=== PATIENT | male | born 1960 | race Caucasian/White ===

== ENCOUNTER 2019-04-02 10:22 | Emergency (ER) | payer OTHER ==
[~2019-04-02] VITALS: Ht 188 cm; Wt 126.1 kg
[~2019-04-02 10:22] MED LIST: AMIODARONE HCL400 MG PO; AMOXICILLIN500 MG PO; ATORVASTATIN CA20 MG PO; AUGMENTIN 875-1 EACH PO; Apixaban PO; CARDIZEM30 MG PO; CENTRUM SILVER1 EAC3 PO; COLACE100 MG/10 NG; DEPAKOTE250 MG PO; DULCOLAX SUPP10 MG PR; Diltiazem Hcl PO; ELOQUIST PO; FENOFIBRATE145 MG PO; FLAGYL500 MG; FUROSEMIDE20 MG PO; Fluticasone Propionate NS; LACTULOSE20 GM/30 M PO; LISINOPRIL10 MG PO; METOLAZONE5 MG PO; MIDODRINE HCL5 MG PO; PENICILLIN V P500 MG PO; PREDNISONE20 MG PO; RANITIDINE HCL300 M1 PO; SEROQUEL100 MG PO; SEROQUEL25 MG PO; TYLENOL WITH C1 EACH PO; VITAMIN D1000 UNI1 PO; eliquis PO; nystatin cream TOP
--- OUTSIDE RECORDS SUMMARY | 2019-04-02 10:26 | XMS REPORT | Clinical Summary ---
Author Author Blanca Yarsani Organization Blanca Yarsani Address Unknown Phone Unavailable Care Team Providers Care Revenue Enforcement Collection Agent Name Role Phone Juanito Fam MD PCP Allergies Comments Active Allergy Reactions Severity Noted Date Previous amiodarone toxicity Amiodarone High 05/30/2018 Medications End Date Status Medication Sig Dispensed Refills Start Date Active acetaminophen-codeine TK 1 TO 2 TS 0 (TYLENOL WITH CODEINE #3) PO Q 4 TO 6 H 8 300-30 mg per tablet PRN Active DIGOX 125 mcg tablet 0 8 Active furosemide (LASIX) 40 mg TK 1 T PO QAM 0 tablet 8 Active metoprolol tartrate TK 1 T PO D 3 (LOPRESSOR) 25 mg tablet 8 Active pantoprazole (PROTONIX) TK 1 T PO 3 40 MG EC tablet QAM AC 8 Active potassium chloride 40 Take by 0 mEq/15 mL liquid mouth. 06/01/2018 Discontinued ELIQUIS 5 mg tablet Take 5 mg by 0 mouth 2 (two) 7 times a day. 06/01/2018 Discontinued furosemide (LASIX) 40 mg Take 40 mg by 0 tablet mouth every morning. 06/01/2018 Discontinued tamsulosin (FLOMAX) 0.4 Take 0.4 mg 0 mg capsule,extended by mouth release 24hr every morning. 06/01/2018 Discontinued potassium chloride Take 10 mEq 0 (K-DUR,KLOR-CON) 10 MEQ by mouth CR tablet every morning. 06/01/2018 Discontinued spironolactone Take 50 mg by 0 (ALDACTONE) 50 MG tablet mouth every morning. 06/01/2018 Discontinued lactulose 10 gram/15 mL Take 10 g by 0 (15 mL) solution mouth 2 (two) times a day as needed. 06/01/2018 Discontinued diltiazem (CardIZEM) 90 Take 90 mg by 0 MG tablet mouth 2 (two) times a day. 06/01/2018 Discontinued DIGOXIN ORAL Take 250 mcg 0 by mouth daily. 07/01/2018 atorvastatin (LIPITOR) 20 Take 1 tablet 30 tablet 0 201 MG tablet (20 mg total) 8 by mouth nightly for 30 days. 06/20/2018 Discontinued tamsulosin (FLOMAX) 0.4 Take 1 30 capsule 0 06/02/201 mg capsule capsule (0.4 8 mg total) by mouth every morning for 30 days. 07/01/2018 diltiazem (CardIZEM) 90 Take 1 tablet 60 tablet 0 201 MG tablet (90 mg total) 8 by mouth 2 (two) times a day for 30 days. 07/02/2018 digOXIN (LANOXIN) 250 mcg Take 1 tablet 30 tablet 0 06/02/201 tablet (250 mcg 8 total) by mouth daily for 30 days. 07/01/2018 apixaban (ELIQUIS) 5 mg Take 1 tablet 60 tablet 0 tablet (5 mg total) 8 by mouth 2 (two) times a day for 30 days. 07/02/2018 furosemide (LASIX) 40 mg Take 1 tablet 30 tablet 0 201 tablet (40 mg total) 8 by mouth every morning for 30 days. 06/20/2018 Discontinued potassium chloride Take 1 tablet 30 tablet 0 (K-DUR,KLOR-CON) 10 MEQ (10 mEq 8 CR tablet total) by mouth every morning for 30 days. 06/20/2018 Discontinued spironolactone Take 1 tablet 30 tablet 0 (ALDACTONE) 50 MG tablet (50 mg total) 8 by mouth every morning for 30 days. 06/20/2018 Discontinued nicotine (NICODERM CQ) 21 Place 1 patch 30 patch 0 mg/24 hr on the skin 8 daily for 30 days. 07/21/2018 atorvastatin (LIPITOR) 20 Take 1 tablet 30 tablet 0 201 MG tablet (20 mg total) 8 by mouth nightly for 30 days. 07/21/2018 aspirin 81 mg chewable Chew 1 tablet 30 tablet 0 tablet (81 mg total) 8 daily for 30 days. 07/21/2018 thiamine mononitrate, vit Take 1 tablet 30 tablet 0 B1, (B-1) 100 mg tablet (100 mg 8 total) by mouth daily for 30 days. 08/31/2018 Discontinued ELIQUIS 5 mg tablet 0 8 08/31/2018 Discontinued naproxen (NAPROSYN) 500 0 MG tablet 8 09/30/2018 diltiazem SR (CardIZEM Take 1 60 capsule 0 SR) 90 MG 12 hr capsule capsule (90 8 mg total) by mouth 2 (two) times a day for 30 days. 09/30/2018 apixaban (ELIQUIS) 5 mg Take 1 tablet 60 tablet 0 tablet (5 mg total) 8 by mouth 2 (two) times a day for 30 days. 10/01/2018 aspirin (ECOTRIN) 81 MG Take 1 tablet 30 tablet 0 enteric coated tablet (81 mg total) 8 by mouth daily for 30 days. 09/30/2018 atorvastatin (LIPITOR) 20 Take 1 tablet 30 tablet 0 MG tablet (20 mg total) 8 by mouth nightly for 30 days. Active Problems Problem Noted Date Orthostatic syncope 06/20/2018 Atrial fibrillation with rapid ventricular response 05/30/2018 Atrial fibrillation with RVR 10/08/2017 Hypertension Coronary artery disease CHF (congestive heart failure) Encounters Care Team Description Date Type Specialty Gaurav Mcdonald MD Bavare, Arusha Amod, MD Li, Xiao Hong, MD Atrial fibrillation with RVR (HCC) (Primary Dx) 08/28/2018 Hospital General Internal Medicine - Encounter 08/31/2018 Sujata Gilmore Jr., Darnell Rose MD Morris, David, DO Roberts, Matthew Thomas, DO Orthostatic syncope (Primary Dx); Lactic acidosis; Alcoholic intoxication without complication; Scalp laceration, initial encounter; Closed head injury, initial encounter 06/19/2018 Emergency General Internal Medicine - 06/21/2018 Anila Fajardo MD Fall, initial encounter (Primary Dx); Syncope, unspecified syncope type; Closed fracture of distal end of left radius, unspecified fracture morphology, initial encounter; Alcoholic intoxication with complication; Atrial fibrillation, unspecified type; Closed fracture of distal end of left ulna, unspecified fracture morphology, initial encounter 06/16/2018 Emergency Emergency Medicine Ricardo, Piter Byers, Luke Islas, Atrial fibrillation with rapid ventricular response (Primary Dx); Alcoholic intoxication without complication 05/30/2018 [facility] General Internal Medicine - Encounter 06/01/2018 after 04/01/2018 Social History Date Tobacco Use Types Packs/Day Years Used Current Every Day Smoker Cigarettes Smokeless Tobacco: Never Used Tobacco Cessation: Ready to Quit: No; Counseling Given: No Alcohol Use Drinks/Week oz/Week Comments Yes occasional ETOH per pt. Sex Assigned at Date Recorded Not on file Industry Job Start Date Occupation Not on file Not on file Not on file Travel End Travel History Travel Start No recent travel history available. Last Filed Vital Signs Time Taken Vital Sign Reading 08/31/2018 12:18 PM CDT Blood Pressure 113/74 08/31/2018 12:18 PM CDT Pulse 85 08/31/2018 12:18 PM CDT Temperature 36.6 C (97.8 F) 08/31/2018 12:18 PM CDT Respiratory Rate 21 08/31/2018 12:18 PM CDT Oxygen Saturation 96% - Inhaled Oxygen - Concentration 08/28/2018 11:27 PM CDT Weight 113 kg (250 lb) 08/29/2018 4:51 AM CDT Height 188 cm (6' 2") 08/28/2018 11:27 PM CDT Body Mass Index 32.1 Plan of Treatment Health Maintenance Due Date Last Done Comments COLON CANCER SCREENING 2010 SHINGLES VACCINES (#1) 2010 INFLUENZA VACCINE 06/14/2019 Procedures Comments Procedure Name Priority Date/Time Associated Diagnosis ESTIMATED GFR Routine 08/31/2018 4:18 AM CDT BASIC METABOLIC PANEL Routine 08/31/2018 4:18 AM CDT HC COMPLETE BLD COUNT Routine 08/31/2018 W/AUTO DIFF 4:18 AM CDT URINALYSIS, AUTOMATED Routine 08/30/2018 WITH MICROSCOPY 8:49 PM CDT URINE DRUGS OF ABUSE Routine 08/30/2018 SCREEN 8:49 PM CDT ESTIMATED GFR Routine 08/30/2018 5:33 AM CDT BASIC METABOLIC PANEL Routine 08/30/2018 5:33 AM CDT HC COMPLETE BLD COUNT Routine 08/30/2018 W/AUTO DIFF 5:33 AM CDT ECHOCARDIOGRAM 2D Routine 08/29/2018 COMPLETE W MMODE SPECTRAL 8:28 AM CDT COLOR DOPPLER ([id number]) LIPID PANEL Routine 08/29/2018 6:00 AM CDT TROPONIN Routine 08/29/2018 6:00 AM CDT ESTIMATED GFR Routine 08/29/2018 6:00 AM CDT MAGNESIUM LEVEL Routine 08/29/2018 6:00 AM CDT BASIC METABOLIC PANEL Routine 08/29/2018 6:00 AM CDT HC COMPLETE BLD COUNT Routine 08/29/2018 W/AUTO DIFF 6:00 AM CDT DIGOXIN LEVEL STAT 08/29/2018 2:44 AM CDT TROPONIN Timed 08/29/2018 2:44 AM CDT XR CHEST 1 VW PORTABLE STAT 08/29/2018 12:10 AM CDT ECG ED PRELIMINARY Routine 08/28/2018 INTERPRETATION 11:46 PM CDT SC CRITICAL CARE, ADDL 30 Routine 08/28/2018 MIN 11:46 PM CDT SC CRITICAL CARE, E/M Routine 08/28/2018 30-74 MINUTES 11:46 PM CDT ESTIMATED GFR STAT 08/28/2018 11:34 PM CDT B NATRIURETIC PEPTIDE STAT 08/28/2018 11:34 PM CDT TROPONIN STAT 08/28/2018 11:34 PM CDT COMPREHENSIVE METABOLIC STAT 08/28/2018 PANEL 11:34 PM CDT HC COMPLETE BLD COUNT STAT 08/28/2018 W/AUTO DIFF 11:34 PM CDT ECG 12-LEAD STAT 08/28/2018 11:28 PM CDT LACTIC ACID LEVEL Routine 06/20/2018 5:40 AM CDT ZZESTIMATED GFR Routine 06/20/2018 5:07 AM CDT ALCOHOL LEVEL, BLOOD Routine 06/20/2018 5:07 AM CDT COMPREHENSIVE METABOLIC Routine 06/20/2018 PANEL 5:07 AM CDT ZZESTIMATED GFR STAT 06/19/2018 10:44 PM CDT ALCOHOL LEVEL, BLOOD STAT 06/19/2018 10:44 PM CDT COMPREHENSIVE METABOLIC STAT 06/19/2018 PANEL 10:44 PM CDT LACTIC ACID LEVEL Routine 06/19/2018 10:44 PM CDT LIPID PANEL Routine 06/19/2018 10:40 PM CDT TROPONIN Timed 06/19/2018 10:24 PM CDT BETA HYDROXYBUTYRATE Timed 06/19/2018 8:20 PM CDT LACTIC ACID LEVEL Timed 06/19/2018 8:[address] HEAD WO CONTRAST STAT 06/19/2018 8:[address] CERVICAL SPINE WO STAT 06/19/2018 CONTRAST 8:13 PM CDT ZZESTIMATED GFR STAT 06/19/2018 6:30 PM CDT ALCOHOL LEVEL, BLOOD STAT 06/19/2018 6:30 PM CDT B NATRIURETIC PEPTIDE STAT 06/19/2018 6:30 PM CDT TROPONIN STAT 06/19/2018 6:30 PM CDT COMPREHENSIVE METABOLIC STAT 06/19/2018 PANEL 6:30 PM CDT TYPE AND SCREEN Routine 06/19/2018 6:30 PM CDT PARTIAL THROMBOPLASTIN STAT 06/19/2018 TIME (PTT) 6:30 PM CDT PROTHROMBIN TIME WITH INR STAT 06/19/2018 6:30 PM CDT HC COMPLETE BLD COUNT STAT 06/19/2018 W/AUTO DIFF 6:30 PM CDT POC GLUCOSE Routine 06/19/2018 6:27 PM CDT ECG 12-LEAD STAT 06/19/2018 6:23 PM CDT ECG ED PRELIMINARY Routine 06/19/2018 INTERPRETATION 6:19 PM CDT SC CRITICAL CARE, E/M Routine 06/19/2018 30-74 MINUTES 6:19 PM CDT SC RESUPERF WND BODY Routine 06/19/2018 7.6-12.5 CM 6:19 PM CDT ALCOHOL LEVEL, BLOOD Timed 06/16/2018 7:45 AM CDT LACTIC ACID LEVEL, SEPSIS Timed 06/16/2018 - NOW AND REPEAT 2X EVERY 7:45 AM CDT 3 HOURS TROPONIN Timed 06/16/2018 4:30 AM CDT LACTIC ACID LEVEL, SEPSIS Timed 06/16/2018 - NOW AND REPEAT 2X EVERY 4:30 AM CDT 3 HOURS XR WRIST 3+ VW LEFT STAT 06/16/2018 2:13 AM CDT DIGOXIN LEVEL STAT 06/16/2018 2:05 AM CDT ZZESTIMATED GFR STAT 06/16/2018 2:05 AM CDT ALCOHOL LEVEL, BLOOD STAT 06/16/2018 2:05 AM CDT B NATRIURETIC PEPTIDE STAT 06/16/2018 2:05 AM CDT TROPONIN STAT 06/16/2018 2:05 AM CDT CREATINE KINASE, TOTAL STAT 06/16/2018 (CPK) 2:05 AM CDT LACTIC ACID LEVEL, SEPSIS STAT 06/16/2018 - NOW AND REPEAT 2X EVERY 2:05 AM CDT 3 HOURS PARTIAL THROMBOPLASTIN STAT 06/16/2018 TIME (PTT) 2:05 AM CDT PROTHROMBIN TIME WITH INR STAT 06/16/2018 2:05 AM CDT COMPREHENSIVE METABOLIC STAT 06/16/2018 PANEL 2:05 AM CDT HC COMPLETE BLD COUNT STAT 06/16/2018 W/AUTO DIFF 2:05 AM CDT ECG 12-LEAD STAT 06/16/2018 1:45 AM CDT SC APPLY LONG ARM SPLINT Routine 06/16/2018 1:39 AM CDT ZZESTIMATED GFR Routine 06/01/2018 7:12 AM CDT HC COMPLETE BLD COUNT Routine 06/01/2018 W/AUTO DIFF 7:12 AM CDT PHOSPHORUS LEVEL Routine 06/01/2018 7:12 AM CDT MAGNESIUM LEVEL Routine 06/01/2018 7:12 AM CDT COMPREHENSIVE METABOLIC Routine 06/01/2018 PANEL 7:12 AM CDT URINE CULTURE SCREEN Routine 05/31/2018 11:02 PM CDT URINALYSIS SCREEN AND Routine 05/31/2018 MICROSCOPY, WITH REFLEX 11:00 PM CDT TO CULTURE GRAM STAIN ONLY Routine 05/31/2018 11:00 PM CDT URINE CULTURE Routine 05/31/2018 11:00 PM CDT ECHOCARDIOGRAM 2D Routine 05/31/2018 COMPLETE W MMODE SPECTRAL 8:12 AM CDT COLOR DOPPLER ([id number]) LIPID PANEL Routine 05/31/2018 4:17 AM CDT TROPONIN Routine 05/31/2018 4:17 AM CDT PHOSPHORUS LEVEL Routine 05/31/2018 4:17 AM CDT ZZESTIMATED GFR Routine 05/31/2018 4:17 AM CDT THYROID STIMULATING Routine 05/31/2018 HORMONE 4:17 AM CDT T3, FREE Routine 05/31/2018 4:17 AM CDT PROTHROMBIN TIME WITH INR Routine 05/31/2018 4:17 AM CDT PARTIAL THROMBOPLASTIN Routine 05/31/2018 TIME (PTT) 4:17 AM CDT MAGNESIUM LEVEL Routine 05/31/2018 4:17 AM CDT LIPID PANEL Routine 05/31/2018 4:17 AM CDT HEMOGLOBIN A1C Routine 05/31/2018 4:17 AM CDT COMPREHENSIVE METABOLIC Routine 05/31/2018 PANEL 4:17 AM CDT HC COMPLETE BLD COUNT Routine 05/31/2018 W/AUTO DIFF 4:17 AM CDT B NATRIURETIC PEPTIDE Routine 05/31/2018 4:17 AM CDT ECG 12-LEAD Routine 05/31/2018 4:12 AM CDT MAGNESIUM LEVEL STAT 05/31/2018 1:26 AM CDT PHOSPHORUS LEVEL STAT 05/31/2018 1:26 AM CDT TROPONIN STAT 05/31/2018 1:26 AM CDT ECG 12-LEAD Routine 05/30/2018 11:41 PM CDT ECG 12-LEAD Routine 05/30/2018 7:35 PM CDT ECG 12-LEAD STAT 05/30/2018 6:06 PM CDT ALCOHOL LEVEL, BLOOD STAT 05/30/2018 5:24 PM CDT XR CHEST 1 VW PORTABLE STAT 05/30/2018 5:16 PM CDT BILIRUBIN DIRECT Routine 05/30/2018 5:04 PM CDT THYROID STIMULATING Routine 05/30/2018 HORMONE 5:04 PM CDT ZZESTIMATED GFR STAT 05/30/2018 5:04 PM CDT B NATRIURETIC PEPTIDE STAT 05/30/2018 5:04 PM CDT TROPONIN STAT 05/30/2018 5:04 PM CDT COMPREHENSIVE METABOLIC STAT 05/30/2018 PANEL 5:04 PM CDT HC COMPLETE BLD COUNT STAT 05/30/2018 W/AUTO DIFF 5:04 PM CDT ECG ED PRELIMINARY Routine 05/30/2018 INTERPRETATION 4:33 PM CDT SC CRITICAL CARE, E/M Routine 05/30/2018 30-74 MINUTES 4:33 PM CDT ECG 12-LEAD STAT 05/30/2018 4:32 PM CDT after 04/01/2018 Results * Estimated GFR (08/31/2018 4:18 AM CDT) Only the most recent of 4 results within the time period is included. Pathologist [facility] Estimated GFR >=90 mL/min/1.73 m2 [facility] DEPARTMENT Comment: OF PATHOLOGY CatergoryUnitsInte AND GENOMIC rpretation MEDICINE G1 >=90 Normal or high G2 60-89Mildly decreased [id number] Mildly to moderately decreased [id number] Moderately to severely decreased G4 15-29Severely decreased G5 <15Kidney failure The eGFR was calculated using the Chronic Kidney Disease Epidemiology Collaboration (CKD-EPI) equation. Interpretation is based on recommendations of the National Kidney Foundation-Kidney Disease Outcomes Quality Initiative (NKF-KDOQI) published in 2014. Specimen Plasma specimen Performing Organization Address City/State/Zipcode Phone Number [place] [phone] [place] [address] PATHOLOGY AND [facility] * CBC with platelet and differential (08/31/2018 4:18 AM CDT) Only the most recent of 9 results within the time period is included. Pathologist [facility] WBC 8.7 4.2 - 11.0 k/uL [facility] DEPARTMENT OF PATHOLOGY AND GENOMIC MEDICINE RBC 4.63 4.04 - 5.86 m/uL [facility] PATHOLOGY AND GENOMIC MEDICINE HGB 14.9 13.0 - 17.3 g/dL [facility] PATHOLOGY AND GENOMIC MEDICINE HCT 45.5 (H) 34.0 - 45.0 % [facility] DEPARTMENT PATHOLOGY AND GENOMIC MEDICINE MCV 98.3 (H) 80.0 - 98.0 fL [facility] DEPARTMENT OF PATHOLOGY AND GENOMIC MEDICINE MCH 32.2 27.0 - 34.0 pg [facility] DEPARTMENT OF PATHOLOGY AND GENOMIC MEDICINE MCHC 32.7 31.5 - 36.5 g/dL [facility] DEPARTMENT OF PATHOLOGY AND GENOMIC MEDICINE RDW - SD 46.9 37.0 - 51.0 fL [facility] DEPARTMENT OF PATHOLOGY AND GENOMIC MEDICINE MPV 9.4 7.4 - 10.4 fL [facility] DEPARTMENT OF PATHOLOGY AND GENOMIC MEDICINE Platelet count 245 150 - 400 k/uL [facility] DEPARTMENT OF PATHOLOGY AND GENOMIC MEDICINE Nucleated RBC 0.00 /100 WBC [facility] DEPARTMENT OF PATHOLOGY AND GENOMIC MEDICINE Neutrophils 61.2 36.0 - 66.0 % [facility] DEPARTMENT OF PATHOLOGY AND GENOMIC MEDICINE Lymphocytes 25.8 24.0 - 44.0 % [facility] DEPARTMENT OF PATHOLOGY AND GENOMIC MEDICINE Monocytes 10.1 (H) 0.0 - 6.0 % [facility] DEPARTMENT OF PATHOLOGY AND GENOMIC MEDICINE Eosinophils 1.7 0.0 - 6.0 % [facility] DEPARTMENT OF PATHOLOGY AND GENOMIC MEDICINE Basophils 0.5 0.0 - 1.2 % [facility] DEPARTMENT OF PATHOLOGY AND GENOMIC MEDICINE Immature 0.7 0.0 - 1.0 % [facility] granulocytes OF PATHOLOGY AND GENOMIC MEDICINE Specimen Blood Performing Organization Address City/[facility] Phone Number [address] [place] [address] PATHOLOGY AND [facility] * Basic metabolic panel (08/31/2018 4:18 AM CDT) Only the most recent of 3 results within the time period is included. Pathologist [facility] Sodium 137 135 - 150 mEq/L [facility] DEPARTMENT OF PATHOLOGY AND GENOMIC MEDICINE Potassium 4.4 3.5 - 5.0 mEq/L [facility] DEPARTMENT OF PATHOLOGY AND GENOMIC MEDICINE Chloride 102 98 - 112 mEq/L [facility] DEPARTMENT OF PATHOLOGY AND GENOMIC MEDICINE CO2 26 24 - 31 mmol/L [facility] DEPARTMENT OF PATHOLOGY AND GENOMIC MEDICINE Anion gap 9@ANIO 7 - 15 mEq/L [facility] DEPARTMENT OF PATHOLOGY AND GENOMIC MEDICINE BUN 19 (H) 7 - 18 mg/dL [facility] DEPARTMENT OF PATHOLOGY AND GENOMIC MEDICINE Creatinine 0.80 0.70 - 1.20 mg/dL [facility] DEPARTMENT OF PATHOLOGY AND GENOMIC MEDICINE Glucose 115 (H) 65 - 100 mg/dL [facility] DEPARTMENT OF PATHOLOGY AND GENOMIC MEDICINE Calcium 9.3 8.3 - 10.2 mg/dL [facility] DEPARTMENT PATHOLOGY AND GENOMIC MEDICINE Specimen Plasma specimen Performing Organization Address City/[facility] Cent[facility]ode Phone Number [address] [place] [address] [facility] * Urine drugs of abuse screen (08/30/2018 8:49 PM CDT) Amphetamine Negative [facility] DEPARTMENT screen, urine OF PATHOLOGY AND GENOMIC MEDICINE Barbiturate Negative [facility] screen, urine OF PATHOLOGY AND GENOMIC MEDICINE Benzodiazepine Negative [facility] screen, urine OF PATHOLOGY AND GENOMIC MEDICINE Cannabinoid Negative [facility] screen, urine OF PATHOLOGY AND GENOMIC MEDICINE Cocaine screen, Negative [facility] DEPARTMENT urine OF PATHOLOGY AND GENOMIC MEDICINE Methadone Negative [facility] DEPARTMENT metabolite OF PATHOLOGY (EDDP), urine AND GENOMIC MEDICINE Opiates screen, Negative [facility] DEPARTMENT urine OF PATHOLOGY AND GENOMIC MEDICINE Phencyclidine Negative [facility] DEPARTMENT screen, urine OF PATHOLOGY AND GENOMIC MEDICINE Specimen Urine Performing Organization Address City/[facility]/Zipcode Phone Number [facility] [address] [place] [address] PATHOLOGY AND [facility] MEDICINE * Urinalysis, automated with microscopy (08/30/2018 8:49 PM CDT) Color, UA Yellow [facility] DEPARTMENT OF PATHOLOGY AND GENOMIC MEDICINE Appearance, UA Clear [facility] DEPARTMENT OF PATHOLOGY AND GENOMIC MEDICINE Specific 1.017 1.001 - 1.035 [facility] DEPARTMENT gravity, UA OF PATHOLOGY AND GENOMIC MEDICINE pH, UA 6.0 5.0 - 8.5 [facility] DEPARTMENT OF PATHOLOGY AND GENOMIC MEDICINE Protein, UA Negative Negative [facility] DEPARTMENT OF PATHOLOGY AND GENOMIC MEDICINE Glucose, UA Negative Negative [facility] DEPARTMENT OF PATHOLOGY AND GENOMIC MEDICINE Ketones, UA Negative Negative [facility] DEPARTMENT OF PATHOLOGY AND GENOMIC MEDICINE Bilirubin, UA Negative Negative [facility] DEPARTMENT OF PATHOLOGY AND GENOMIC MEDICINE Blood, UA Negative Negative [facility] DEPARTMENT OF PATHOLOGY AND GENOMIC MEDICINE Nitrite, UA Negative Negative [facility] DEPARTMENT OF PATHOLOGY AND GENOMIC MEDICINE Urobilinogen, Negative <2.0 [facility] DEPARTMENT UA OF PATHOLOGY AND GENOMIC MEDICINE Leukocyte Negative Negative [facility] DEPARTMENT esterase, UA OF PATHOLOGY AND GENOMIC MEDICINE WBC, UA 1 0 - 1 /HPF [facility] DEPARTMENT OF PATHOLOGY AND GENOMIC MEDICINE RBC, UA 1 0 - 5 /HPF [facility] DEPARTMENT OF PATHOLOGY AND GENOMIC MEDICINE Bacteria, UA None seen None seen [facility] DEPARTMENT OF PATHOLOGY AND GENOMIC MEDICINE Yeast, UA None seen [facility] DEPARTMENT OF PATHOLOGY AND GENOMIC MEDICINE Yeast with None seen [facility] DEPARTMENT pseudohyphae, OF PATHOLOGY UA AND GENOMIC MEDICINE Specimen Urine Performing Organization Address City/[facility]/Zipcode Phone Number [facility] [address] [place] [phone] PATHOLOGY AND GENOMIC MEDICINE * Echocardiogram complete w contrast and 3D if needed (08/29/2018 8:28 AM CDT) Ao Root 3.64 cm [facility] Diameter AoV Area, Vmax 2.32 cm2 [facility] AoV Area, VTI 2.49 cm2 [facility] AoV Mean PG 3.34 mmHg [facility] AoV Peak PG 5.97 mmHg [facility] AoV Vmax 1.22 m/s [facility] AoV VTI 0.19 m [facility] IVS,d 1.14 cm [facility] IVS/LVPW,2D 1.05 [facility] Left Atrium 5.20 cm [facility] Dimension Anterior LV,d 5.23 cm [facility] LV EF,2D 46.72 % [facility] LV,s 4.24 cm [facility] LVOT area 2.98 cm2 [facility] LVOT Diam,S 1.95 cm [facility] LVOT Vmax 0.94 m/s [facility] LVOT VTI 0.16 m [facility] LVPWD,d 1.08 cm [facility] TR Vpeak 1.93 mm/s [facility] MV E A ratio 101.49 [facility] TR pk grad 14.95 mmHg [facility] E wave 108.05 msec [facility] decelartion time MV Peak A [place] 0.01 m/s [facility] MV valve area p 7.02 cm2 [facility] 1/2 method MV Peak E [place] 0.90 m/s [facility] MV stenosis 31.33 ms [facility] pressure 1/2 time AV LVOT peak 3.57 mmHg [facility] gradient Ao Root 3.64 cm [facility] Diameter MV mean 0.97 mmHg [facility] gradient LV SYS VOL 80.53 ml [facility] LV CASEY VOL 131.53 ml [facility] LV SV Teich 2D 51.00 ml [facility] LV Vol s Teich 80.53 ml [facility] PSAX LVOT CO 3.92 l/min [facility] LVOT HR for 82.11 bpm [facility] LVOT CO MR peak grad 2.68 mmHg [facility] MV Vmax 0.82 m [facility] MV VTI Tips 0.17 m [facility] AoV Vmn 0.87 [facility] IVS s 2D 1.22 [facility] LV FS Teich 2D 18.93 [facility] MV AE ratio 0.01 [facility] LV FS Cube 2D 18.93 [facility] LVOT Vmn 0.65 [facility] Aov area Vmn 2.26 cm2 [facility] LVOT mean grad 1.96 mmHg [facility] MAX Pred HR 162.02 [facility] 85 of MPHR 137.72 [facility] Calc MPHR 162.02 bpm [facility] IVS pct thck 6.62 % [facility] PLAX LV SV Cube 2D 67.03 ml [facility] LV vol d cube 143.47 ml [facility] 2D LV vol s cube 76.44 ml [facility] 2D LVPW pct thck 15.40 % [facility] PLAX LVPW s PLAX 1.25 cm [facility] MV Decel slope 8.37 m/s2 [facility] Pred Exer Dur 9.02 [facility] R1 Pred METS R1 9.30 [facility] Velocity Ratio 0.77 m/s [facility] (V1/V2) EF 38.77 % [facility] E/A ratio 90.00 [facility] Specimen Narrative Performed At [facility] There is mild left ventricular concentric hypertrophy. Left Ventricular ejection fraction is 45 - 50%. Spectral Doppler shows impaired relaxation pattern of left ventricular diastolic filling. Right ventricular size is mildly enlarged. Left atrium size is mildly dilated. There is moderate sclerosis of the aortic valve leaflets. Performing Organization Address City/[facility]/Zipcode Phone Number [facility] [address] [place] [address] * Troponin (08/29/2018 6:00 AM CDT) Only the most recent of 10 results within the time period is included. [facility] Troponin <0.30 0.00 - 0.30 ng/mL [facility] DEPARTMENT Comment: OF PATHOLOGY 0.11 - 1.49 AND GENOMIC ng/mlMay MEDICINE indicate increased risk of acute coronary syndrome. >=1.5 ng/ml Consistent with acute myocardial infarction. The diagnostic value of a single normal or non-diagnostic result is questionable.Serial samples at 2-6 hour intervals are required to rule out acute myocardial injury. Specimen Plasma specimen Performing Organization Address City/[facility] Phone Number [facility] [address] [place] [address]. [place] [address] PATHOLOGY AND [facility] MEDICINE * Magnesium level (08/29/2018 6:00 AM CDT) Only the most recent of 4 results within the time period is included. [facility] [facility] Magnesium 1.90 1.60 - 2.60 mg/dL [facility] DEPARTMENT OF PATHOLOGY AND [facility] MEDICINE Specimen Plasma specimen Performing Organization Address City/[facility] Cent[facility]ode Phone Number [facility] DEPARTMENT OF [address] [place] [address]. [place] [address] PATHOLOGY AND [facility] MEDICINE * Lipid panel (08/29/2018 6:00 AM CDT) Only the most recent of 4 results within the time period is included. [facility] Cholesterol 202 (H) 0 - 199 mg/dL [facility] DEPARTMENT OF PATHOLOGY AND GENOMIC MEDICINE Triglycerides 251 (H) 0 - 149 mg/dL [facility] DEPARTMENT OF PATHOLOGY AND GENOMIC MEDICINE HDL cholesterol 39 (L) 40 - 9,999 mg/dL [facility] DEPARTMENT OF PATHOLOGY AND GENOMIC MEDICINE LDL cholesterol 140 (H)Comment: Result 0 - 99 mg/dL [facility] DEPARTMENT obtained by direct LDL OF PATHOLOGY measurement AND GENOMIC MEDICINE Lipid panel See below [facility] DEPARTMENT interpretation Comment: OF PATHOLOGY Total Cholesterol AND GENOMIC (mg/dL) MEDICINE LDL Cholesterol (mg/dL) <200 Desirable <100 Optimal 200-239Borderline -[id number] 29Near or above optimal >=240High 130-159Borderline- high 160-189High >=190Very high HDL Cholesterol (mg/dL) Triglycerides (mg/dL) <40Low <150 Normal >=60 High 150-199Borderline- high 200-499High >=500Very high Risk Catergories that modify LDL goals. Risk Catergories LDL goal (mg/dL) CHD and CHD risk equivalent <100 (10-year risk >20%) Multiple (2+) risk factors <130 (10-year risk=<20%) 0-1 risk factors <160 (<10-year risk) Defining levels of lipids in metabolic syndrome Triglycerides >=150 mg/dL HDL Cholesterol Men <40 mg/dL Women <50 mg/dL Non-HDL cholesterol is a second target for therapy in persons with high triglycerides (>=200 mg/dL) Specimen Plasma specimen Performing Organization Address City/[facility] Centercode Phone Number [facility] [address] [place] [address] PATHOLOGY AND [facility] MEDICINE * Digoxin level (08/29/2018 2:44 AM CDT) Only the most recent of 2 results within the time period is included. Digoxin <0.3 (L) 0.8 - 2.0 ng/mL [facility] DEPARTMENT Comment: OF PATHOLOGY For valid Digoxin results, at AND GENOMIC least 6 hours should elapse MEDICINE between time of last dose and collection of blood. Otherwise, result may be false high. Therapeutic Range: 0.8 - 2.0 ng/mL Specimen Blood Performing Organization Address [facility] Centercode Phone Number [place] [address] [facility] [place] [address] PATHOLOGY AND GENOMIC MEDICINE * XR Chest 1 Vw Portable (08/29/2018 12:10 AM CDT) Only the most recent of 2 results within the time period is included. Specimen Narrative Performed At EXAMINATION: XR CHEST 1 VW PORTABLE [facility] CLINICAL HISTORY: chest pain COMPARISON:05/30/2018. IMPRESSION: The lungs are clear. No pleural effusion or pneumothorax. Cardiac silhouette appears prominent due in part to technique. No acute osseous abnormalities. [facility]-[id number] Procedure Note Hm Interface, Radiology Results Incoming - 08/29/2018 12:17 AM CDT EXAMINATION: XR CHEST 1 VW PORTABLE CLINICAL HISTORY: chest pain COMPARISON: 05/30/2018. IMPRESSION: The lungs are clear. No pleural effusion or pneumothorax. Cardiac silhouette appears prominent due in part to technique. No acute osseous abnormalities. [facility]-[id number] Performing Organization Address City/State/Zipcode Phone Number [facility] [address] [place] [address] * ECG ED Preliminary Interpretation - NOT AN ORDER (08/28/2018 11:46 PM CDT) Only the most recent of 3 results within the time period is included. Narrative Performed At Gaurav Mcdonald MD 09/01/20187:56 PM ECG ED Preliminary Interpretation - Not an Order Performed by: GAURAV MCDONALD Authorized by: GAURAV MCDONALD ECG reviewed by ED Physician in the absence of a perinatology physician: yes Previous ECG: Previous ECG:Compared to current Interpretation: Interpretation: abnormal Rate: ECG rate:160 ECG rate assessment: tachycardic Rhythm: Rhythm: atrial fibrillation Rhythm comment:With RVR Ectopy: Ectopy: none QRS: QRS axis:Normal QRS intervals:Normal Conduction: Conduction: normal ST segments: ST segments:Normal T waves: T waves: normal * CRITICAL CARE (08/28/2018 11:46 PM CDT) Narrative Performed At Gaurav Mcdonald MD 09/01/20187:56 PM Critical Care Performed by: GAURAV MCDONALD Authorized by: GAURAV MCDONALD Critical care provider statement: Critical care time (minutes):75 Critical care was necessary to treat or prevent imminent or life-threatening deterioration of the following conditions:Cardiac failure and dehydration Critical care was time spent personally by me on the following activities:Development of treatment plan with patient or surrogate, discussions with consultants, discussions with primary provider, evaluation of patient's response to treatment, blood draw for specimens, ordering and performing treatments and interventions, ordering and review of laboratory studies, ordering and review of radiographic studies, pulse oximetry, re-evaluation of patient's condition, review of old charts, examination of patient and interpretation of cardiac output measurements Marcus 'yes' if you are taking over critical care for this patient from another provider.: no * B natriuretic peptide (08/28/2018 11:34 PM CDT) Only the most recent of 5 results within the time period is included. [facility] BNP 82 0 - 100 pg/mL [facility] PATHOLOGY [facility] Specimen Blood Performing Organization Address City/State/Zipcode Phone Number [place] [address] [place] [address] PATHOLOGY AND [facility] * Comprehensive metabolic panel (08/28/2018 11:34 PM CDT) Only the most recent of 8 results within the time period is included. [facility] Sodium 140 135 - 150 mEq/L [facility] DEPARTMENT OF PATHOLOGY AND GENOMIC MEDICINE Potassium 5.1 (H) 3.5 - 5.0 mEq/L [facility] OF PATHOLOGY AND GENOMIC MEDICINE Chloride 103 98 - 112 mEq/L [facility] OF PATHOLOGY [facility] GENOMIC MEDICINE CO2 23 (L) 24 - 31 mmol/L [facility] DEPARTMENT OF PATHOLOGY AND GENOMIC MEDICINE Anion gap 14@ANIO 7 - 15 mEq/L [facility] DEPARTMENT OF PATHOLOGY AND GENOMIC MEDICINE BUN 13 7 - 18 mg/dL [facility] DEPARTMENT OF PATHOLOGY AND GENOMIC MEDICINE Creatinine 0.80 0.70 - 1.20 mg/dL [facility] DEPARTMENT OF PATHOLOGY AND GENOMIC MEDICINE Glucose 91 65 - 100 mg/dL [facility] DEPARTMENT OF PATHOLOGY AND GENOMIC MEDICINE Calcium 9.1 8.3 - 10.2 mg/dL [facility] DEPARTMENT OF PATHOLOGY AND GENOMIC MEDICINE Protein 7.3 6.3 - 8.3 g/dL [facility] DEPARTMENT OF PATHOLOGY AND GENOMIC MEDICINE Albumin 3.5 3.5 - 5.0 g/dL [facility] DEPARTMENT OF PATHOLOGY AND GENOMIC MEDICINE A/G ratio 0.9 0.7 - 3.8 [facility] DEPARTMENT OF PATHOLOGY AND GENOMIC MEDICINE Alkaline 134 (H) 0 - 129 U/L [facility] DEPARTMENT phosphatase OF PATHOLOGY AND GENOMIC MEDICINE AST 33 10 - 50 U/L [facility] DEPARTMENT OF PATHOLOGY AND GENOMIC MEDICINE ALT 17 5 - 50 U/L [facility] DEPARTMENT OF PATHOLOGY AND GENOMIC MEDICINE Total bilirubin 0.3 0.2 - 1.2 mg/dL [facility] DEPARTMENT OF PATHOLOGY AND GENOMIC MEDICINE Specimen Plasma specimen Performing Organization Address [facility] Centercosc Phone Number [facility] [address] [place] [address] PATHOLOGY AND GENOMIC MEDICINE * ECG 12 lead (08/28/2018 11:28 PM CDT) Only the most recent of 8 results within the time period is included. Ventricular 160 [facility]USE rate Atrial rate 159 [facility] QRSD interval 80 [facility] QT interval 296 [facility] QTC interval 482 [facility] QRS axis 1 -29 [facility] T wave axis 98 [facility]USE EKG impression Atrial fibrillation with rapid [facility] MUSE ventricular response-Nonspecific ST and T wave abnormality-Abnormal ECG-In automated comparison with ECG of 19-JUN-2018 18:23,-Vent. rate has increased BY75 BPM-Nonspecific T wave abnormality now evident in Lateral leads- Specimen Performing Organization Address [facility]ercosc Phone Number [facility] MUSE [address] [place] [address] * Lactic acid level (06/20/2018 5:40 AM CDT) Only the most recent of 3 results within the time period is included. Pathologist [facility] Lactic acid 0.7 0.5 - 2.2 mmol/L [facility] DEPARTMENT OF PATHOLOGY AND GENOMIC MEDICINE Specimen Blood Performing Organization Address City/[facility] Centercode Phone Number [facility] DEPARTMENT OF [address] [place] [address] PATHOLOGY AND GENOMIC MEDICINE * Estimated GFR (06/20/2018 5:07 AM CDT) Only the most recent of 7 results within the time period is included. GFR Non Af Amer >90 mL/min/1.73 m2 [facility] DEPARTMENT OF PATHOLOGY AND GENOMIC MEDICINE GFR Af Amer >90 mL/min/1.73 m2 [facility] DEPARTMENT Comment: OF PATHOLOGY Chronic kidney disease: <60 AND GENOMIC mL/min/1.73m2 MEDICINE Kidney failure: <15 mL/min/1.73m2 The estimated GFR is calculated from the IDMS-traceable Modification of Diet in Renal Disease Equation. The accuracy of the calculation is poor when the creatinine is normal. Calculated values >90 mL/min/1.73m2 are not reported. This equation has not been validated in children (<18 years), women, the elderly (>70 years), or ethnic groups other than Caucasians and Americans. Specimen Plasma specimen Performing Organization Address City/[facility] Centercode Phone Number [place] [phone] [place] [address] PATHOLOGY AND GENOMIC MEDICINE * Alcohol level, blood (06/20/2018 5:07 AM CDT) Only the most recent of 6 results within the time period is included. Alcohol None Detected mg/dL [facility] DEPARTMENT Comment: OF PATHOLOGY Normal AND GENOMIC None MEDICINE Detected Legal Intoxication in [place] 80 mg/dL (0.08%) Toxic Concentration 200 mg/dL (0.2%) Potentially Fatal 350-500 mg/dL (0.35%-0.5%) Alcohol percent None Detected % [facility] DEPARTMENT OF PATHOLOGY AND GENOMIC MEDICINE Specimen Blood Performing Organization Address City/[facility] Centercode Phone Number [facility] [address] [place] [address] PATHOLOGY AND [facility] MEDICINE * Beta hydroxybutyrate (06/19/2018 8:20 PM CDT) Beta 0.25 0.02 - 0.27 mmol/L [facility] DEPARTMENT hydroxybutyrate OF PATHOLOGY AND [facility] MEDICINE Specimen Blood Performing Organization Address [facility] Centerc[place] [address] PATHOLOGY AND [facility] MEDICINE * CT Head Wo Contrast (06/19/2018 8:14 PM CDT) Specimen Narrative Performed At EXAM: CT HEAD WO CONTRAST [facility] CLINICAL HISTORY: fallblood thinnershead lac TECHNIQUE: Noncontrast enhanced images of the brain were obtained from the skull base to the vertex. Both soft tissue and bone reconstruction algorithms were performed. CT scans are performed using radiation dose reduction techniques (iterative reconstruction and/or automated exposure control). Technical factors are evaluated and adjusted to ensure appropriate moderation of exposure. Automated dose management technology is applied to adjust radiation exposure while achieving a diagnostic quality image. COMPARISON:None. FINDINGS: The becerra-white matter differentiation is preserved and without evidence of acute territorial infarction. There is no evidence for acute intracranial hemorrhage, mass, mass effect, hydrocephalus, or extra-axial fluid collection. Orbits are unremarkable.Paranasal sinuses are clear.Mastoid air cells are normally pneumatized.Osseous structures are intact. Small extracranial soft tissue laceration/emphysema identified overlying the right posterior parietal calvarium. IMPRESSION: Small extracranial soft tissue laceration/emphysema identified overlying the right posterior parietal calvarium. No CT evidence for acute intracranial abnormality. [facility]-[id number] Procedure Note Interface, Radiology Results Incoming - 06/19/2018 8:21 PM CDT EXAM: CT HEAD WO CONTRAST CLINICAL HISTORY: fall blood thinners head lac TECHNIQUE: Noncontrast enhanced images of the brain were obtained from the skull base to the vertex. Both soft tissue and bone reconstruction algorithms were performed. CT scans are performed using radiation dose reduction techniques (iterative reconstruction and/or automated exposure control). Technical factors are evaluated and adjusted to ensure appropriate moderation of exposure. Automated dose management technology is applied to adjust radiation exposure while achieving a diagnostic quality image. COMPARISON: None. FINDINGS: The becerra-white matter differentiation is preserved and without evidence of acute territorial infarction. There is no evidence for acute intracranial hemorrhage, mass, mass effect, hydrocephalus, or extra-axial fluid collection. Orbits are unremarkable. Paranasal sinuses are clear. Mastoid air cells are normally pneumatized. Osseous structures are intact. Small extracranial soft tissue laceration/emphysema identified overlying the right posterior parietal calvarium. IMPRESSION: Small extracranial soft tissue laceration/emphysema identified overlying the right posterior parietal calvarium. No CT evidence for acute intracranial abnormality. [facility]-[id number] Performing Organization Address City/State/Zipcode Phone Number [facility] [address] [place] [address] * CT Cervical Spine Wo Contrast (06/19/2018 8:13 PM CDT) Specimen Narrative Performed At EXAMINATION: CT [facility] CL[facility]ICAL H[facility]: falletohblood thinners. COMPARISON:None TECHNIQUE: Axial noncontrast enhanced images of the cervical spine were obtained with coronal and sagittal reconstructed algorithms. CT imaging was performed with iterative reconstruction techniques and/or automated exposure control to reduce radiation dose. FINDINGS: No fracture or acute subluxation is identified. The paraspinous soft tissues are unremarkable. C2-3: Minimal left facet arthrosis. C3-4: Mild disc degenerative changes. Minimal right facet arthrosis. Moderate right and mild left foraminal stenosis. C4-5: Anterior endplate spurring. C5-6: Moderate disc degenerative changes with moderate bilateral uncal arthrosis. Moderate to severe bilateral foraminal stenosis. Mild canal stenosis. C6-7: Mild disc degenerative changes. C7-T1: Unremarkable. No incidental thyroid lesion is identified. IMPRESSION: No acute abnormality of the cervical spine is identified. Moderate to severe bilateral foraminal stenosis at C5-6. [facility]-[id number] Procedure Note [facility], Radiology Results - 06/19/2018 8:26 PM CDT EXAMINATION: CT CERVICAL SPINE WO CONTRAST CLINICAL HISTORY: fall etoh blood thinners. COMPARISON: None TECHNIQUE: Axial noncontrast enhanced images of the cervical spine were obtained with coronal and sagittal reconstructed algorithms. CT imaging was performed with iterative reconstruction techniques and/or automated exposure control to reduce radiation dose. FINDINGS: No fracture or acute subluxation is identified. The paraspinous soft tissues are unremarkable. C2-3: Minimal left facet arthrosis. C3-4: Mild disc degenerative changes. Minimal right facet arthrosis. Moderate right and mild left foraminal stenosis. C4-5: Anterior endplate spurring. C5-6: Moderate disc degenerative changes with moderate bilateral uncal arthrosis. Moderate to severe bilateral foraminal stenosis. Mild canal stenosis. C6-7: Mild disc degenerative changes. C7-T1: Unremarkable. No incidental thyroid lesion is identified. IMPRESSION: No acute abnormality of the cervical spine is identified. Moderate to severe bilateral foraminal stenosis at C5-6. [facility]-[id number] Performing Organization Address City/State/Zipcode Phone Number [facility] [address] [place] [address] * Partial thromboplastin time, activated (06/19/2018 6:30 PM CDT) Only the most recent of 3 results within the time period is included. PTT 33.2 23.0 - 36.0 sec [facility] DEPARTMENT Comment: OF PATHOLOGY PTT therapeutic range for AND GENOMIC unfractionated heparin is MEDICINE 61.0-112.0 seconds which corresponds to Anti-Xa 0.3-0.7 U/ml. Note:Change in Panic Value The PTT Panic Value is changing from 110 sec. to 100 sec. due to new instrumentation and reagents. Correlation studies have been performed to validate this result. Specimen Blood Performing Organization Address City/[facility] [place] [address] PATHOLOGY AND GENOMIC MEDICINE * Prothrombin time with INR (06/19/2018 6:30 PM CDT) Only the most recent of 3 results within the time period is included. [facility] Prothrombin 15.6 (H) 12.0 - 15.0 sec [facility] DEPARTMENT time OF PATHOLOGY AND GENOMIC MEDICINE INR 1.22 (H) 0.92 - 1.12 [facility] DEPARTMENT Comment: OF PATHOLOGY For patients on anticoagulant AND GENOMIC therapy, reference ranges MEDICINE below: Indication: INR Value Treatment of Venous Thrombosis, 2.0-3.0 pulmonary emboli, or prophylaxis of a venous thrombosis, or systemic emboli. High dose, high risk patients 3.0-4.5 with mechanical valves. NOTE:INR values over 3.0 are sometimes associated with gastrointestinal hemorrhage, especially values over 4.0. Specimen Blood Performing Organization Address [facility] Centerc[place] [address] PATHOLOGY AND GENOMIC MEDICINE * Type and screen (06/19/2018 6:30 PM CDT) [facility] ABO grouping O [facility] DEPARTMENT OF PATHOLOGY AND GENOMIC MEDICINE Rh type NEG [facility] DEPARTMENT OF PATHOLOGY AND GENOMIC MEDICINE Antibody screen NEG [facility] DEPARTMENT (gel) OF PATHOLOGY AND GENOMIC MEDICINE Specimen Blood Performing Organization Address [facility] Centerc[place] [address] PATHOLOGY AND GENOMIC MEDICINE * POC glucose (06/19/2018 6:27 PM CDT) [facility] POC glucose 99 65 - 100 mg/dL [facility] DEPARTMENT Comment: OF PATHOLOGY Meter ID: [id number] AND GENOMIC Event Sales Assistant: Sylvester SANTIAGO Specimen Performing Organization Address City/[facility]/[place] [address] PATHOLOGY AND GENOMIC MEDICINE * CRITICAL CARE (06/19/2018 6:19 PM CDT) Narrative Performed At Sujata Gilmore Jr., MD 06/21/20188:24 AM Critical Care Performed by: SUJATA GILMORE JR. Authorized by: SUJATA GILMORE JR. Critical care provider statement: Critical care time (minutes):42 Critical care start time:06/20/2018 2:05 AM Critical care end time:06/20/2018 2:47 AM Critical care time was exclusive of:Separately billable procedures and treating other patients Critical care was necessary to treat or prevent imminent or life-threatening deterioration of the following conditions:Dehydration Critical care was time spent personally by me on the following activities:Blood draw for specimens, development of treatment plan with patient or surrogate, discussions with consultants, discussions with primary provider, evaluation of patient's response to treatment, examination of patient, interpretation of cardiac output measurements, obtaining history from patient or surrogate, ordering and performing treatments and interventions, ordering and review of laboratory studies, ordering and review of radiographic studies, pulse oximetry, re-evaluation of patient's condition and review of old charts * LACERATION REPAIR (06/19/2018 6:19 PM CDT) Narrative Performed At Sujata Gilmore Jr., MD 06/21/20188:24 AM Laceration Repair Performed by: CARMEN LAM Authorized by: SUJATA GILMORE JR. Consent: Consent obtained:Verbal Consent given by:Patient Risks discussed:Infection, need for additional repair, nerve damage, poor wound healing, poor cosmetic result, pain, retained foreign body, tendon damage and vascular damage Alternatives discussed:No treatment Anesthesia (see MAR for exact dosages): Anesthesia method:Local infiltration Local anesthetic:Lidocaine 1% w/o epi Laceration details: Location:Scalp Scalp location:Occipital Length (cm):10 Repair type: Repair type:Simple Pre-procedure details: Preparation:Patient was prepped and draped in usual sterile fashion Exploration: Hemostasis achieved with:Direct pressure Wound exploration: wound explored through full range of motion and entire depth of wound probed and visualized Wound extent: no areolar tissue violation noted, no fascia violation noted, no foreign bodies/material noted, no muscle damage noted, no nerve damage noted, no tendon damage noted, no underlying fracture noted, no vascular damage noted and no amputation Contaminated: no Treatment: Area cleansed with:Saline Amount of cleaning:Extensive Irrigation solution:Sterile saline Irrigation volume:800 Irrigation method:Pressure wash Visualized foreign bodies/material removed: no Skin repair: Repair method:George Number of george:12 Approximation: Approximation:Close Post-procedure details: Dressing:Open (no dressing) Patient tolerance of procedure:Tolerated well, no immediate complications * Lactic acid level, SEPSIS - Now and repeat 2x every 3 hours (06/16/2018 7:45 AM CDT) Only the most recent of 3 results within the time period is included. Lactic acid 2.1 0.5 - 2.2 mmol/L [facility] DEPARTMENT OF PATHOLOGY AND GENOMIC MEDICINE Specimen Blood Performing Organization Address City/[facility] Phone Number [address] [place] [address] PATHOLOGY AND GENOMIC MEDICINE * XR Wrist 3+ Vw Left (06/16/2018 2:13 AM CDT) Specimen Narrative Performed At XR WRIST 3VW LEFT [facility] CLINICAL INDICATION:pain COMPARISON:None. IMPRESSION: There is an acute, comminuted, and mildly displaced fracture of the distal radius without significant angulation of the distal radial articular surface. There is an acute and mildly displaced ulnar styloid fracture. There is soft tissue swelling about the wrist. The bones are slightly demineralized. [facility]-[id number] Procedure Note Hm Interface, Radiology Results Incoming - 06/16/2018 2:19 AM CDT XR WRIST 3 VW LEFT CLINICAL INDICATION: pain COMPARISON: None. IMPRESSION: There is an acute, comminuted, and mildly displaced fracture of the distal radius without significant angulation of the distal radial articular surface. There is an acute and mildly displaced ulnar styloid fracture. There is soft tissue swelling about the wrist. The bones are slightly demineralized. [facility]-[id number] Performing Organization Address City/[facility] Phone Number [facility] [address] [place] [address] * Creatine kinase, total (CPK) (06/16/2018 2:05 AM CDT) Creatine kinase 45 39 - 308 U/L [facility] DEPARTMENT OF PATHOLOGY AND GENOMIC MEDICINE Specimen Plasma specimen Narrative Performed At [facility] to Beck Stanley/AJAY at06/16/201803:19 ln [facility] DEPARTMENT OF PATHOLOGY AND GENOMIC MEDICINE Performing Organization Address City/[facility] Phone Number [facility] DEPARTMENT OF [address] [place] [address] PATHOLOGY AND GENOMIC MEDICINE * SPLINT APPLICATION (06/16/2018 1:39 AM CDT) Narrative Performed At Anila Fajardo MD 06/17/2018 10:04 PM Splint Application Performed by: YENI JHA Authorized by: ANILA FAJARDO Consent: Consent obtained:Verbal Consent given by:Patient Risks discussed:Discoloration, numbness, pain and swelling Alternatives discussed:Referral Pre-procedure details: Sensation:Normal Skin color:[place] Procedure details: Laterality:Left Location:Wrist Wrist:L wrist Cast type:Short arm Splint type:Sugar tong Supplies:Cotton padding, Ortho-Glass and sling Post-procedure details: Pain:Improved Sensation:Normal Skin color:[place] Patient tolerance of procedure:Tolerated well, no immediate complications * Phosphorus level (06/01/2018 7:12 AM CDT) Only the most recent of 3 results within the time period is included. [facility] Phosphorus 3.9 2.4 - 4.5 mg/dL [facility] DEPARTMENT OF PATHOLOGY AND GENOMIC MEDICINE Specimen Plasma specimen Performing Organization Address [facility] Phone Number [facility] DEPARTMENT OF [address] [facility] [place] [address] PATHOLOGY AND GENOMIC MEDICINE * Gram stain only (05/31/2018 11:00 PM CDT) [facility] Gram stain Few WBC's [facility] DEPARTMENT result Few Gram positive rods OF PATHOLOGY Occasional Gram positive AND GENOMIC cocciin chains MEDICINE Comment: Specimen Information Specimen Source: Urine Specimen Site: Clean catch Specimen Urine Performing Organization Address [facility] Phone Number [facility] [place] [address], [address] [place] [address] PATHOLOGY AND GENOMIC MEDICINE * Urinalysis screen and microscopy, with reflex to culture (05/31/2018 11:00 PM CDT) Specimen site Clean catch [facility] DEPARTMENT OF PATHOLOGY AND GENOMIC MEDICINE Color, UA Yellow [facility] DEPARTMENT OF PATHOLOGY AND GENOMIC MEDICINE Appearance, UA Clear [facility] DEPARTMENT OF PATHOLOGY AND GENOMIC MEDICINE Specific 1.019 1.001 - 1.035 [facility] DEPARTMENT gravity, UA OF PATHOLOGY AND GENOMIC MEDICINE pH, UA 7.0 5.0 - 8.5 [facility] DEPARTMENT OF PATHOLOGY AND GENOMIC MEDICINE Protein, UA Negative Negative [facility] DEPARTMENT OF PATHOLOGY AND GENOMIC MEDICINE Glucose, UA Negative Negative [facility] DEPARTMENT OF PATHOLOGY AND GENOMIC MEDICINE Ketones, UA Negative Negative [facility] DEPARTMENT OF PATHOLOGY AND GENOMIC MEDICINE Bilirubin, UA Negative Negative [facility] DEPARTMENT OF PATHOLOGY AND GENOMIC MEDICINE Blood, UA Negative Negative [facility] DEPARTMENT OF PATHOLOGY AND GENOMIC MEDICINE Nitrite, UA Negative Negative [facility] DEPARTMENT OF PATHOLOGY AND GENOMIC MEDICINE Urobilinogen, 2.0 (A) <2.0 [facility] DEPARTMENT UA OF PATHOLOGY AND GENOMIC MEDICINE Leukocyte Small (A) Negative [facility] DEPARTMENT esterase, UA OF PATHOLOGY AND GENOMIC MEDICINE Epithelial Moderate /HPF [facility] DEPARTMENT cells, UA OF PATHOLOGY AND GENOMIC MEDICINE WBC, UA 3 (H) 0 - 1 /HPF [facility] DEPARTMENT OF PATHOLOGY AND GENOMIC MEDICINE RBC, UA 2 0 - 5 /HPF [facility] DEPARTMENT OF PATHOLOGY AND GENOMIC MEDICINE Bacteria, UA Trace None seen [facility] DEPARTMENT OF PATHOLOGY AND GENOMIC MEDICINE Yeast, UA None seen [facility] DEPARTMENT OF PATHOLOGY AND GENOMIC MEDICINE Yeast with None seen [facility] DEPARTMENT pseudohyphae, OF PATHOLOGY UA AND GENOMIC MEDICINE Specimen Urine Performing Organization Address City/State/Zipcode Phone Number [facility] DEPARTMENT OF [address] [place] [address] PATHOLOGY AND GENOMIC MEDICINE * Urine culture (05/31/2018 11:00 PM CDT) Pathologist [facility] Urine culture Mixed Gram positive cole [facility] DEPARTMENT isolate 10-5 cfu/ml OF PATHOLOGY (A) AND GENOMIC Comment: MEDICINE Specimen Information Specimen Source: Urine Specimen Site: Clean catch Specimen Urine Performing Organization Address City/State/Zipcode Phone Number [facility] DEPARTMENT OF [address] [place] [address] PATHOLOGY AND GENOMIC MEDICINE * Echocardiogram complete w contrast and 3D if needed (05/31/2018 8:12 AM CDT) Velocity Ratio 0.81 m/s [facility] (V1/V2) IVS,d 1.14 cm [facility] EF 55.66 % [facility] LVPWD,d 1.06 cm [facility] AoV Mean PG 3.87 mmHg [facility] AV LVOT peak 4.42 mmHg [facility] gradient MV mean 2.29 mmHg [facility] gradient MV valve area p 8.33 cm2 [facility] 1/2 method E wave 91.11 msec [facility] decelartion time LVOT Diam,S 2.02 cm [facility] LVOT area 3.20 cm2 [facility] LVOT Vmax 1.05 m/s [facility] LVOT VTI 0.18 m [facility] AoV Peak PG 6.62 mmHg [facility] MV Peak E [place] 0.87 m/s [facility] MV stenosis 26.42 ms [facility] pressure 1/2 time MV Peak A [place] 0.00 m/s [facility] Ao Root 3.66 cm [facility] Diameter AoV Area, Vmax 2.63 cm2 [facility] AoV Area, VTI 2.81 cm2 [facility] AoV Vmax 1.29 m/s [facility] IVS/LVPW,2D 1.08 [facility] Left Atrium 4.98 cm [facility] Dimension Anterior LV,d 5.50 cm [facility] LV,s 3.89 cm [facility] TR Vpeak 2.19 mm/s [facility] MV E A ratio 680.00 mmHg [facility] TR pk grad 17.74 mmHg [facility] MR peak grad 4.05 mmHg [facility] Ao Root 3.66 cm [facility] Diameter LV SYS VOL 65.45 ml [facility] LV CASEY VOL 147.61 ml [facility] LV SV Teich 2D 82.16 ml [facility] LV Vol s Teich 65.45 ml [facility] PSAX LVOT CO 4.60 l/min [facility] LVOT HR for 79.32 bpm [facility] LVOT CO MV Vmax 1.01 m [facility] MV VTI Tips 0.14 m [facility] AoV Vmn 0.94 [facility] IVS s 2D 1.31 [facility] LV FS Cube 2D 29.34 [facility] LV FS Teich 2D 29.34 [facility] NICK Planimetry 4.13 cm2 [facility] AoV VTI 0.21 m [facility] LV EF,2D 64.72 % [facility] MV AE ratio 0.00 [facility] LVOT Vmn 0.78 [facility] Aov area Vmn 2.68 cm2 [facility] LVOT mean grad 2.63 mmHg [facility] MAX Pred HR 162.27 [facility] 85 of MPHR 137.93 [facility] Calc MPHR 162.27 bpm [facility] IVS pct thck 15.02 % [facility] PLAX LV SV Cube 2D 107.85 ml [facility] LV vol d cube 166.65 ml [facility] 2D LV vol s cube 58.79 ml [facility] 2D LVPW pct thck 25.58 % [facility] PLAX LVPW s PLAX 1.33 cm [facility] MV Decel slope 9.57 m/s2 [facility] Pred Exer Dur 9.06 [facility] R1 Pred METS R1 9.34 [facility] Specimen Narrative Performed At [facility] There is mild left ventricular concentric hypertrophy. Left Ventricular ejection fraction is 50 - 55%. Spectral Doppler shows impaired relaxation pattern of left ventricular diastolic filling. Left atrium size is moderately dilated. Right atrium size upper limits of normal. No pericardial effusion The mitral valve appears thickened. There is moderate sclerosis of the aortic valve leaflets. Performing Organization Address City/[facility] Phone Number [facility] [address] [place] [address] * T3, free (05/31/2018 4:17 AM CDT) T3, free 2.81 2.18 - 3.98 pmol/L [facility] DEPARTMENT OF PATHOLOGY AND GENOMIC MEDICINE Specimen Plasma specimen Performing Organization Address City/[facility] [place] [address] PATHOLOGY AND [facility] MEDICINE * Thyroid stimulating hormone (05/31/2018 4:17 AM CDT) Only the most recent of 2 results within the time period is included. TSH 1.54 0.27 - 4.20 uIU/mL [facility] DEPARTMENT OF PATHOLOGY AND GENOMIC MEDICINE Specimen Plasma specimen Performing Organization Address [facility] Phone Number [address] [place] [address] PATHOLOGY AND [facility] MEDICINE * Hemoglobin A1c (05/31/2018 4:17 AM CDT) Hemoglobin A1C 5.5 4.0 - 6.0 % [facility] DEPARTMENT Comment: OF PATHOLOGY AND GENOMIC MEDICINE Less than 6% - Goal of therapy for Type II Diabetes Less than 7%-Goal of therapy for Type I Diabetes Less than 8%-Accepta ble control for Type I or Type II Diabetes Greater than 8%-Unacceptabl e control; action indicated. ([id number]) Specimen Blood Performing Organization Address City/State/Zipcode Phone Number [facility] DEPARTMENT OF [address] [place] [address] PATHOLOGY AND GENOMIC MEDICINE * Bilirubin direct (05/30/2018 5:04 PM CDT) Bilirubin <0.2 0.0 - 0.4 mg/dL [facility] DEPARTMENT direct OF PATHOLOGY AND GENOMIC MEDICINE Specimen Plasma specimen Performing Organization Address City/State/Zipcode Phone Number [facility] DEPARTMENT [address] [place] [address] PATHOLOGY AND GENOMIC MEDICINE * CRITICAL CARE (05/30/2018 4:33 PM CDT) Narrative Performed At Piter Silva DO 05/30/2018 10:04 PM Critical Care Performed by: PITER SILVA Authorized by: PITER SILVA Critical care provider statement: Critical care time (minutes):60 Critical care end time:05/30/2018 10:04 PM Critical care time was exclusive of:Separately billable procedures and treating other patients Critical care was necessary to treat or prevent imminent or life-threatening deterioration of the following conditions:Cardiac failure Critical care was time spent personally by me on the following activities:Development of treatment plan with patient or surrogate, discussions with primary provider, evaluation of patient's response to treatment, examination of patient, obtaining history from patient or surrogate, re-evaluation of patient's condition, pulse oximetry, ordering and review of radiographic studies, ordering and review of laboratory studies, ordering and performing treatments and interventions, discussions with consultants and review of old charts Marcus 'yes' if you are taking over critical care for this patient from another provider.: no after 04/01/2018 Insurance Type Payer Benefit Subscriber ID Effective Phone Address Plan / Dates Group [facility] MEDICAID [facility] xxxxxxxxx [id number] [employer]+ resent [facility] Guarantor Name Account Relation to Date of Phone Billing Address Type Patient Melvin Chapman Personal/F Self 1960 [address] am[address] (Home) [place] [address] Advance Directives Patient has advance care planning documents, and code status on file. For more i nformation, please contact: Evangelist Nava [address] [place] [address] Date Inactivated Comments Code Status Date Activated 11/02/2017 7:56 PM Full Code 10/28/2017 11:24 PM Code Status decision reached by: Patient
--- OUTSIDE RECORDS SUMMARY | 2019-04-02 10:27 | XMS REPORT ---
[facility] Address Unknown Phone Unavailable Care Team Providers Care Assistant Professor Of English Name Role Phone ROBERT BOONE Unavailable Unavailable Payers Payer Name Policy Type Policy Number Effective Date Expiration Date Problems This patient has no known problems. Allergies, Adverse Reactions, Alerts Allergy Name Allergy Type Status Severity Reaction(s) Onset Date Inactive Date Treating Clinician Comments amiodarone DA Active U 2019-02-17 00:00:00 No Known Allergies DA Active U 2019-02-13 00:00:00 No Known Allergies DA Active U 2017-07-17 00:00:00 Medications This patient has no known medications. Results Test Description Test Time Test Comments Text Results Atomic Results Result Comments - CT UP EXTREM W/O CONT LT 2019-03-07 16:54:00 [facility] 1960 Age[facility]S: 58 / M [address] [facility] Unit #: [id number] Loc: [place] [address] Phys: Saeed Durán MD Acct: [id number] Dis Date: Status: ADM IN PHONE #: [phone] Exam Date: 03/07/2019 1646 FAX #: [phone] Reason: wrist fracture EXAMS: CPT CODE: [id number] CT UP EXTREM W/[place] [address] REASON FOR EXAM: wrist fracture EXAM ORDER DATE: 03/07/2019 12:32 PM Ordering Mook: Saeed Durán MD PROCEDURE: - CT UP EXTREM W/O CONT LT FINDINGS: CT images of the left wrist were obtained without IV contrast at 2.5mm. Reconstructed coronal and sagittal images were also provided. Dose reduction techniques were applied An oblique fracture noted in the distal left radius. The distal radial fragment is displaced dorsally approximately 1 cm and foreshorten approximately 1 cm. The radiocarpal joint space is intact. No evidence of carpal bone fracture. A minimally displaced oblique fracture of the distal left ulna also noted IMPRESSION: Distal left radial fracture, dorsally displaced and minimally angulated (less than 10 degrees). Minimally displaced oblique fracture of the distal left ulna at 7637 Reported and signed by: Aiden Smith M.D. CC: Saeed Durán MD; Robert Boone MD; Juanito Fam MD Technologist:Diego Santillan RT(R),(MR),(CT) CTDI: DLP: Trnscb Date/Time: 03/07/2019 (1653) [email or web address] Orig Print D/T: S: 03/07/2019 (1656) CTDI: DLP: PAGE 1 Signed Report - XR FOREARM 2 VIEWS LT 2019-03-06 15:41:00 FAX: Robert Boone MD [phone] [place]: St: [facility] FAX: Juanito Lopez MD [phone] Name: PAOLO MCDOWELL [facility] : 1960 Age/S: 58/M [address] [facility] Unit #: [id number] Loc: [address] [place] [address] Phys: Robert Boone MD Acct: [id number] Dis Date: Status: ADM IN PHONE #: [phone] Exam Date: 03/06/2019 1534 FAX #: [phone] Reason: LEFT WRIST FRACTURE EXAMS: CPT CODE: [id number] XR FORE[place] [address] [place] [address] REASON FOR EXAM: LEFT WRIST FRACTURE EXAM ORDER DATE: 03/06/2019 12:00 AM Ordering MJasminDJasmin: Robert Boone MD PROCEDURE: - XR FOREARM 2 VIEWS LT FINDINGS: 2 views of the left forearm were obtained. Again seen is the deformity of the distal left radius consistent with the known comminuted intra-articular distal left radial fracture. The examination is suboptimal due to overlying casting material. There is slight lateral displacement, minimal impaction, and dependently dorsal tilting of the distal radial fragments. IMPRESSION: Comminuted intra-articular distal left radial fracture at 4260 Reported and signed by: Aiden Smith M.D. CC: Robert Boone MD; Juanito Fam MD Technologist: REI DIALLO [facility] Date/Time/By: 03/06/2019 (5776) : By: Brady BELCHERVTL Orig Print D/T: S: 03/06/2019 (9775) PAGE 1 Signed Report - XR WRIST 2 VIEWS LT 2019-03-06 15:39:00 FAX: Robert Boone MD [phone] [place]: St: [facility] FAX: Juanito Lopez MD [phone] Name: PAOLO MCDOWELL [facility] : 1960 Age/S: 58/M [address] [facility] Unit #: [id number] Loc: V.[facility] [place] [address] Phys: Robert Boone MD Acct: [id number] Dis Date: Status: ADM IN PHONE #: [phone] Exam Date: 03/06/2019 1534 FAX #: [phone] Reason: LEFT WRIST FRACTURE EXAMS: CPT CODE: [id number] XR WRIST [address] [place] [address] REASON FOR EXAM: LEFT WRIST FRACTURE EXAM ORDER DATE: 03/06/2019 12:00 AM Ordering M.DJasmin: Robert Boone MD PROCEDURE: - XR WRIST 2 VIEWS LT FINDINGS: 2 views of the left wrist were obtained. Overlying casting material noted. A comminuted distal left radial fracture with 10 degree dorsal tilting of the radiocarpal joint space IMPRESSION: Stable appearance of the known comminuted intra-articular dorsally tilted distal left radial fracture at 1530 Reported and signed by: Aiden Smith M.D. CC: Robert Boone MD; Juanito Fam MD Technologist: REI DIALLO [facility] Date/Time/By: 03/06/2019 (4456) : By: [email or web address].VTL Orig Print D/T: S: 03/06/2019 (3274) PAGE 1 Signed Report BASIC METABOLIC PANEL 2019-03-06 07:28:00 SODIUM (test code=NA) 142 mmol/L 136-145 POTASSIUM (test code=K) 3.8 mmol/L 3.5-5.1 CHLORIDE (test code=CL) 108.0 mmol/L 98-107 CARBON DIOXIDE (test code=CO2) 29.0 mmol/L 21-32 ANION GAP (test code=GAP) 8.8 10-20 GLUCOSE (test code=GLU) 94 mg/dL 74-106 BLOOD UREA NITROGEN (test code=BUN) 11 mg/dL 7-18 GLOMERULAR FILTRATION RATE (test code=GFR) > 60 mL/min >=60 Estimated GFR by using Modified MDRD formula.Chronic kidney disease is defined as either kidney damageor GFR <60 mL/min/1.73 m2 for >3 months. CREATININE (test code=CREAT) 0.80 mg/dL 0.7-1.3 BUN/CREATININE RATIO (test code=BUN/CREA) 13.8 10-20 CALCIUM (test code=CA) 8.6 mg/dL 8.5-10.1 [id number] 07:28:00* Test Item Value Reference Range Comments PHOSPHORUS (test code=PHOS) 3.0 mg/dL 2.5-4.9 [id number] 07:28:00* Test Item Value Reference Range Comments MAGNESIUM (test code=MAG) 1.9 mg/dL 1.8-2.4 BASIC METABOLIC [id number] 07:24:00* Test Item Value Reference Range Comments SODIUM (test code=NA) 142 mmol/L 136-145 POTASSIUM (test code=K) 3.8 mmol/L 3.5-5.1 CHLORIDE (test code=CL) 108.0 mmol/L 98-107 CARBON DIOXIDE (test code=CO2) mmol/L 21-32 ANION GAP (test code=GAP) 10-20 GLUCOSE (test code=GLU) mg/dL 74-106 BLOOD UREA NITROGEN (test code=BUN) mg/dL 7-18 GLOMERULAR FILTRATION RATE (test code=GFR) mL/min >=60 CREATININE (test code=CREAT) mg/dL 0.7-1.3 BUN/CREATININE RATIO (test code=BUN/CREA) 10-20 CALCIUM (test code=CA) mg/dL 8.5-10.1 [id number] 07:24:00* Test Item Value Reference Range Comments PHOSPHORUS (test code=PHOS) mg/dL 2.5-4.9 [id number] 07:24:00* Test Item Value Reference Range Comments MAGNESIUM (test code=MAG) mg/dL 1.8-2.4 CBC W/AUTO [id number] 07:03:00* Test Item Value Reference Range Comments WHITE BLOOD CELL (test code=WBC) 6.5 K/mm3 4.5-12.5 RED BLOOD CELL (test code=RBC) 3.84 mill/mm3 4.0-5.8 HEMOGLOBIN (test code=HGB) 13.4 gram/dL 13.0-17.5 HEMATOCRIT (test code=HCT) 39.6 % 42.0-52.0 MEAN CELL VOLUME (test code=MCV) 103.1 fL 80-98 MEAN CELL HGB (test code=MCH) 34.9 picogram 27.0-33.0 MEAN CELL HGB CONCETRATION (test code=MCHC) 33.8 gram/dL 33.0-36.0 RED CELL DISTRIBUTION WIDTH (test code=RDW) 13.3 % 11.6-16.2 RED CELL DISTRIBUTION WIDTH SD (test code=RDW-SD) 50.5 fL 37.0-51.0 PLATELET COUNT (test code=PLT) 191 K/mm3 150-450 MEAN PLATELET VOLUME (test code=MPV) 9.8 fL 6.7-11.0 NEUTROPHIL % (test code=NT%) 61.9 % 39.0-69.0 IMMATURE GRANULOCYTE % (test code=IG%) 1.1 % 0.0-5.0 LYMPHOCYTE % (test code=LY%) 25.0 % 25.0-55.0 MONOCYTE % (test code=MO%) 10.4 % 0.0-10.0 EOSINOPHIL % (test code=EO%) 1.1 % 0.0-5.0 BASOPHIL % (test code=BA%) 0.5 % 0.0-1.0 NUCLEATED RBC % (test code=NRBC%) 0.0 % 0-0 NEUTROPHIL # (test code=NT#) 4.00 K/mm3 1.8-7.7 IMMATURE GRANULOCYTE # (test code=IG#) 0.07 x10 3/uL 0-0.03 LYMPHOCYTE # (test code=LY#) 1.61 K/mm3 1.0-5.0 MONOCYTE # (test code=MO#) 0.67 K/mm3 0-0.8 EOSINOPHIL # (test code=EO#) 0.07 K/mm3 0.0-0.5 BASOPHIL # (test code=BA#) 0.03 K/mm3 0.0-0.2 NUCLEATED RBC # (test code=NRBC#) 0.00 K/mm3 0.0-0.1 MANUAL DIFF REQUIRED (test code=MDIFF) NO CBC W/AUTO [id number] 06:55:00* Test Item Value Reference Range Comments WHITE BLOOD CELL (test code=WBC) K/mm3 4.5-12.5 RED BLOOD CELL (test code=RBC) mill/mm3 4.0-5.8 HEMOGLOBIN (test code=HGB) 13.4 gram/dL 13.0-17.5 HEMATOCRIT (test code=HCT) % 42.0-52.0 MEAN CELL VOLUME (test code=MCV) fL 80-98 MEAN CELL HGB (test code=MCH) picogram 27.0-33.0 MEAN CELL HGB CONCETRATION (test code=MCHC) gram/dL 33.0-36.0 RED CELL DISTRIBUTION WIDTH (test code=RDW) % 11.6-16.2 RED CELL DISTRIBUTION WIDTH SD (test code=RDW-SD) fL 37.0-51.0 PLATELET COUNT (test code=PLT) K/mm3 150-450 MEAN PLATELET VOLUME (test code=MPV) fL 6.7-11.0 NEUTROPHIL % (test code=NT%) % 39.0-69.0 IMMATURE GRANULOCYTE % (test code=IG%) % 0.0-5.0 LYMPHOCYTE % (test code=LY%) % 25.0-55.0 MONOCYTE % (test code=MO%) % 0.0-10.0 EOSINOPHIL % (test code=EO%) % 0.0-5.0 BASOPHIL % (test code=BA%) % 0.0-1.0 NEUTROPHIL # (test code=NT#) K/mm3 1.8-7.7 LYMPHOCYTE # (test code=LY#) K/mm3 1.0-5.0 MONOCYTE # (test code=MO#) K/mm3 0-0.8 EOSINOPHIL # (test code=EO#) K/mm3 0.0-0.5 BASOPHIL # (test code=BA#) K/mm3 0.0-0.2 ACUTE HEPATITIS [id number] 05:10:00* Test Item Value Reference Range Comments AB HEPATITIS A IGM (test code=HAVMAB) Negative Negative AG HEPAT B SURF (test code=HBSAG) Negative Negative HEPATITIS B CORE ANTIBODY,IGM (test code=HBCMAB) Negative Negative AB HEPATITIS C (test code=HCVAB) <0.1 0.0-0.9 INFCE Result Units: s/co ratio Negative: < 0.8 Indeterminate: 0.8 - 0.9 Positive: > 0.9 The CDC recommends that a positive HCV antibody result be followed up with a HCV Nucleic Acid Amplification test (612709).Performed At: [facility] [id number] Kyle L MD Ph:[phone] BASIC METABOLIC [id number] 06:47:00* Test Item Value Reference Range Comments SODIUM (test code=NA) 141 mmol/L 136-145 POTASSIUM (test code=K) 3.4 mmol/L 3.5-5.1 CHLORIDE (test code=CL) 108.0 mmol/L 98-107 CARBON DIOXIDE (test code=CO2) 27.0 mmol/L 21-32 ANION GAP (test code=GAP) 9.4 10-20 GLUCOSE (test code=GLU) 131 mg/dL 74-106 BLOOD UREA NITROGEN (test code=BUN) 7 mg/dL 7-18 GLOMERULAR FILTRATION RATE (test code=GFR) > 60 mL/min >=60 Estimated GFR by using Modified MDRD formula.Chronic kidney disease is defined as either kidney damageor GFR <60 mL/min/1.73 m2 for >3 months. CREATININE (test code=CREAT) 0.80 mg/dL 0.7-1.3 BUN/CREATININE RATIO (test code=BUN/CREA) 8.8 10-20 CALCIUM (test code=CA) 8.9 mg/dL 8.5-10.1 [id number] 06:47:00* Test Item Value Reference Range Comments PHOSPHORUS (test code=PHOS) 2.9 mg/dL 2.5-4.9 [id number] 06:47:00* Test Item Value Reference Range Comments MAGNESIUM (test code=MAG) 2.0 mg/dL 1.8-2.4 CBC W/AUTO [id number] 06:46:00* Test Item Value Reference Range Comments WHITE BLOOD CELL (test code=WBC) 7.5 K/mm3 4.5-12.5 RED BLOOD CELL (test code=RBC) 4.16 mill/mm3 4.0-5.8 HEMOGLOBIN (test code=HGB) 14.1 gram/dL 13.0-17.5 HEMATOCRIT (test code=HCT) 42.6 % 42.0-52.0 MEAN CELL VOLUME (test code=MCV) 102.4 fL 80-98 MEAN CELL HGB (test code=MCH) 33.9 picogram 27.0-33.0 MEAN CELL HGB CONCETRATION (test code=MCHC) 33.1 gram/dL 33.0-36.0 RED CELL DISTRIBUTION WIDTH (test code=RDW) 13.0 % 11.6-16.2 RED CELL DISTRIBUTION WIDTH SD (test code=RDW-SD) 48.2 fL 37.0-51.0 PLATELET COUNT (test code=PLT) 237 K/mm3 150-450 MEAN PLATELET VOLUME (test code=MPV) 10.1 fL 6.7-11.0 NEUTROPHIL % (test code=NT%) 70.7 % 39.0-69.0 IMMATURE GRANULOCYTE % (test code=IG%) 0.8 % 0.0-5.0 LYMPHOCYTE % (test code=LY%) 18.7 % 25.0-55.0 MONOCYTE % (test code=MO%) 8.9 % 0.0-10.0 EOSINOPHIL % (test code=EO%) 0.5 % 0.0-5.0 BASOPHIL % (test code=BA%) 0.4 % 0.0-1.0 NUCLEATED RBC % (test code=NRBC%) 0.0 % 0-0 NEUTROPHIL # (test code=NT#) 5.30 K/mm3 1.8-7.7 IMMATURE GRANULOCYTE # (test code=IG#) 0.06 x10 3/uL 0-0.03 LYMPHOCYTE # (test code=LY#) 1.40 K/mm3 1.0-5.0 MONOCYTE # (test code=MO#) 0.67 K/mm3 0-0.8 EOSINOPHIL # (test code=EO#) 0.04 K/mm3 0.0-0.5 BASOPHIL # (test code=BA#) 0.03 K/mm3 0.0-0.2 NUCLEATED RBC # (test code=NRBC#) 0.00 K/mm3 0.0-0.1 MANUAL DIFF REQUIRED (test code=MDIFF) NO BASIC METABOLIC [id number] 06:44:00* Test Item Value Reference Range Comments SODIUM (test code=NA) 141 mmol/L 136-145 POTASSIUM (test code=K) 3.4 mmol/L 3.5-5.1 CHLORIDE (test code=CL) 108.0 mmol/L 98-107 CARBON DIOXIDE (test code=CO2) mmol/L 21-32 ANION GAP (test code=GAP) 10-20 GLUCOSE (test code=GLU) mg/dL 74-106 BLOOD UREA NITROGEN (test code=BUN) mg/dL 7-18 GLOMERULAR FILTRATION RATE (test code=GFR) mL/min >=60 CREATININE (test code=CREAT) mg/dL 0.7-1.3 BUN/CREATININE RATIO (test code=BUN/CREA) 10-20 CALCIUM (test code=CA) mg/dL 8.5-10.1 [id number] 06:44:00* Test Item Value Reference Range Comments PHOSPHORUS (test code=PHOS) mg/dL 2.5-4.9 [id number] 06:44:00* Test Item Value Reference Range Comments MAGNESIUM (test code=MAG) mg/dL 1.8-2.4 - XR ABDOMEN AP 1 [id number] 17:22:00 FAX: Robert Boone MD [phone] [place]: St: ADM FAX: Hua Singh MD [phone] FAX: Juanito Lopez MD [phone] Name: PAOLO MCDOWELL [facility] : 1960 Age/S: 58/M [address] [facility] Unit #: [id number] Loc: [address] [address] Phys: Hua Singh MD Acct: [id number] Dis Date: Status: ADM IN ONE #: [phone] Exam Date: 03/04/2019 1649 FAX #: [phone] Reason: vomiting EXAMS: CPT CODE: [id number] XR ABDOMEN AP 1 V 19575 EXAM: Abdomen, 3 views; INFORMATION: Hypertension, hypokalemia, vomiting; IMPRESSION: 1. Unremarkable bowel gas pattern; no evidence of obstruction or other acute abnormalities. 2. Multiple pelvic p hleboliths; no other abnormal calcifications. Electronicall y Signed by Mook Nicholson on 03/04/2019 at 17 22 Reported and signed by: Jamaal Nicholson M.D. CC: Robert Boone MD; Hua Singh MD; Juanito Fam MD Technologist: Veronica Davies RT(R); SALUD SON RT(R) Trnscrd Date/Time/By: 03/04/2019 (7736) : By: LilianaGRW Orig Print D /T: S: 03/04/2019 (4610) PAGE 1 S igned Report [id number] 15:16:00* Test Item Value Reference Range Comments GLUBED (test code=GLUBED) 126 mg/dL 74-106 Performed by certified launch operator at [facility] [id number] 11:41:00* Test Item Value Reference Range Comments GLYCOSYLATED HEMOGLOBIN (HA1C) (test code=GLYHGB) 5.9 % HbA1 4.8-6.0 ESTIMATED AVERAGE GLUCOSE (test code=EAG) 123 MG/DL LIPID PROFILE (CORONARY RISK)2019-03-04 11:39:00* Test Item Value Reference Range Comments TRIGLYCERIDES (test code=TRIG) 132 mg/dL 20-150 CHOLESTEROL (test code=CHOL) 178 mg/dL 0-200 CHOLESTEROL/HDL RATIO (test code=CHOLHDL) 4.0 RATIO 0-4.9 RISK ASSOCIATED WITH CHOL/HDL RATIOS: Risk Male Female1/2 AVERAGE 3.43 3.27AVERAGE 4.97 4.442X AVERAGE 9.55 7.053X AVERAGE 23.39 11.04 REFERENCE VALUE IS RELATED TO RISK LEVELS ASRECOMMENDED BY THE LESLY. HEART, LUNG, AND BLOOD INST. HDL CHOLESTEROL (test code=HDL) 43 mg/dL 40-60 LIPOPROTEIN LDL (test code=LDL) 131 mg/dL 100-129 RN PERSONNEL, CONTACT PHYSICIAN IMMEDIATELY IF THIS IS A STROKE, AMI OR CAROTID STENOSIS PATIENT WHEN THE LDL >100 (1ST OCCURENCE, THIS ADMISSION) Reference Interval: mg/dL mmol/L Optimal <100 <2.6Near/above optimal 100-129 2.6- 3.3Borderline High 130-159 3.4-4.1High 160-189 4.1-4.9Very High >=190 >=4.9=========This LDL result is a direct measurement.========= [id number] 10:26:00* Test Item Value Reference Range Comments GLUBED (test code=GLUBED) 167 mg/dL 74-106 Performed by certified launch operator at [facility] [id number] 08:30:00* Test Item Value Reference Range Comments AMMONIA (test code=AMM) 26 umol/L 11-32 [id number] 07:51:00* Test Item Value Reference Range Comments GLUBED (test code=GLUBED) 234 mg/dL 74-106 Performed by certified launch operator at [facility] VITAMIN [id number] 07:12:00* Test Item Value Reference Range Comments VITAMIN B12 (test code=VITB12) 471 pg/mL 193-986 FOLIC [id number] 07:12:00* Test Item Value Reference Range Comments FOLIC ACID (test code=FOL) 5.0 ng/mL 3.10-17.50 CBC W/AUTO [id number] 06:48:00* Test Item Value Reference Range Comments WHITE BLOOD CELL (test code=WBC) 11.1 K/mm3 4.5-12.5 RED BLOOD CELL (test code=RBC) 4.33 mill/mm3 4.0-5.8 HEMOGLOBIN (test code=HGB) 14.6 gram/dL 13.0-17.5 HEMATOCRIT (test code=HCT) 43.8 % 42.0-52.0 MEAN CELL VOLUME (test code=MCV) 101.2 fL 80-98 MEAN CELL HGB (test code=MCH) 33.7 picogram 27.0-33.0 MEAN CELL HGB CONCETRATION (test code=MCHC) 33.3 gram/dL 33.0-36.0 RED CELL DISTRIBUTION WIDTH (test code=RDW) 13.0 % 11.6-16.2 RED CELL DISTRIBUTION WIDTH SD (test code=RDW-SD) 48.5 fL 37.0-51.0 PLATELET COUNT (test code=PLT) 278 K/mm3 150-450 MEAN PLATELET VOLUME (test code=MPV) 10.2 fL 6.7-11.0 NEUTROPHIL % (test code=NT%) 76.0 % 39.0-69.0 IMMATURE GRANULOCYTE % (test code=IG%) 1.1 % 0.0-5.0 LYMPHOCYTE % (test code=LY%) 11.3 % 25.0-55.0 MONOCYTE % (test code=MO%) 11.1 % 0.0-10.0 EOSINOPHIL % (test code=EO%) 0.1 % 0.0-5.0 BASOPHIL % (test code=BA%) 0.4 % 0.0-1.0 NUCLEATED RBC % (test code=NRBC%) 0.0 % 0-0 NEUTROPHIL # (test code=NT#) 8.47 K/mm3 1.8-7.7 IMMATURE GRANULOCYTE # (test code=IG#) 0.12 x10 3/uL 0-0.03 LYMPHOCYTE # (test code=LY#) 1.26 K/mm3 1.0-5.0 MONOCYTE # (test code=MO#) 1.23 K/mm3 0-0.8 EOSINOPHIL # (test code=EO#) 0.01 K/mm3 0.0-0.5 BASOPHIL # (test code=BA#) 0.04 K/mm3 0.0-0.2 NUCLEATED RBC # (test code=NRBC#) 0.00 K/mm3 0.0-0.1 MANUAL DIFF REQUIRED (test code=MDIFF) NO BASIC METABOLIC [id number] 06:44:00* Test Item Value Reference Range Comments SODIUM (test code=NA) 136 mmol/L 136-145 POTASSIUM (test code=K) 3.5 mmol/L 3.5-5.1 CHLORIDE (test code=CL) 102.0 mmol/L 98-107 CARBON DIOXIDE (test code=CO2) 26.0 mmol/L 21-32 ANION GAP (test code=GAP) 11.5 10-20 GLUCOSE (test code=GLU) 272 mg/dL 74-106 BLOOD UREA NITROGEN (test code=BUN) 9 mg/dL 7-18 GLOMERULAR FILTRATION RATE (test code=GFR) 52 mL/min >=60 Estimated GFR by using Modified MDRD formula.Chronic kidney disease is defined as either kidney damageor GFR <60 mL/min/1.73 m2 for >3 months. CREATININE (test code=CREAT) 1.40 mg/dL 0.7-1.3 BUN/CREATININE RATIO (test code=BUN/CREA) 6.4 10-20 CALCIUM (test code=CA) 8.8 mg/dL 8.5-10.1 [id number] 06:44:00* Test Item Value Reference Range Comments MAGNESIUM (test code=MAG) 2.1 mg/dL 1.8-2.4 CALCIUM [id number] 06:44:00* Test Item Value Reference Range Comments CALCIUM IONIZED (test code=FERNANDO) 1.24 mmol/L 1.12-1.32 CBC W/AUTO [id number] 06:41:00* Test Item Value Reference Range Comments WHITE BLOOD CELL (test code=WBC) K/mm3 4.5-12.5 RED BLOOD CELL (test code=RBC) mill/mm3 4.0-5.8 HEMOGLOBIN (test code=HGB) 14.6 gram/dL 13.0-17.5 HEMATOCRIT (test code=HCT) 43.8 % 42.0-52.0 MEAN CELL VOLUME (test code=MCV) fL 80-98 MEAN CELL HGB (test code=MCH) picogram 27.0-33.0 MEAN CELL HGB CONCETRATION (test code=MCHC) gram/dL 33.0-36.0 RED CELL DISTRIBUTION WIDTH (test code=RDW) % 11.6-16.2 RED CELL DISTRIBUTION WIDTH SD (test code=RDW-SD) fL 37.0-51.0 PLATELET COUNT (test code=PLT) K/mm3 150-450 MEAN PLATELET VOLUME (test code=MPV) fL 6.7-11.0 NEUTROPHIL % (test code=NT%) % 39.0-69.0 IMMATURE GRANULOCYTE % (test code=IG%) % 0.0-5.0 LYMPHOCYTE % (test code=LY%) % 25.0-55.0 MONOCYTE % (test code=MO%) % 0.0-10.0 EOSINOPHIL % (test code=EO%) % 0.0-5.0 BASOPHIL % (test code=BA%) % 0.0-1.0 NEUTROPHIL # (test code=NT#) K/mm3 1.8-7.7 LYMPHOCYTE # (test code=LY#) K/mm3 1.0-5.0 MONOCYTE # (test code=MO#) K/mm3 0-0.8 EOSINOPHIL # (test code=EO#) K/mm3 0.0-0.5 BASOPHIL # (test code=BA#) K/mm3 0.0-0.2 BASIC METABOLIC [id number] 06:36:00* Test Item Value Reference Range Comments SODIUM (test code=NA) 136 mmol/L 136-145 POTASSIUM (test code=K) 3.5 mmol/L 3.5-5.1 CHLORIDE (test code=CL) 102.0 mmol/L 98-107 CARBON DIOXIDE (test code=CO2) mmol/L 21-32 ANION GAP (test code=GAP) 10-20 GLUCOSE (test code=GLU) mg/dL 74-106 BLOOD UREA NITROGEN (test code=BUN) mg/dL 7-18 GLOMERULAR FILTRATION RATE (test code=GFR) mL/min >=60 CREATININE (test code=CREAT) mg/dL 0.7-1.3 BUN/CREATININE RATIO (test code=BUN/CREA) 10-20 CALCIUM (test code=CA) mg/dL 8.5-10.1 [id number] 06:36:00* Test Item Value Reference Range Comments MAGNESIUM (test code=MAG) mg/dL 1.8-2.4 CALCIUM [id number] 06:36:00* Test Item Value Reference Range Comments CALCIUM IONIZED (test code=FERNANDO) 1.24 mmol/L 1.12-1.32 BASIC METABOLIC [id number] 06:35:00* Test Item Value Reference Range Comments SODIUM (test code=NA) 136 mmol/L 136-145 POTASSIUM (test code=K) 3.5 mmol/L 3.5-5.1 CHLORIDE (test code=CL) 102.0 mmol/L 98-107 CARBON DIOXIDE (test code=CO2) mmol/L 21-32 ANION GAP (test code=GAP) 10-20 GLUCOSE (test code=GLU) mg/dL 74-106 BLOOD UREA NITROGEN (test code=BUN) mg/dL 7-18 GLOMERULAR FILTRATION RATE (test code=GFR) mL/min >=60 CREATININE (test code=CREAT) mg/dL 0.7-1.3 BUN/CREATININE RATIO (test code=BUN/CREA) 10-20 CALCIUM (test code=CA) mg/dL 8.5-10.1 [id number] 06:35:00* Test Item Value Reference Range Comments MAGNESIUM (test code=MAG) mg/dL 1.8-2.4 CALCIUM [id number] 06:35:00* Test Item Value Reference Range Comments CALCIUM IONIZED (test code=FERNANDO) mmol/L 1.12-1.32 [id number] 05:59:00* Test Item Value Reference Range Comments GLUBED (test code=GLUBED) 261 mg/dL 74-106 Performed by certified launch operator at [facility] [id number] 05:24:00* Test Item Value Reference Range Comments GLUBED (test code=GLUBED) 245 mg/dL 74-106 Performed by certified launch operator at [facility] [id number] 02:45:00* Test Item Value Reference Range Comments GLUBED (test code=GLUBED) 275 mg/dL 74-106 Performed by certified launch operator at [facility] [id number] 02:45:00* Test Item Value Reference Range Comments GLUBED (test code=GLUBED) 259 mg/dL 74-106 Performed by certified launch operator at [facility] [id number] 02:45:00* Test Item Value Reference Range Comments GLUBED (test code=GLUBED) 248 mg/dL 74-106 Performed by certified launch operator at [facility] [id number] 02:45:00* Test Item Value Reference Range Comments GLUBED (test code=GLUBED) 222 mg/dL 74-106 Performed by certified launch operator at [facility] BASIC METABOLIC [id number] 02:00:00* Test Item Value Reference Range Comments SODIUM (test code=NA) 137 mmol/L 136-145 POTASSIUM (test code=K) 3.5 mmol/L 3.5-5.1 CHLORIDE (test code=CL) 104.0 mmol/L 98-107 CARBON DIOXIDE (test code=CO2) 23.0 mmol/L 21-32 ANION GAP (test code=GAP) 13.5 10-20 GLUCOSE (test code=GLU) 275 mg/dL 74-106 BLOOD UREA NITROGEN (test code=BUN) 9 mg/dL 7-18 GLOMERULAR FILTRATION RATE (test code=GFR) 45 mL/min >=60 Estimated GFR by using Modified MDRD formula.Chronic kidney disease is defined as either kidney damageor GFR <60 mL/min/1.73 m2 for >3 months. CREATININE (test code=CREAT) 1.60 mg/dL 0.7-1.3 BUN/CREATININE RATIO (test code=BUN/CREA) 5.6 10-20 CALCIUM (test code=CA) 8.3 mg/dL 8.5-10.1 [id number] 02:00:00* Test Item Value Reference Range Comments MAGNESIUM (test code=MAG) 1.3 mg/dL 1.8-2.4 CALCIUM [id number] 02:00:00* Test Item Value Reference Range Comments CALCIUM IONIZED (test code=FERNANDO) 1.18 mmol/L 1.12-1.32 BASIC METABOLIC [id number] 01:59:00* Test Item Value Reference Range Comments SODIUM (test code=NA) 137 mmol/L 136-145 POTASSIUM (test code=K) 3.5 mmol/L 3.5-5.1 CHLORIDE (test code=CL) 104.0 mmol/L 98-107 CARBON DIOXIDE (test code=CO2) mmol/L 21-32 ANION GAP (test code=GAP) 10-20 GLUCOSE (test code=GLU) mg/dL 74-106 BLOOD UREA NITROGEN (test code=BUN) mg/dL 7-18 GLOMERULAR FILTRATION RATE (test code=GFR) mL/min >=60 CREATININE (test code=CREAT) mg/dL 0.7-1.3 BUN/CREATININE RATIO (test code=BUN/CREA) 10-20 CALCIUM (test code=CA) mg/dL 8.5-10.1 [id number] 01:59:00* Test Item Value Reference Range Comments MAGNESIUM (test code=MAG) mg/dL 1.8-2.4 CALCIUM [id number] 01:59:00* Test Item Value Reference Range Comments CALCIUM IONIZED (test code=FERNANDO) 1.18 mmol/L 1.12-1.32 BASIC METABOLIC [id number] 01:53:00* Test Item Value Reference Range Comments SODIUM (test code=NA) 137 mmol/L 136-145 POTASSIUM (test code=K) 3.5 mmol/L 3.5-5.1 CHLORIDE (test code=CL) 104.0 mmol/L 98-107 CARBON DIOXIDE (test code=CO2) mmol/L 21-32 ANION GAP (test code=GAP) 10-20 GLUCOSE (test code=GLU) mg/dL 74-106 BLOOD UREA NITROGEN (test code=BUN) mg/dL 7-18 GLOMERULAR FILTRATION RATE (test code=GFR) mL/min >=60 CREATININE (test code=CREAT) mg/dL 0.7-1.3 BUN/CREATININE RATIO (test code=BUN/CREA) 10-20 CALCIUM (test code=CA) mg/dL 8.5-10.1 [id number] 01:53:00* Test Item Value Reference Range Comments MAGNESIUM (test code=MAG) mg/dL 1.8-2.4 CALCIUM [id number] 01:53:00* Test Item Value Reference Range Comments CALCIUM IONIZED (test code=FERNANDO) mmol/L 1.12-1.32 BASIC METABOLIC [id number] 00:32:00* Test Item Value Reference Range Comments SODIUM (test code=NA) 139 mmol/L 136-145 POTASSIUM (test code=K) 3.2 mmol/L 3.5-5.1 CHLORIDE (test code=CL) 104.0 mmol/L 98-107 CARBON DIOXIDE (test code=CO2) 24.0 mmol/L 21-32 ANION GAP (test code=GAP) 14.2 10-20 GLUCOSE (test code=GLU) 224 mg/dL 74-106 BLOOD UREA NITROGEN (test code=BUN) 9 mg/dL 7-18 GLOMERULAR FILTRATION RATE (test code=GFR) 48 mL/min >=60 Estimated GFR by using Modified MDRD formula.Chronic kidney disease is defined as either kidney damageor GFR <60 mL/min/1.73 m2 for >3 months. CREATININE (test code=CREAT) 1.50 mg/dL 0.7-1.3 BUN/CREATININE RATIO (test code=BUN/CREA) 6.0 10-20 CALCIUM (test code=CA) 8.4 mg/dL 8.5-10.1 [id number] 00:32:00* Test Item Value Reference Range Comments MAGNESIUM (test code=MAG) 1.3 mg/dL 1.8-2.4 CALCIUM [id number] 00:32:00* Test Item Value Reference Range Comments CALCIUM IONIZED (test code=FERNANDO) 1.23 mmol/L 1.12-1.32 BASIC METABOLIC [id number] 00:27:00* Test Item Value Reference Range Comments SODIUM (test code=NA) 139 mmol/L 136-145 POTASSIUM (test code=K) 3.2 mmol/L 3.5-5.1 CHLORIDE (test code=CL) 104.0 mmol/L 98-107 CARBON DIOXIDE (test code=CO2) 24.0 mmol/L 21-32 ANION GAP (test code=GAP) 14.2 10-20 GLUCOSE (test code=GLU) 224 mg/dL 74-106 BLOOD UREA NITROGEN (test code=BUN) 9 mg/dL 7-18 GLOMERULAR FILTRATION RATE (test code=GFR) 48 mL/min >=60 Estimated GFR by using Modified MDRD formula.Chronic kidney disease is defined as either kidney damageor GFR <60 mL/min/1.73 m2 for >3 months. CREATININE (test code=CREAT) 1.50 mg/dL 0.7-1.3 BUN/CREATININE RATIO (test code=BUN/CREA) 6.0 10-20 CALCIUM (test code=CA) 8.4 mg/dL 8.5-10.1 [id number] 00:27:00* Test Item Value Reference Range Comments MAGNESIUM (test code=MAG) 1.3 mg/dL 1.8-2.4 CALCIUM [id number] 00:27:00* Test Item Value Reference Range Comments CALCIUM IONIZED (test code=FERNANDO) mmol/L 1.12-1.32 BASIC METABOLIC [id number] 00:22:00* Test Item Value Reference Range Comments SODIUM (test code=NA) 139 mmol/L 136-145 POTASSIUM (test code=K) 3.2 mmol/L 3.5-5.1 CHLORIDE (test code=CL) 104.0 mmol/L 98-107 CARBON DIOXIDE (test code=CO2) mmol/L 21-32 ANION GAP (test code=GAP) 10-20 GLUCOSE (test code=GLU) mg/dL 74-106 BLOOD UREA NITROGEN (test code=BUN) mg/dL 7-18 GLOMERULAR FILTRATION RATE (test code=GFR) mL/min >=60 CREATININE (test code=CREAT) mg/dL 0.7-1.3 BUN/CREATININE RATIO (test code=BUN/CREA) 10-20 CALCIUM (test code=CA) mg/dL 8.5-10.1 [id number] 00:22:00* Test Item Value Reference Range Comments MAGNESIUM (test code=MAG) mg/dL 1.8-2.4 CALCIUM [id number] 00:22:00* Test Item Value Reference Range Comments CALCIUM IONIZED (test code=FERNANDO) mmol/L 1.12-1.32 PROTHROMBIN [id number] 00:20:00* Test Item Value Reference Range Comments PROTHROMBIN TIME PATIENT (test code=PTP) 14.2 seconds 9.0-14.0 INTERNATIONAL NORMAL RATIO (test code=INR) 1.2 0.8-1.2 The therapeutic range for oral anticoagulant therapy formost indications is an international normalized ratio (INR)of between 2.0 and 3.0. The recommended therapeutic INRrange for various clinical situations is listed below: Clinical Situation INR range Pulmonary e mbolism treatment (2.0-3.0)Venous thrombosis treatmentVenous thrombosis prophylaxis (high risk surgery)Prevention of systemic embolism from: Acute myocardial infarction Valvular heart disease Atrial fibrillation Mechanical prosthetic heart valves (2.5-3.5) IS PATIENT ON ANTICOAGULANTS? NTHROMBOPLASTIN TIME [id number] 00:20:00* Test Item Value Reference Range Comments THROMBOPLASTIN TIME PARTIAL (test code=PTT) 34.2 seconds 25.0-36.5 IS PATIENT ON ANTICOAGULANTS? NBASIC METABOLIC [id number] 23:50:00* Test Item Value Reference Range Comments SODIUM (test code=NA) 140 mmol/L 136-145 POTASSIUM (test code=K) 3.1 mmol/L 3.5-5.1 CHLORIDE (test code=CL) 105.0 mmol/L 98-107 CARBON DIOXIDE (test code=CO2) 23.0 mmol/L 21-32 ANION GAP (test code=GAP) 15.1 10-20 GLUCOSE (test code=GLU) 177 mg/dL 74-106 BLOOD UREA NITROGEN (test code=BUN) 10 mg/dL 7-18 GLOMERULAR FILTRATION RATE (test code=GFR) 45 mL/min >=60 Estimated GFR by using Modified MDRD formula.Chronic kidney disease is defined as either kidney damageor GFR <60 mL/min/1.73 m2 for >3 months. CREATININE (test code=CREAT) 1.60 mg/dL 0.7-1.3 BUN/CREATININE RATIO (test code=BUN/CREA) 6.3 10-20 CALCIUM (test code=CA) 8.1 mg/dL 8.5-10.1 [id number] 23:50:00* Test Item Value Reference Range Comments MAGNESIUM (test code=MAG) 1.4 mg/dL 1.8-2.4 CALCIUM [id number] 23:50:00* Test Item Value Reference Range Comments CALCIUM IONIZED (test code=FERNANDO) 1.19 mmol/L 1.12-1.32 BASIC METABOLIC [id number] 23:33:00* Test Item Value Reference Range Comments SODIUM (test code=NA) 140 mmol/L 136-145 POTASSIUM (test code=K) 3.1 mmol/L 3.5-5.1 CHLORIDE (test code=CL) 105.0 mmol/L 98-107 CARBON DIOXIDE (test code=CO2) 23.0 mmol/L 21-32 ANION GAP (test code=GAP) 15.1 10-20 GLUCOSE (test code=GLU) 177 mg/dL 74-106 BLOOD UREA NITROGEN (test code=BUN) 10 mg/dL 7-18 GLOMERULAR FILTRATION RATE (test code=GFR) 45 mL/min >=60 Estimated GFR by using Modified MDRD formula.Chronic kidney disease is defined as either kidney damageor GFR <60 mL/min/1.73 m2 for >3 months. CREATININE (test code=CREAT) 1.60 mg/dL 0.7-1.3 BUN/CREATININE RATIO (test code=BUN/CREA) 6.3 10-20 CALCIUM (test code=CA) 8.1 mg/dL 8.5-10.1 [id number] 23:33:00* Test Item Value Reference Range Comments MAGNESIUM (test code=MAG) 1.4 mg/dL 1.8-2.4 CALCIUM [id number] 23:33:00* Test Item Value Reference Range Comments CALCIUM IONIZED (test code=FERNANDO) mmol/L 1.12-1.32 BASIC METABOLIC [id number] 23:28:00* Test Item Value Reference Range Comments SODIUM (test code=NA) 140 mmol/L 136-145 POTASSIUM (test code=K) 3.1 mmol/L 3.5-5.1 CHLORIDE (test code=CL) 105.0 mmol/L 98-107 CARBON DIOXIDE (test code=CO2) mmol/L 21-32 ANION GAP (test code=GAP) 10-20 GLUCOSE (test code=GLU) mg/dL 74-106 BLOOD UREA NITROGEN (test code=BUN) mg/dL 7-18 GLOMERULAR FILTRATION RATE (test code=GFR) mL/min >=60 CREATININE (test code=CREAT) mg/dL 0.7-1.3 BUN/CREATININE RATIO (test code=BUN/CREA) 10-20 CALCIUM (test code=CA) 8.1 mg/dL 8.5-10.1 [id number] 23:28:00* Test Item Value Reference Range Comments MAGNESIUM (test code=MAG) mg/dL 1.8-2.4 CALCIUM [id number] 23:28:00* Test Item Value Reference Range Comments CALCIUM IONIZED (test code=FERNANDO) mmol/L 1.12-1.32 [id number] 23:14:00* Test Item Value Reference Range Comments GLUBED (test code=GLUBED) 183 mg/dL 74-106 Performed by certified launch operator at [facility] [id number] 22:10:00* Test Item Value Reference Range Comments GLUBED (test code=GLUBED) 159 mg/dL 74-106 Performed by certified launch operator at [facility] [id number] 21:30:00* Test Item Value Reference Range Comments MAGNESIUM (test code=MAG) 1.5 mg/dL 1.8-2.4 [id number] 19:22:00* Test Item Value Reference Range Comments DIGOXIN (test code=DIG) 0.8 ng/mL 0.90-2.0 NOTE: Spironolactone interference may cause a decrease inreported Digoxin results of 11-30 %. URINALYSIS [id number] 19:22:00* Test Item Value Reference Range Comments UA COLOR (test code=COLU) YELLOW YELLOW UA APPEARANCE (test code=APPU) CLEAR CLEAR UA GLUCOSE DIPSTICK (test code=DGLUU) NEGATIVE mg/dL NEGATIVE UA BILIRUBIN DIPSTICK (test code=BILU) NEGATIVE mg/dL NEGATIVE UA KETONE DIPSTICK (test code=KETU) NEGATIVE mg/dL NEGATIVE UA SPECIFIC GRAVITY (test code=SGU) 1.008 1.001-1.035 UA BLOOD DIPSTICK (test code=TITO) 2+ (Moderate) mg/dL NEGATIVE UA PH DIPSTICK (test code=STEPAN) 6.0 5.0-8.0 UA PROTEIN DIPSTICK (test code=PROU) NEGATIVE mg/dL NEGATIVE UA UROBILINIOGEN DIPSTICK (test code=URO) NEGATIVE mg/dL NEGATIVE UA NITRITE DIPSTICK (test code=TUYET) NEGATIVE NEGATIVE UA LEUKOCYTE ESTERASE W REFLEX (test code=LEUUR) NEGATIVE Elizabeth/uL NEGATIVE UA WBC (test code=WBCU) 0-5 per HPF 0-5 UA RBC (test code=RBCU) 3-5 #/HPF 0-5 UA EPITHELIAL CELLS (test code=EPIU) FEW per HPF FEW UA BACTERIA (test code=BACU) FEW #/HPF NONE UA HYALINE CAST (test code=HYALU) 0-2 #/LPF 0-5 UA MUCUS (test code=MUCU) FEW #/LPF FEW Urine Source? Clean CatchDRUGS OF ABUSE SCREEN [id number] 19:22:00* Test Item Value Reference Range Comments URN COCAINE (test code=COCAURN) NEGATIVE <300 ng/mL URN CANNABINOIDS (test code=CANNABURN) NEGATIVE <50 ng/mL URN AMPHETAMINE (test code=AMPHETURN) NEGATIVE <1000 ng/mL URN BARBITURATE (test code=BARBITURN) NEGATIVE <200 ng/mL URN BENZODIAZEPINE (test code=BENZOURN) POSITIVE <200 ng/mL This test provides only a preliminary test result. A morespecific alternate chemical method must be used in order toobtain a confirmed analytical result. Gas chromatography/mass spectrometry (GC/MS) is thepreferred confirmatory method. Other chemical confirmationmethods are available. Clinical consideration and professional judgment should be applied to any drug of abusetest result, particularly when preliminary positive resultsare used.Unconfirmed screening results must not be used fornon-medical purposes (e.g., employment testing, legaltesting). URN OPIATES (test code=OPIATURN) NEGATIVE <300 ng/mL URN PHENCYCLIDINE (PCP) (test code=PHENCURN) NEGATIVE <25 ng/mL URN METHADONE (test code=METHAURN) NEGATIVE <300 ng/mL Urine Source? Clean Catch- XR CHEST 1 [id number] 19:12:00 FAX: Juanito Lopez MD [phone] [place]: St: REG FAX: Shalini Colón [phone] Name: PAOLO MCDOWELL [facility] : 1960 Age/S: 58/M [address] [facility] Unit #: [id number] Loc: [place] [address] Phys: Shalini Joseph MD Acct: [id number] Dis Date: Status: REG ER PHONE #: [phone] Exam Date: 03/03/2019 1900 FAX #: [phone] Reason: post central line arie cement EXAMS: CPT CODE: [id number] XR CHEST 1 V 94926 HISTORY: Post central line placement COMPARISON: . Right jugular central line with the tip projected over th e SVC without pneumothorax. No acute infiltrates, effusion o r congestion is noted. Cardiomegaly. IMPRESSION: Right jugular central line with the tip projected over the SVC without pneumothorax. No acute infiltrates, effusion or congestion. Electronically Signed by Mook Magallon on 019 at 1912 Reported and signed by: Jonathan Magallon M.D. CC: Juanito Fam MD; Shalini Joseph MD Technologist: SALUD SON RT(R) Trnscrd [place] e/Time/By: 03/03/2019 (1911) : By: [email or web address] Orig Print D/T: S: 2018 (1914) PAGE 1 Signed Report BASIC METABOLIC [id number] 19:11:00* Test Item Value Reference Range Comments SODIUM (test code=NA) 142 mmol/L 136-145 POTASSIUM (test code=K) 2.8 mmol/L 3.5-5.1 Results called to [id number] by 03/03/191Critical results verified and read back by Nurse? Y CHLORIDE (test code=CL) 106.0 mmol/L 98-107 CARBON DIOXIDE (test code=CO2) 22.0 mmol/L 21-32 ANION GAP (test code=GAP) 16.8 10-20 GLUCOSE (test code=GLU) 261 mg/dL 74-106 BLOOD UREA NITROGEN (test code=BUN) 9 mg/dL 7-18 GLOMERULAR FILTRATION RATE (test code=GFR) > 60 mL/min >=60 Estimated GFR by using Modified MDRD formula.Chronic kidney disease is defined as either kidney damageor GFR <60 mL/min/1.73 m2 for >3 months. CREATININE (test code=CREAT) 1.10 mg/dL 0.7-1.3 BUN/CREATININE RATIO (test code=BUN/CREA) 8.2 10-20 CALCIUM (test code=CA) 7.3 mg/dL 8.5-10.1 HEPATIC FUNCTION [id number] 19:11:00* Test Item Value Reference Range Comments TOTAL PROTEIN (test code=PROT) 5.0 gram/dL 6.4-8.2 ALBUMIN (test code=ALB) 2.5 g/dL 3.4-5.0 GLOBULIN (test code=GLOB) 2.5 gram/dL 2.7-4.2 ALBUMIN/GLOBULIN RATIO (test code=A/G) 1.0 0.75-1.50 BILIRUBIN TOTAL (test code=BILT) 0.40 mg/dL 0.0-1.0 BILIRUBIN DIRECT (test code=BILD) 0.18 mg/dL 0.0-0.20 SGOT/AST (test code=AST) 21 IUnit/L 15-37 SGPT/ALT (test code=ALT) 29 IUnit/L 12-78 ALKALINE PHOSPHATASE TOTAL (test code=ALKP) 119 IUnit/L 45-117 Note change in reference range due to change in reagent. CREATINE KINASE (CK)2019-03-03 19:11:00* Test Item Value Reference Range Comments CREATINE KINASE (CK) (test code=CK) 26 IUnit/L 26-208 [id number] 19:11:00* Test Item Value Reference Range Comments LIPASE (test code=LIP) 94 U/L 73.0-393.0 [id number] 19:11:00* Test Item Value Reference Range Comments TROPONIN-I (test code=TROPI) <0.015 ng/mL 0-0.045 [id number] 19:11:00* Test Item Value Reference Range Comments ACETAMINOPHEN (test code=ACET) < 10 mcg/mL 10-30 A RANGE OF 10-30 mcg/mL IS A THERAPEUTIC RANGE. TOXIC CONCENTRATIONS: >150 mcg/mL AT 4 HOURS AFTER INGESTION >=50 mcg/mL AT 12 HOURS AFTER INGESTION [id number] 19:11:00* Test Item Value Reference Range Comments SALICYLATE (test code=PARTHA) 4.1 mg/dL 2.8-20.0 [id number] 19:11:00* Test Item Value Reference Range Comments ALCOHOL (test code=ALC) 149 mg/dL 0.0-3.0 INTERPRETIVE DATA NOTE: POSITIVE SCREENING RESULTS SHOULD BE CONSIDERED PRESUMPTIVE.WHEN COLLECTED FOR MEDICAL PURPOSES ONLY. SPECIMEN WILL NOTBE COLLECTED BY CHAIN OF CUSTODY.IF A CONFIRMATION OF POSITIVE RESULTS IS DESIRED, ACONFIRMATION TEST MUST BE REQUESTED BY THE PHYSICIAN AT ANADDITIONAL CHARGE TO THE PATIENT. URINALYSIS [id number] 19:09:00* Test Item Value Reference Range Comments UA COLOR (test code=COLU) YELLOW YELLOW UA APPEARANCE (test code=APPU) CLEAR CLEAR UA GLUCOSE DIPSTICK (test code=DGLUU) NEGATIVE mg/dL NEGATIVE UA BILIRUBIN DIPSTICK (test code=BILU) NEGATIVE mg/dL NEGATIVE UA KETONE DIPSTICK (test code=KETU) NEGATIVE mg/dL NEGATIVE UA SPECIFIC GRAVITY (test code=SGU) 1.008 1.001-1.035 UA BLOOD DIPSTICK (test code=TIOT) 2+ (Moderate) mg/dL NEGATIVE UA PH DIPSTICK (test code=STEPAN) 6.0 5.0-8.0 UA PROTEIN DIPSTICK (test code=PROU) NEGATIVE mg/dL NEGATIVE UA UROBILINIOGEN DIPSTICK (test code=URO) NEGATIVE mg/dL NEGATIVE UA NITRITE DIPSTICK (test code=TUYET) NEGATIVE NEGATIVE UA LEUKOCYTE ESTERASE W REFLEX (test code=LEUUR) NEGATIVE Elizabeth/uL NEGATIVE UA WBC (test code=WBCU) 0-5 per HPF 0-5 UA RBC (test code=RBCU) 3-5 #/HPF 0-5 UA EPITHELIAL CELLS (test code=EPIU) FEW per HPF FEW UA BACTERIA (test code=BACU) FEW #/HPF NONE UA HYALINE CAST (test code=HYALU) 0-2 #/LPF 0-5 UA MUCUS (test code=MUCU) FEW #/LPF FEW Urine Source? Clean CatchDRUGS OF ABUSE SCREEN [id number] 19:09:00* Test Item Value Reference Range Comments URN COCAINE (test code=COCAURN) <300 ng/mL URN CANNABINOIDS (test code=CANNABURN) <50 ng/mL URN AMPHETAMINE (test code=AMPHETURN) <1000 ng/mL URN BARBITURATE (test code=BARBITURN) <200 ng/mL URN BENZODIAZEPINE (test code=BENZOURN) <200 ng/mL URN OPIATES (test code=OPIATURN) <300 ng/mL URN PHENCYCLIDINE (PCP) (test code=PHENCURN) <25 ng/mL URN METHADONE (test code=METHAURN) <300 ng/mL Urine Source? Clean CatchURINALYSIS [id number] 19:00:00* Test Item Value Reference Range Comments UA COLOR (test code=COLU) YELLOW YELLOW UA APPEARANCE (test code=APPU) CLEAR CLEAR UA GLUCOSE DIPSTICK (test code=DGLUU) NEGATIVE mg/dL NEGATIVE UA BILIRUBIN DIPSTICK (test code=BILU) NEGATIVE mg/dL NEGATIVE UA KETONE DIPSTICK (test code=KETU) NEGATIVE mg/dL NEGATIVE UA SPECIFIC GRAVITY (test code=SGU) 1.008 1.001-1.035 UA BLOOD DIPSTICK (test code=TITO) 2+ (Moderate) mg/dL NEGATIVE UA PH DIPSTICK (test code=STEPAN) 6.0 5.0-8.0 UA PROTEIN DIPSTICK (test code=PROU) NEGATIVE mg/dL NEGATIVE UA UROBILINIOGEN DIPSTICK (test code=URO) NEGATIVE mg/dL NEGATIVE UA NITRITE DIPSTICK (test code=TUYET) NEGATIVE NEGATIVE UA LEUKOCYTE ESTERASE W REFLEX (test code=LEUUR) NEGATIVE Elizabeth/uL NEGATIVE UA WBC (test code=WBCU) per HPF 0-5 UA RBC (test code=RBCU) per HPF 0-5 UA EPITHELIAL CELLS (test code=EPIU) per HPF Few UA BACTERIA (test code=BACU) per HPF NONE Urine Source? Clean CatchDRUGS OF ABUSE SCREEN [id number] 19:00:00* Test Item Value Reference Range Comments URN COCAINE (test code=COCAURN) <300 ng/mL URN CANNABINOIDS (test code=CANNABURN) <50 ng/mL URN AMPHETAMINE (test code=AMPHETURN) <1000 ng/mL URN BARBITURATE (test code=BARBITURN) <200 ng/mL URN BENZODIAZEPINE (test code=BENZOURN) <200 ng/mL URN OPIATES (test code=OPIATURN) <300 ng/mL URN PHENCYCLIDINE (PCP) (test code=PHENCURN) <25 ng/mL URN METHADONE (test code=METHAURN) <300 ng/mL Urine Source? Clean CatchCBC W/O [id number] 17:50:00* Test Item Value Reference Range Comments WHITE BLOOD CELL (test code=WBC) 11.0 K/mm3 4.5-12.5 RED BLOOD CELL (test code=RBC) 4.62 mill/mm3 4.0-5.8 HEMOGLOBIN (test code=HGB) 15.7 gram/dL 13.0-17.5 HEMATOCRIT (test code=HCT) 46.9 % 42.0-52.0 MEAN CELL VOLUME (test code=MCV) 101.5 fL 80-98 MEAN CELL HGB (test code=MCH) 34.0 picogram 27.0-33.0 MEAN CELL HGB CONCETRATION (test code=MCHC) 33.5 gram/dL 33.0-36.0 RED CELL DISTRIBUTION WIDTH (test code=RDW) 13.2 % 11.6-16.2 PLATELET COUNT (test code=PLT) 290 K/mm3 150-450 MEAN PLATELET VOLUME (test code=MPV) 10.0 fL 6.7-11.0 CBC W/O [id number] 17:49:00* Test Item Value Reference Range Comments WHITE BLOOD CELL (test code=WBC) K/mm3 4.5-12.5 RED BLOOD CELL (test code=RBC) mill/mm3 4.0-5.8 HEMOGLOBIN (test code=HGB) 15.7 gram/dL 13.0-17.5 HEMATOCRIT (test code=HCT) 46.9 % 42.0-52.0 MEAN CELL VOLUME (test code=MCV) fL 80-98 MEAN CELL HGB (test code=MCH) picogram 27.0-33.0 MEAN CELL HGB CONCETRATION (test code=MCHC) gram/dL 33.0-36.0 RED CELL DISTRIBUTION WIDTH (test code=RDW) % 11.6-16.2 PLATELET COUNT (test code=PLT) K/mm3 150-450 MEAN PLATELET VOLUME (test code=MPV) fL 6.7-11.0 - XR CHEST 1 [id number] 17:05:00 FAX: Juanito Lopez MD [phone] [place]: St: REG FAX: Y Shalini Joseph [phone] Name: PAOLO MCDOWELL [facility] : 1960 Age/S: 58/M [address] [facility] Unit #: [id number] Loc: [place] [address] Phys: Shalini Joseph MD Acct: [id number] Dis Date: Status: REG ER PHONE #: [phone] Exam Date: 03/03/2019 1657 FAX #: [phone] Reason: COUGH EXAMS: CPT CODE: [id number] XR CHEST 1 V 73806 HISTORY: Cough. COMPARISON: Chest x-ray from February 16, 2019. No acute infiltrates, effusion or congestion is noted. Cardiomegaly. IMPRESSION: No acute infiltrates, effusion or congestion. at 1700 Reported and signed by: Jonathan Magallon M.D. CC: Juanito Fam MD; Shalini Yeung MD Technologist: Liliane So Trnazrd Date/Time/By: 03/03/2019 (3530) : By: [email or web address] Orig Print D/T: S: 03/03/2019 (6238) PAGE 1 Signed Report BASIC METABOLIC PANEL 2019-02-19 05:36:00* Test Item Value Reference Range Comments SODIUM (test code=NA) 138 mmol/L 136-145 POTASSIUM (test code=K) 4.1 mmol/L 3.5-5.1 CHLORIDE (test code=CL) 104.0 mmol/L 98-107 CARBON DIOXIDE (test code=CO2) 29.0 mmol/L 21-32 ANION GAP (test code=GAP) 9.1 10-20 GLUCOSE (test code=GLU) 129 mg/dL 74-106 BLOOD UREA NITROGEN (test code=BUN) 26 mg/dL 7-18 GLOMERULAR FILTRATION RATE (test code=GFR) > 60 mL/min >=60 Estimated GFR by using Modified MDRD formula.Chronic kidney disease is defined as either kidney damageor GFR <60 mL/min/1.73 m2 for >3 months. CREATININE (test code=CREAT) 0.80 mg/dL 0.7-1.3 BUN/CREATININE RATIO (test code=BUN/CREA) 32.5 10-20 CALCIUM (test code=CA) 8.7 mg/dL 8.5-10.1 BASIC METABOLIC [id number] 05:24:00* Test Item Value Reference Range Comments SODIUM (test code=NA) 138 mmol/L 136-145 POTASSIUM (test code=K) 4.1 mmol/L 3.5-5.1 CHLORIDE (test code=CL) 104.0 mmol/L 98-107 CARBON DIOXIDE (test code=CO2) mmol/L 21-32 ANION GAP (test code=GAP) 10-20 GLUCOSE (test code=GLU) mg/dL 74-106 BLOOD UREA NITROGEN (test code=BUN) mg/dL 7-18 GLOMERULAR FILTRATION RATE (test code=GFR) mL/min >=60 CREATININE (test code=CREAT) mg/dL 0.7-1.3 BUN/CREATININE RATIO (test code=BUN/CREA) 10-20 CALCIUM (test code=CA) mg/dL 8.5-10.1 CBC W/AUTO [id number] 05:06:00* Test Item Value Reference Range Comments WHITE BLOOD CELL (test code=WBC) 7.1 K/mm3 4.5-12.5 RED BLOOD CELL (test code=RBC) 4.06 mill/mm3 4.0-5.8 HEMOGLOBIN (test code=HGB) 13.7 gram/dL 13.0-17.5 HEMATOCRIT (test code=HCT) 43.5 % 42.0-52.0 MEAN CELL VOLUME (test code=MCV) 107.1 fL 80-98 MEAN CELL HGB (test code=MCH) 33.7 picogram 27.0-33.0 MEAN CELL HGB CONCETRATION (test code=MCHC) 31.5 gram/dL 33.0-36.0 RED CELL DISTRIBUTION WIDTH (test code=RDW) 12.9 % 11.6-16.2 RED CELL DISTRIBUTION WIDTH SD (test code=RDW-SD) 50.7 fL 37.0-51.0 PLATELET COUNT (test code=PLT) 139 K/mm3 150-450 MEAN PLATELET VOLUME (test code=MPV) 9.8 fL 6.7-11.0 NEUTROPHIL % (test code=NT%) 67.4 % 39.0-69.0 IMMATURE GRANULOCYTE % (test code=IG%) 1.0 % 0.0-5.0 LYMPHOCYTE % (test code=LY%) 21.3 % 25.0-55.0 MONOCYTE % (test code=MO%) 8.9 % 0.0-10.0 EOSINOPHIL % (test code=EO%) 1.0 % 0.0-5.0 BASOPHIL % (test code=BA%) 0.4 % 0.0-1.0 NUCLEATED RBC % (test code=NRBC%) 0.0 % 0-0 NEUTROPHIL # (test code=NT#) 4.77 K/mm3 1.8-7.7 IMMATURE GRANULOCYTE # (test code=IG#) 0.07 x10 3/uL 0-0.03 LYMPHOCYTE # (test code=LY#) 1.51 K/mm3 1.0-5.0 MONOCYTE # (test code=MO#) 0.63 K/mm3 0-0.8 EOSINOPHIL # (test code=EO#) 0.07 K/mm3 0.0-0.5 BASOPHIL # (test code=BA#) 0.03 K/mm3 0.0-0.2 NUCLEATED RBC # (test code=NRBC#) 0.00 K/mm3 0.0-0.1 CBC W/AUTO [id number] 05:03:00* Test Item Value Reference Range Comments WHITE BLOOD CELL (test code=WBC) K/mm3 4.5-12.5 RED BLOOD CELL (test code=RBC) mill/mm3 4.0-5.8 HEMOGLOBIN (test code=HGB) 13.7 gram/dL 13.0-17.5 HEMATOCRIT (test code=HCT) 43.5 % 42.0-52.0 MEAN CELL VOLUME (test code=MCV) fL 80-98 MEAN CELL HGB (test code=MCH) picogram 27.0-33.0 MEAN CELL HGB CONCETRATION (test code=MCHC) gram/dL 33.0-36.0 RED CELL DISTRIBUTION WIDTH (test code=RDW) % 11.6-16.2 RED CELL DISTRIBUTION WIDTH SD (test code=RDW-SD) fL 37.0-51.0 PLATELET COUNT (test code=PLT) K/mm3 150-450 MEAN PLATELET VOLUME (test code=MPV) fL 6.7-11.0 NEUTROPHIL % (test code=NT%) % 39.0-69.0 IMMATURE GRANULOCYTE % (test code=IG%) % 0.0-5.0 LYMPHOCYTE % (test code=LY%) % 25.0-55.0 MONOCYTE % (test code=MO%) % 0.0-10.0 EOSINOPHIL % (test code=EO%) % 0.0-5.0 BASOPHIL % (test code=BA%) % 0.0-1.0 NEUTROPHIL # (test code=NT#) K/mm3 1.8-7.7 LYMPHOCYTE # (test code=LY#) K/mm3 1.0-5.0 MONOCYTE # (test code=MO#) K/mm3 0-0.8 EOSINOPHIL # (test code=EO#) K/mm3 0.0-0.5 BASOPHIL # (test code=BA#) K/mm3 0.0-0.2 [id number] 18:19:00* Test Item Value Reference Range Comments DIGOXIN (test code=DIG) 0.3 ng/mL 0.90-2.0 NOTE: Spironolactone interference may cause a decrease inreported Digoxin results of 11-30 %. URINALYSIS [id number] 18:01:00* Test Item Value Reference Range Comments UA COLOR (test code=COLU) YELLOW YELLOW UA APPEARANCE (test code=APPU) CLEAR CLEAR UA GLUCOSE DIPSTICK (test code=DGLUU) NEGATIVE mg/dL NEGATIVE UA BILIRUBIN DIPSTICK (test code=BILU) NEGATIVE mg/dL NEGATIVE UA KETONE DIPSTICK (test code=KETU) NEGATIVE mg/dL NEGATIVE UA SPECIFIC GRAVITY (test code=SGU) 1.023 1.001-1.035 UA BLOOD DIPSTICK (test code=TITO) 1+ (Small) mg/dL NEGATIVE UA PH DIPSTICK (test code=STEPAN) 5.0 5.0-8.0 UA PROTEIN DIPSTICK (test code=PROU) NEGATIVE mg/dL NEGATIVE UA UROBILINIOGEN DIPSTICK (test code=URO) NEGATIVE mg/dL NEGATIVE UA NITRITE DIPSTICK (test code=TUYET) NEGATIVE NEGATIVE UA LEUKOCYTE ESTERASE W REFLEX (test code=LEUUR) NEGATIVE Elizabeth/uL NEGATIVE UA WBC (test code=WBCU) 0-5 per HPF 0-5 UA RBC (test code=RBCU) 0-2 #/HPF 0-5 UA BACTERIA (test code=BACU) FEW #/HPF NONE Urine Source? [employer] PROFILE (CORONARY RISK)2019-02-18 11:35:00* Test Item Value Reference Range Comments TRIGLYCERIDES (test code=TRIG) 92 mg/dL 20-150 CHOLESTEROL (test code=CHOL) 172 mg/dL 0-200 CHOLESTEROL/HDL RATIO (test code=CHOLHDL) 2.0 RATIO 0-4.9 RISK ASSOCIATED WITH CHOL/HDL RATIOS: Risk Male Female1/2 AVERAGE 3.43 3.27AVERAGE 4.97 4.442X AVERAGE 9.55 7.053X AVERAGE 23.39 11.04 REFERENCE VALUE IS RELATED TO RISK LEVELS ASRECOMMENDED BY THE LESLY. HEART, LUNG, AND BLOOD INST. HDL CHOLESTEROL (test code=HDL) 63 mg/dL 40-60 LIPOPROTEIN LDL (test code=LDL) 94 mg/dL 100-129 Reference Interval: mg/dL mmol/L Optimal <100 <2.6Near/above optimal 100-129 2.6- 3.3Borderline High 130-159 3.4-4.1High 160-189 4.1-4.9Very High >=190 >=4.9=========This LDL result is a direct measurement.========= BASIC METABOLIC [id number] 14:05:00* Test Item Value Reference Range Comments SODIUM (test code=NA) 142 mmol/L 136-145 POTASSIUM (test code=K) 3.5 mmol/L 3.5-5.1 CHLORIDE (test code=CL) 104.0 mmol/L 98-107 CARBON DIOXIDE (test code=CO2) 30.0 mmol/L 21-32 ANION GAP (test code=GAP) 11.5 10-20 GLUCOSE (test code=GLU) 126 mg/dL 74-106 BLOOD UREA NITROGEN (test code=BUN) 25 mg/dL 7-18 GLOMERULAR FILTRATION RATE (test code=GFR) > 60 mL/min >=60 Estimated GFR by using Modified MDRD formula.Chronic kidney disease is defined as either kidney damageor GFR <60 mL/min/1.73 m2 for >3 months. CREATININE (test code=CREAT) 0.90 mg/dL 0.7-1.3 BUN/CREATININE RATIO (test code=BUN/CREA) 27.8 10-20 CALCIUM (test code=CA) 9.4 mg/dL 8.5-10.1 HEPATIC FUNCTION [id number] 14:05:00* Test Item Value Reference Range Comments TOTAL PROTEIN (test code=PROT) 6.5 gram/dL 6.4-8.2 ALBUMIN (test code=ALB) 3.0 g/dL 3.4-5.0 GLOBULIN (test code=GLOB) 3.5 gram/dL 2.7-4.2 ALBUMIN/GLOBULIN RATIO (test code=A/G) 0.9 0.75-1.50 BILIRUBIN TOTAL (test code=BILT) 0.70 mg/dL 0.0-1.0 BILIRUBIN DIRECT (test code=BILD) 0.25 mg/dL 0.0-0.20 SGOT/AST (test code=AST) 39 IUnit/L 15-37 SGPT/ALT (test code=ALT) 40 IUnit/L 12-78 ALKALINE PHOSPHATASE TOTAL (test code=ALKP) 105 IUnit/L 45-117 Note change in reference range due to change in reagent. [id number] 14:05:00* Test Item Value Reference Range Comments MAGNESIUM (test code=MAG) 2.4 mg/dL 1.8-2.4 CREATINE KINASE (CK)2019-02-16 14:05:00* Test Item Value Reference Range Comments CREATINE KINASE (CK) (test code=CK) 162 IUnit/L 26-208 BASIC METABOLIC [id number] 13:59:00* Test Item Value Reference Range Comments SODIUM (test code=NA) 142 mmol/L 136-145 POTASSIUM (test code=K) 3.5 mmol/L 3.5-5.1 CHLORIDE (test code=CL) 104.0 mmol/L 98-107 CARBON DIOXIDE (test code=CO2) mmol/L 21-32 ANION GAP (test code=GAP) 10-20 GLUCOSE (test code=GLU) mg/dL 74-106 BLOOD UREA NITROGEN (test code=BUN) mg/dL 7-18 GLOMERULAR FILTRATION RATE (test code=GFR) mL/min >=60 CREATININE (test code=CREAT) mg/dL 0.7-1.3 BUN/CREATININE RATIO (test code=BUN/CREA) 10-20 CALCIUM (test code=CA) mg/dL 8.5-10.1 HEPATIC FUNCTION [id number] 13:59:00* Test Item Value Reference Range Comments TOTAL PROTEIN (test code=PROT) gram/dL 6.4-8.2 ALBUMIN (test code=ALB) g/dL 3.4-5.0 GLOBULIN (test code=GLOB) gram/dL 2.7-4.2 ALBUMIN/GLOBULIN RATIO (test code=A/G) 0.75-1.50 BILIRUBIN TOTAL (test code=BILT) mg/dL 0.0-1.0 BILIRUBIN DIRECT (test code=BILD) mg/dL 0.0-0.20 SGOT/AST (test code=AST) IUnit/L 15-37 SGPT/ALT (test code=ALT) IUnit/L 12-78 ALKALINE PHOSPHATASE TOTAL (test code=ALKP) IUnit/L 45-117 [id number] 13:59:00* Test Item Value Reference Range Comments MAGNESIUM (test code=MAG) mg/dL 1.8-2.4 [id number] 13:59:00* Test Item Value Reference Range Comments ALCOHOL (test code=ALC) < 3 mg/dL 0.0-3.0 INTERPRETIVE DATA NOTE: POSITIVE SCREENING RESULTS SHOULD BE CONSIDERED PRESUMPTIVE.WHEN COLLECTED FOR MEDICAL PURPOSES ONLY. SPECIMEN WILL NOTBE COLLECTED BY CHAIN OF CUSTODY.IF A CONFIRMATION OF POSITIVE RESULTS IS DESIRED, ACONFIRMATION TEST MUST BE REQUESTED BY THE PHYSICIAN AT ANADDITIONAL CHARGE TO THE PATIENT. - XR CHEST 2 [id number] 13:47:00 FAX: Jossie Duenas [phone] [place]: St: [facility] FAX: Juanito Lopez MD [phone] Name: PAOLO MCDOWELL [facility] : 1960 Age/S: 58/M [address] [facility] Unit #: [id number] Loc: [place] [address] Phys: Jossie Wheeler MD Acct: [id number] Dis Date: Status: REG ER PHONE #: [phone] Exam Date: 02/16/2019 1331 FAX #: [phone] Reason: SOB EXAMS: CPT CODE: [id number] XR CHEST 2 V 26203 HISTORY: Shortness of breath. COMPARISON: January 25, 2019. AP and lateral view of the chest: No acute infiltrates, effusion or congestion. Cardiomegaly. DJD of the dorsal spine IMPRESSION: No acute infiltrates, effusion or congestion. at 1347 Reported and signed by: Jonathan Magallon M.D. CC: Jossie Wheeler MD; Juanito Fam MD Technologist: Veronica VILA) Trnscrd Date/Time/By: 02/16/2019 (0293) : By: [email or web address] Orig Print D/T: S: 02/16/2019 (1025) PAGE 1 Signed Report PROTHROMBIN [id number] 13:40:00* Test Item Value Reference Range Comments PROTHROMBIN TIME PATIENT (test code=PTP) 10.7 seconds 9.0-14.0 INTERNATIONAL NORMAL RATIO (test code=INR) 0.9 0.8-1.2 The therapeutic range for oral anticoagulant therapy formost indications is an international normalized ratio (INR)of between 2.0 and 3.0. The recommended therapeutic INRrange for various clinical situations is listed below: Clinical Situation INR range Pulmonary e mbolism treatment (2.0-3.0)Venous thrombosis treatmentVenous thrombosis prophylaxis (high risk surgery)Prevention of systemic embolism from: Acute myocardial infarction Valvular heart disease Atrial fibrillation Mechanical prosthetic heart valves (2.5-3.5) IS PATIENT ON ANTICOAGULANTS? YLIST ANTICOAGULANTS xareltoTHROMBOPLASTIN TIME [id number] 13:40:00* Test Item Value Reference Range Comments THROMBOPLASTIN TIME PARTIAL (test code=PTT) 31.2 seconds 25.0-36.5 IS PATIENT ON ANTICOAGULANTS? YLIST ANTICOAGULANTS xareltoCBC W/AUTO DIFF 2019-02-16 13:32:00* Test Item Value Reference Range Comments WHITE BLOOD CELL (test code=WBC) K/mm3 4.5-12.5 RED BLOOD CELL (test code=RBC) mill/mm3 4.0-5.8 HEMOGLOBIN (test code=HGB) 15.7 gram/dL 13.0-17.5 HEMATOCRIT (test code=HCT) 44.8 % 42.0-52.0 MEAN CELL VOLUME (test code=MCV) fL 80-98 MEAN CELL HGB (test code=MCH) picogram 27.0-33.0 MEAN CELL HGB CONCETRATION (test code=MCHC) gram/dL 33.0-36.0 RED CELL DISTRIBUTION WIDTH (test code=RDW) % 11.6-16.2 RED CELL DISTRIBUTION WIDTH SD (test code=RDW-SD) fL 37.0-51.0 PLATELET COUNT (test code=PLT) K/mm3 150-450 MEAN PLATELET VOLUME (test code=MPV) fL 6.7-11.0 NEUTROPHIL % (test code=NT%) % 39.0-69.0 IMMATURE GRANULOCYTE % (test code=IG%) % 0.0-5.0 LYMPHOCYTE % (test code=LY%) % 25.0-55.0 MONOCYTE % (test code=MO%) % 0.0-10.0 EOSINOPHIL % (test code=EO%) % 0.0-5.0 BASOPHIL % (test code=BA%) % 0.0-1.0 NEUTROPHIL # (test code=NT#) K/mm3 1.8-7.7 LYMPHOCYTE # (test code=LY#) K/mm3 1.0-5.0 MONOCYTE # (test code=MO#) K/mm3 0-0.8 EOSINOPHIL # (test code=EO#) K/mm3 0.0-0.5 BASOPHIL # (test code=BA#) K/mm3 0.0-0.2 CBC W/AUTO [id number] 13:32:00* Test Item Value Reference Range Comments WHITE BLOOD CELL (test code=WBC) 10.2 K/mm3 4.5-12.5 RED BLOOD CELL (test code=RBC) 4.46 mill/mm3 4.0-5.8 HEMOGLOBIN (test code=HGB) 15.7 gram/dL 13.0-17.5 HEMATOCRIT (test code=HCT) 44.8 % 42.0-52.0 MEAN CELL VOLUME (test code=MCV) 100.4 fL 80-98 MEAN CELL HGB (test code=MCH) 35.2 picogram 27.0-33.0 MEAN CELL HGB CONCETRATION (test code=MCHC) 35.0 gram/dL 33.0-36.0 RED CELL DISTRIBUTION WIDTH (test code=RDW) 13.1 % 11.6-16.2 RED CELL DISTRIBUTION WIDTH SD (test code=RDW-SD) 48.3 fL 37.0-51.0 PLATELET COUNT (test code=PLT) 159 K/mm3 150-450 MEAN PLATELET VOLUME (test code=MPV) 9.4 fL 6.7-11.0 NEUTROPHIL % (test code=NT%) 78.3 % 39.0-69.0 IMMATURE GRANULOCYTE % (test code=IG%) 1.1 % 0.0-5.0 LYMPHOCYTE % (test code=LY%) 11.9 % 25.0-55.0 MONOCYTE % (test code=MO%) 8.3 % 0.0-10.0 EOSINOPHIL % (test code=EO%) 0.1 % 0.0-5.0 BASOPHIL % (test code=BA%) 0.3 % 0.0-1.0 NUCLEATED RBC % (test code=NRBC%) 0.0 % 0-0 NEUTROPHIL # (test code=NT#) 7.97 K/mm3 1.8-7.7 IMMATURE GRANULOCYTE # (test code=IG#) 0.11 x10 3/uL 0-0.03 LYMPHOCYTE # (test code=LY#) 1.21 K/mm3 1.0-5.0 MONOCYTE # (test code=MO#) 0.85 K/mm3 0-0.8 EOSINOPHIL # (test code=EO#) 0.01 K/mm3 0.0-0.5 BASOPHIL # (test code=BA#) 0.03 K/mm3 0.0-0.2 NUCLEATED RBC # (test code=NRBC#) 0.00 K/mm3 0.0-0.1 MANUAL DIFF REQUIRED (test code=MDIFF) NO CBC W/O [id number] 17:56:00* Test Item Value Reference Range Comments WHITE BLOOD CELL (test code=WBC) 9.0 K/mm3 4.5-12.5 RED BLOOD CELL (test code=RBC) 4.57 mill/mm3 4.0-5.8 HEMOGLOBIN (test code=HGB) 15.7 gram/dL 13.0-17.5 HEMATOCRIT (test code=HCT) 49.0 % 42.0-52.0 MEAN CELL VOLUME (test code=MCV) 107.2 fL 80-98 MEAN CELL HGB (test code=MCH) 34.4 picogram 27.0-33.0 MEAN CELL HGB CONCETRATION (test code=MCHC) 32.0 gram/dL 33.0-36.0 RED CELL DISTRIBUTION WIDTH (test code=RDW) 13.2 % 11.6-16.2 PLATELET COUNT (test code=PLT) 187 K/mm3 150-450 MEAN PLATELET VOLUME (test code=MPV) 9.4 fL 6.7-11.0 CBC W/O [id number] 17:53:00* Test Item Value Reference Range Comments WHITE BLOOD CELL (test code=WBC) K/mm3 4.5-12.5 RED BLOOD CELL (test code=RBC) mill/mm3 4.0-5.8 HEMOGLOBIN (test code=HGB) 15.7 gram/dL 13.0-17.5 HEMATOCRIT (test code=HCT) 49.0 % 42.0-52.0 MEAN CELL VOLUME (test code=MCV) fL 80-98 MEAN CELL HGB (test code=MCH) picogram 27.0-33.0 MEAN CELL HGB CONCETRATION (test code=MCHC) gram/dL 33.0-36.0 RED CELL DISTRIBUTION WIDTH (test code=RDW) % 11.6-16.2 PLATELET COUNT (test code=PLT) K/mm3 150-450 MEAN PLATELET VOLUME (test code=MPV) fL 6.7-11.0 BASIC METABOLIC [id number] 17:39:00* Test Item Value Reference Range Comments SODIUM (test code=NA) 141 mmol/L 136-145 POTASSIUM (test code=K) 3.9 mmol/L 3.5-5.1 CHLORIDE (test code=CL) 108.0 mmol/L 98-107 CARBON DIOXIDE (test code=CO2) 26.0 mmol/L 21-32 ANION GAP (test code=GAP) 10.9 10-20 GLUCOSE (test code=GLU) 103 mg/dL 74-106 BLOOD UREA NITROGEN (test code=BUN) 18 mg/dL 7-18 GLOMERULAR FILTRATION RATE (test code=GFR) > 60 mL/min >=60 Estimated GFR by using Modified MDRD formula.Chronic kidney disease is defined as either kidney damageor GFR <60 mL/min/1.73 m2 for >3 months. CREATININE (test code=CREAT) 0.80 mg/dL 0.7-1.3 BUN/CREATININE RATIO (test code=BUN/CREA) 22.5 10-20 CALCIUM (test code=CA) 8.8 mg/dL 8.5-10.1 HEPATIC FUNCTION [id number] 17:39:00* Test Item Value Reference Range Comments TOTAL PROTEIN (test code=PROT) 6.3 gram/dL 6.4-8.2 ALBUMIN (test code=ALB) 3.2 g/dL 3.4-5.0 GLOBULIN (test code=GLOB) 3.1 gram/dL 2.7-4.2 ALBUMIN/GLOBULIN RATIO (test code=A/G) 1.0 0.75-1.50 BILIRUBIN TOTAL (test code=BILT) 0.30 mg/dL 0.0-1.0 BILIRUBIN DIRECT (test code=BILD) 0.11 mg/dL 0.0-0.20 SGOT/AST (test code=AST) 44 IUnit/L 15-37 SGPT/ALT (test code=ALT) 46 IUnit/L 12-78 ALKALINE PHOSPHATASE TOTAL (test code=ALKP) 101 IUnit/L 45-117 Note change in reference range due to change in reagent. [id number] 17:39:00* Test Item Value Reference Range Comments TROPONIN-I (test code=TROPI) 0.018 ng/mL 0-0.045 [id number] 17:39:00* Test Item Value Reference Range Comments ALCOHOL (test code=ALC) 297 mg/dL 0-3 INTERPRETATION: ETHYL ALCOHOL VALUES 50 MG/DL - NOT INTOXICATED 100 MG/DL - INTOXICATED 350-450 MG/DL- SEVERELY INTOXICATED >=550 MG/DL - FATAL INTOXICATION - XR FOOT 3 + V [id number] 17:24:00 FAX: Jossie Duenas [phone] [place]: B : [facility] FAX: Juanito Lopez MD [phone] Name: PAOLO MCDOWELL [facility] : 1960 Age/S: 58/M [facility] Unit #: [id number] Loc: [place] [address] Phys: Jossie Wheeler MD Acct: [id number] Dis Date: Status: REG ER PHONE #: [phone] Exam Date: 02/13/2019 1710 FAX #: [phone] Reason: bruising and swelling EXAMS: CPT CODE: [id number] XR FOOT 3 + V LT [address]68 REASON FOR EXAM: bruising and swelling EXAM ORDER DATE: 02/13/2019 4:46 PM Ordering MMendoza: Jossie Wheeler MD PROCEDURE: - XR FOOT 3 + V LT FI NDINGS: 3 views of the left foot were obtained. Orthopedic pin noted along the shaft of the second phalanx. There is normal alignment of the digits. IMPRESSION: Minimally displaced transverse fractures of the base of the fourth and fifth proximal phalanges. Probable nondisplaced transverse fracture of the midshaft of the third proximal phalanx. at 1724 Reported and signed by: Aiden Smith M.D. CC: Olena Wheeler MD; Juanito Fam MD Technologist: ANITA SimmonsR; Liliane So Trnscrd Date/Time/By: 02/13/2019 (172) : By: DavidL Orig Print D/T: S: 02/13/2019 (2141) PAGE 1 Signed Report BASIC METABOLIC [id number] 17:23:00* Test Item Value Reference Range Comments SODIUM (test code=NA) 141 mmol/L 136-145 POTASSIUM (test code=K) 3.9 mmol/L 3.5-5.1 CHLORIDE (test code=CL) 108.0 mmol/L 98-107 CARBON DIOXIDE (test code=CO2) 26.0 mmol/L 21-32 ANION GAP (test code=GAP) 10.9 10-20 GLUCOSE (test code=GLU) 103 mg/dL 74-106 BLOOD UREA NITROGEN (test code=BUN) 18 mg/dL 7-18 GLOMERULAR FILTRATION RATE (test code=GFR) > 60 mL/min >=60 Estimated GFR by using Modified MDRD formula.Chronic kidney disease is defined as either kidney damageor GFR <60 mL/min/1.73 m2 for >3 months. CREATININE (test code=CREAT) 0.80 mg/dL 0.7-1.3 BUN/CREATININE RATIO (test code=BUN/CREA) 22.5 10-20 CALCIUM (test code=CA) 8.8 mg/dL 8.5-10.1 HEPATIC FUNCTION [id number] 17:23:00* Test Item Value Reference Range Comments TOTAL PROTEIN (test code=PROT) 6.3 gram/dL 6.4-8.2 ALBUMIN (test code=ALB) 3.2 g/dL 3.4-5.0 GLOBULIN (test code=GLOB) 3.1 gram/dL 2.7-4.2 ALBUMIN/GLOBULIN RATIO (test code=A/G) 1.0 0.75-1.50 BILIRUBIN TOTAL (test code=BILT) 0.30 mg/dL 0.0-1.0 BILIRUBIN DIRECT (test code=BILD) 0.11 mg/dL 0.0-0.20 SGOT/AST (test code=AST) 44 IUnit/L 15-37 SGPT/ALT (test code=ALT) 46 IUnit/L 12-78 ALKALINE PHOSPHATASE TOTAL (test code=ALKP) 101 IUnit/L 45-117 Note change in reference range due to change in reagent. [id number] 17:23:00* Test Item Value Reference Range Comments TROPONIN-I (test code=TROPI) 0.018 ng/mL 0-0.045 [id number] 17:23:00* Test Item Value Reference Range Comments ALCOHOL (test code=ALC) mg/dL 0-3 BASIC METABOLIC [id number] 17:12:00* Test Item Value Reference Range Comments SODIUM (test code=NA) 141 mmol/L 136-145 POTASSIUM (test code=K) 3.9 mmol/L 3.5-5.1 CHLORIDE (test code=CL) 108.0 mmol/L 98-107 CARBON DIOXIDE (test code=CO2) mmol/L 21-32 ANION GAP (test code=GAP) 10-20 GLUCOSE (test code=GLU) mg/dL 74-106 BLOOD UREA NITROGEN (test code=BUN) mg/dL 7-18 GLOMERULAR FILTRATION RATE (test code=GFR) mL/min >=60 CREATININE (test code=CREAT) mg/dL 0.7-1.3 BUN/CREATININE RATIO (test code=BUN/CREA) 10-20 CALCIUM (test code=CA) mg/dL 8.5-10.1 HEPATIC FUNCTION [id number] 17:12:00* Test Item Value Reference Range Comments TOTAL PROTEIN (test code=PROT) gram/dL 6.4-8.2 ALBUMIN (test code=ALB) g/dL 3.4-5.0 GLOBULIN (test code=GLOB) gram/dL 2.7-4.2 ALBUMIN/GLOBULIN RATIO (test code=A/G) 0.75-1.50 BILIRUBIN TOTAL (test code=BILT) mg/dL 0.0-1.0 BILIRUBIN DIRECT (test code=BILD) mg/dL 0.0-0.20 SGOT/AST (test code=AST) IUnit/L 15-37 SGPT/ALT (test code=ALT) IUnit/L 12-78 ALKALINE PHOSPHATASE TOTAL (test code=ALKP) IUnit/L 45-117 [id number] 17:12:00* Test Item Value Reference Range Comments TROPONIN-I (test code=TROPI) ng/mL 0-0.045 [id number] 17:12:00* Test Item Value Reference Range Comments ALCOHOL (test code=ALC) mg/dL 0-3 PROTHROMBIN [id number] 16:55:00* Test Item Value Reference Range Comments PROTHROMBIN TIME PATIENT (test code=PTP) 9.8 seconds 9.0-14.0 INTERNATIONAL NORMAL RATIO (test code=INR) 0.8 0.8-1.2 The therapeutic range for oral anticoagulant therapy formost indications is an international normalized ratio (INR)of between 2.0 and 3.0. The recommended therapeutic INRrange for various clinical situations is listed below: Clinical Situation INR range Pulmonary e mbolism treatment (2.0-3.0)Venous thrombosis treatmentVenous thrombosis prophylaxis (high risk surgery)Prevention of systemic embolism from: Acute myocardial infarction Valvular heart disease Atrial fibrillation Mechanical prosthetic heart valves (2.5-3.5) IS PATIENT ON ANTICOAGULANTS? NTHROMBOPLASTIN TIME [id number] 16:55:00* Test Item Value Reference Range Comments THROMBOPLASTIN TIME PARTIAL (test code=PTT) 20.4 seconds 25.0-36.5 IS PATIENT ON ANTICOAGULANTS? N- XR ELBOW 3 + V [id number] 16:16:00 FAX: Jossie Duenas [phone] [place]: St: [facility] FAX: Juanito Lopez MD [phone] Name: PAOLO MCDOWELL [facility] : 1960 Age/S: 58/M [address] [facility] Unit #: [id number] Loc: [place] [address] Phys: Jossie Wheeler MD Acct: [id number] Dis Date: Status: REG ER PHONE #: [phone] Exam Date: 02/13/2019 1600 FAX #: [phone] Reason: ELBOW PAIN EXAMS: CPT CODE: [id number] XR ELBOW 3 + V LT [id number] REASON FOR EXAM: ELBOW PAIN EXAM ORDER DATE: 02/13/2019 3:39 PM Ordering Mook: Jossie michaels MD PROCEDURE: - XR ELBOW 3 + V LT FINDINGS: 3 views of the left elbow were obtained. The osseous structures are unremark able in size and shape. The joint spaces are maintained. No evidence of fr acture. No evidence of joint effusion IMPRESSION: Unremarkable left elbow at 16 16 Reported and signed by: Aiden Smith M.D. CC: Jossie Wheeler MD; Juanito Fam MD Technologist: [facility]ALLO [facility] Date/Time/By: (3268) : By: LilianaVTL Orig Print D/T: S: 02/13/2019 (1829) PAGE 1 Signed Report - XR WRIST 3 + V [id number] 16:14:00 FAX: Jossie Duenas [phone] [place]: St: REG FAX: Juanito Lopez MD [phone] Name: PAOLO MCDOWELL [facility] : 1960 Age/S: 58/M [address] [facility] Unit #: [id number] Loc: [place] [address] Phys: Jossie Wheeler MD Acct: [id number] Dis Date: Status: REG ER PHONE #: [phone] Exam Date: 02/13/2019 1600 FAX #: [phone] Reason: WRIST PAIN EXAMS: CPT CODE: [id number] XR WRIST 3 + V LT [id number] REASON FOR EXAM: WRIST PAIN EXAM ORDER DATE: 02/13/2019 3:39 PM Ordering Mook: Jossie michaels MD PROCEDURE: - XR WRIST 3 + V LT FINDINGS: 3 views of the left wrist were obtained. The joint spaces are maintained. Th e radiocarpal joint space is intact. A minimally displaced ulnar styloid p rocess fracture. Cortical disruption of the distal ulna is also noted. IMPRESSION: Minimally impacted probable subacute fracture of the distal left radius with 20 degree dorsal tilting. Minimally displaced oblique fracture of the distal left ulna at 1614 Reported and signed by: Aidne Smith M.D. CC: Jossie Wheeler MD; Juanito Fam MD Technologist: REI DIALLO Trnscrd Date/Time/By: 02/13/2019 (8320) : By: DavidL Orig Pr int D/T: S: 02/13/2019 (4637) PAGE 1 Signed Report - CT HEAD/BRAIN W/O CONT 2019-02-13 15:56:00 Name: PAOLO MCDOWELL [facility] : 1960 Age/S: 58 / M [address] [facility] Unit #: [id number] Loc: [place] [address] Phys: Jossie Wheeler MD Acct: [id number] Dis Date: Status: PRE ER PHONE #: [phone] Exam Date: 02/13/2019 1552 FAX #: [phone] Reason: HEADACHE EXAMS: CPT CODE: [id number] CT HEAD/BRAIN W/O CONT 53437 REASON FOR EXAM: HEADACHE, fall on blood thinner EXAM ORDER DATE: 02/13/2019 3:39 PM Ordering Mook: Jossie Wheeler MD PROCEDURE: - CT HEAD/BRAIN W/O CONT COMPARISON: 01/25/2019 FINDINGS: CT images of the brain were obtained without IV contrast. Dose modulation, iterative reconstruction, and/or weight based adjustment of the MA/KV was utilized to reduce the radiation dose to as low as reasonably achievable. The brain parenchyma is within normal limits. The becerra-white matter delineation is unremarkable. The ventricles, cisterns, and sulci are unremarkable. There is no evidence of hemorrhage, mass, mass effect. There is no evidence of acute or old infarct. The calvarium is intact. IMPRESSION: Unremarkable brain. at 1556 Reported and signed by: Aiden Smith M.D. CC: Jossie Wheeler MD; Juanito Fam MD Technologist:Shelly Calzada RT(R),CT CTDI: DLP: Trnscb Date/Time: 02/13/2019 (9306) t.SDR.VTL Orig Print D/T: S: 02/13/2019 (7657) CTDI: DLP: PAGE 1 Signed Report BASIC METABOLIC [id number] 01:50:00* Test Item Value Reference Range Comments SODIUM (test code=NA) 146 mmol/L 136-145 POTASSIUM (test code=K) 3.9 mmol/L 3.5-5.1 CHLORIDE (test code=CL) 110.0 mmol/L 98-107 CARBON DIOXIDE (test code=CO2) 27.0 mmol/L 21-32 ANION GAP (test code=GAP) 12.9 10-20 GLUCOSE (test code=GLU) 87 mg/dL 74-106 BLOOD UREA NITROGEN (test code=BUN) 15 mg/dL 7-18 GLOMERULAR FILTRATION RATE (test code=GFR) > 60 mL/min >=60 Estimated GFR by using Modified MDRD formula.Chronic kidney disease is defined as either kidney damageor GFR <60 mL/min/1.73 m2 for >3 months. CREATININE (test code=CREAT) 0.80 mg/dL 0.7-1.3 BUN/CREATININE RATIO (test code=BUN/CREA) 18.4 10-20 CALCIUM (test code=CA) 8.2 mg/dL 8.5-10.1 HEPATIC FUNCTION [id number] 01:50:00* Test Item Value Reference Range Comments TOTAL PROTEIN (test code=PROT) 6.1 gram/dL 6.4-8.2 ALBUMIN (test code=ALB) 3.1 g/dL 3.4-5.0 GLOBULIN (test code=GLOB) 3.0 gram/dL 2.7-4.2 ALBUMIN/GLOBULIN RATIO (test code=A/G) 1.0 0.75-1.50 BILIRUBIN TOTAL (test code=BILT) 0.30 mg/dL 0.0-1.0 BILIRUBIN DIRECT (test code=BILD) 0.13 mg/dL 0.0-0.20 SGOT/AST (test code=AST) 60 IUnit/L 15-37 SGPT/ALT (test code=ALT) 60 IUnit/L 12-78 ALKALINE PHOSPHATASE TOTAL (test code=ALKP) 120 IUnit/L 45-117 Note change in reference range due to change in reagent. [id number] 01:50:00* Test Item Value Reference Range Comments LIPASE (test code=LIP) 228 U/L 73.0-393.0 [id number] 01:50:00* Test Item Value Reference Range Comments TROPONIN-I (test code=TROPI) <0.015 ng/mL 0-0.045 [id number] 01:50:00* Test Item Value Reference Range Comments DIGOXIN (test code=DIG) 0.3 ng/mL 0.90-2.0 NOTE: Spironolactone interference may cause a decrease inreported Digoxin results of 11-30 %. [id number] 01:50:00* Test Item Value Reference Range Comments ALCOHOL (test code=ALC) 375 mg/dL 0.0-3.0 INTERPRETIVE DATA NOTE: POSITIVE SCREENING RESULTS SHOULD BE CONSIDERED PRESUMPTIVE.WHEN COLLECTED FOR MEDICAL PURPOSES ONLY. SPECIMEN WILL NOTBE COLLECTED BY CHAIN OF CUSTODY.IF A CONFIRMATION OF POSITIVE RESULTS IS DESIRED, ACONFIRMATION TEST MUST BE REQUESTED BY THE PHYSICIAN AT ANADDITIONAL CHARGE TO THE PATIENT. BASIC METABOLIC [id number] 01:17:00* Test Item Value Reference Range Comments SODIUM (test code=NA) 146 mmol/L 136-145 POTASSIUM (test code=K) 3.9 mmol/L 3.5-5.1 CHLORIDE (test code=CL) 110.0 mmol/L 98-107 CARBON DIOXIDE (test code=CO2) mmol/L 21-32 ANION GAP (test code=GAP) 10-20 GLUCOSE (test code=GLU) mg/dL 74-106 BLOOD UREA NITROGEN (test code=BUN) mg/dL 7-18 GLOMERULAR FILTRATION RATE (test code=GFR) mL/min >=60 CREATININE (test code=CREAT) mg/dL 0.7-1.3 BUN/CREATININE RATIO (test code=BUN/CREA) 10-20 CALCIUM (test code=CA) mg/dL 8.5-10.1 HEPATIC FUNCTION [id number] 01:17:00* Test Item Value Reference Range Comments TOTAL PROTEIN (test code=PROT) gram/dL 6.4-8.2 ALBUMIN (test code=ALB) g/dL 3.4-5.0 GLOBULIN (test code=GLOB) gram/dL 2.7-4.2 ALBUMIN/GLOBULIN RATIO (test code=A/G) 0.75-1.50 BILIRUBIN TOTAL (test code=BILT) mg/dL 0.0-1.0 BILIRUBIN DIRECT (test code=BILD) mg/dL 0.0-0.20 SGOT/AST (test code=AST) IUnit/L 15-37 SGPT/ALT (test code=ALT) IUnit/L 12-78 ALKALINE PHOSPHATASE TOTAL (test code=ALKP) IUnit/L 45-117 [id number] 01:17:00* Test Item Value Reference Range Comments LIPASE (test code=LIP) U/L 73.0-393.0 [id number] 01:17:00* Test Item Value Reference Range Comments TROPONIN-I (test code=TROPI) ng/mL 0-0.045 [id number] 01:17:00* Test Item Value Reference Range Comments DIGOXIN (test code=DIG) ng/mL 0.90-2.0 [id number] 01:17:00* Test Item Value Reference Range Comments ALCOHOL (test code=ALC) mg/dL 0-3 CBC W/O [id number] 01:13:00* Test Item Value Reference Range Comments WHITE BLOOD CELL (test code=WBC) 7.7 K/mm3 4.5-12.5 RED BLOOD CELL (test code=RBC) 4.67 mill/mm3 4.0-5.8 HEMOGLOBIN (test code=HGB) 15.9 gram/dL 13.0-17.5 HEMATOCRIT (test code=HCT) 46.7 % 42.0-52.0 MEAN CELL VOLUME (test code=MCV) 100.0 fL 80-98 MEAN CELL HGB (test code=MCH) 34.0 picogram 27.0-33.0 MEAN CELL HGB CONCETRATION (test code=MCHC) 34.0 gram/dL 33.0-36.0 RED CELL DISTRIBUTION WIDTH (test code=RDW) 12.9 % 11.6-16.2 PLATELET COUNT (test code=PLT) 154 K/mm3 150-450 MEAN PLATELET VOLUME (test code=MPV) 9.6 fL 6.7-11.0 - XR PELVIS 1/2 [id number] 01:13:00 FAX: Juanito Lopez MD [phone] [place]: St: [facility] FAX: Lauro Gaytan DO Name: PAOLO MCDOWELL [facility] : 1960 Age/S: 58/M [address] [facility] Unit #: [id number] Loc: [place] [address] Phys: Lauro Gaytan DO Acct: [id number] Dis Date: Status: REG ER PHONE #: [phone] Exam Date: 01/25/2019 0046 FAX #: [phone] Reason: PELVIC PAIN EXAMS: CPT CODE: [id number] XR PELVIS 1/2 VIEWS 64742 HISTORY: Male, 58 years of age with PELVIC PAIN Location code: R16 EXAM: Pelvis, one view. COMPARIS ON: Correlation made with CT abdomen and pelvis performed 10/02/2017 FINDINGS: Study is technically limited by patient's large body huerta bitus. Bones are osteopenic. Moderate to severe chronic arthritis is prese nt at both hips, left greater than right. There is no acute fracture, disl ocation, or diastasis at the SI joints or pubic symphysis. IMPRESSION: Osteopenia and DJD. No acute bony abnormalities. Elect ronically Signed by Melina Preciado MD on 01/25/2019 at 0113 Reported and signed by: Melina Preciado MD CC: Ra cynthia Fam MD; Lauro Gaytan DO Technologist: RT BUDDY Trnscrd Date/Time/By: 01/25/2019 (0113) : By: LilianaCLW Orig Print D/T: S: 01/25/2019 (0116) PAGE 1 Signed Report - XR CHEST 1 [id number] 01:10:00 FAX: Juanito Lopez MD [phone] [place]: St: REG FAX: Lauro Gaytan DO Name: PAOLO MCDOWELL [facility] : 1960 Age/S: 58/M [address] [facility] Unit #: [id number] Loc: [place] [address] Phys: Lauro Gaytan DO Acct: [id number] Dis Date: Status: REG ER PHONE #: [phone] Exam Date: 01/25/2019 0043 FAX #: [phone] Reason: CHEST PAIN EXAMS: CPT CODE: [id number] XR CHEST 1 V 16728 HISTORY: Chest pain. Location: C3 COMPARISON:09/18/2018 FINDINGS: There is mild cardiomegaly and vascular prominence. The lungs are clear of focal consolidation. No effusion, pneumothorax, or acute osseous abnormality. IMPRESSION: 1. Mild cardiomegaly. No focal consolidation. at 0110 Reported and signed by: Jose Pearce MD CC: Juanito Fam MD; Lauro Gaytan DO Technologist: RT BUDDY Trnscrd Date/Time/By: 01/25/2019 (0110) : By: [email or web address] Orig Print D/T: S: 01/25/2019 (0116) PAGE 1 Signed Report - CT C-SPINE W/O [id number] 01:02:00 Name: PAOLO MCDOWELL [facility] : 1960 Age/S: 58 / M [address] [facility] Unit #: [id number] Loc: [place] [address] Phys: Lauro Gaytan DO Acct: [id number] Dis Date: Status: REG ER PHONE #: [phone] Exam Date: 01/25/2019 0040 FAX #: [phone] Reason: Neck Pain EXAMS: CPT CODE: [id number] CT C-SPINE W/O CONTRAST 75014 HISTORY: Male, 58 years of age with Neck Pain Location code: R16 EXAM: CT SCAN OF CERVICAL SPINE WITHOUT CONTRAST COMPARISON: Previous CT c ervical spine performed 04/05/2015 TECHNIQUE: Helical axial images were obtained through the cervical spine without IV or intrathecal contras t. Axial, sagittal, and coronal multiplanar reconstructions were performe d. One or more of the following dose reduction techniques were used: Autom ated exposure control; adjustment of the mA and/or kV according to the pat ient size; and/or use of iterative reconstruction technique. FINDINGS: No acute fracture, post-traumatic subluxation or prevertebral soft tissue swelling. There is extensive diffuse spondylosis and facet gurvinder int arthropathy. Mild to moderate diffuse disc space narrowing is present. C2-3 level: No significant abnormality. C3-4 level: Moderate central canal stenosis and severe bilateral foraminal stenosis are prese nt. C4-5 level: No significant abnormality. C5-6 level: Moderate marlena tral canal stenosis and severe bilateral foraminal stenosis are present. C6-7 level: Mild central canal stenosis and severe bilateral foraminal stenosis are present. C7-T1 level: No significant abnormality. IMPRESSION: 1. No acute fracture or subluxation in the cervical spine. 2. Multilevel central canal and/or foraminal stenosis due to title checker mai disc/spur complexes and facet joint arthropathy as described above. at 0102 Reported and signed by: Melina Preciado MD CC: Juanito Fam MD; Lauro Gaytan DO Technologist:PAOLO THURMAN CT CTDI: DLP: Trnscb Date/Time: 01/25/2019 (0102) [email or web address] Orig Print D/T: S: 01/25/2019 (0105) CTDI: DLP: PAGE 1 Signed Report - CT HEAD/BRAIN W/O [id number] 00:53:00 Name: PAOLO MCDOWELL [facility] : 1960 Age/S: 58 / M [address] [facility] Unit #: [id number] Loc: [place] [address] Phys: Lauro Gaytan DO Acct: [id number] Dis Date: Status: REG ER PHONE #: [phone] Exam Date: 01/25/2019 0030 FAX #: [phone] Reason: HEADACHE EXAMS: CPT CODE: [id number] CT HEAD/BRAIN W/O CONT 68716 HISTORY: Male, 58 years of age with HEADACHE Location code: R16 EXAM: CT BRAIN WITHOUT CONTRAST COMPARISON: None. TECHNIQUE: Transaxial images were obtained through the brain without IV contrast. One or more of the following dose reduction techniques were used: Automated exposure control; adjustment of the mA and/or kV according to the patient size; and/or use of iterative reconstruction technique. FINDINGS: There is no acute intra- axial or extra-axial hemorrhage, mass, mass effect or midline shift. No acute loss of the cortical becerra/white junctions. No hydrocephalus. There is no acute calvarial fracture. The sinuses and mastoids are clear. Incidental note made of hardware in the mandible. IMPRESSION: No acute intracranial hemorrhage, infarct, or mass. at 0053 Reported and signed by: Melina Preciado MD CC: Juanito Fam MD; Lauro Gaytan DO Technologist:PAOLO CHEN CT CTDI: DLP: Trnscb Date/Time: 01/25/2019 (005 3) [email or web address] Orig Print D/T: S: 01/25/2019 (0058) C TDI: DLP: PAGE [address] BRAIN WO [facility] [address] [address] Patient Name: PAOLO MCDOWELL MR #: [id number] : 1960 Age/Sex: 57/M Req #: [id number] Adm Physician: ROBERT BOONE MD Ordered by: ADRIANO FLANNERY MD Report #: [id number] Location: MED/SURG2 Room/Bed: [facility] Procedure: 1112-[address]/CT BRAIN WO Exam Date: 09/25/17 Exam Time: 1450 REPORT STATUS: Signed History: Altered mental status Comparison s tudies: None Technique: Axial images were obtained from the skull bas e to the vertex. Coronal and sagittal reconstructions obtained from the axia l data. Findings: Scalp/skull: No abnormalities. No fractures, fortunato tic or lytic lesions. Extra-axial spaces: No masses. No fluid collectio ns. Brain sulci: Mildly prominent. Ventricles: Mild compensatory dilatati on. No hydrocephalus. Parenchyma: No abnormal densities. No masses, hemorrhage, acute or chronic cortical vascular insults. Sellar/suprasellar region: No abnormalities Craniocervical junction: Patent foramen magnum. No C hiari one malformation. IMPRESSION: 1. Mild generalized volume loss. 2. Otherwise, no abnormalities. Signed by: Dr. Elida Landeros M.D. on 09/25/2017 4:54 PM Dictated By: ELIDA LANDEROS MD, MD Electronic ally Signed By: ELIDA LANDEROS MD, MD on 09/25/171653 Transcribed By: COM HERRERA on 09/25/171653 COPY TO: ADRIANO FLANNERY MD CT CHEST WO [facility] [address] [address] Patient Name: PAOLO MCDOWELL MR #: [id number] OB: 1960 Age/Sex: 57/M Req #: [id number] Adm Physic [place]: ROBERT BOONE MD Ordered by: ADRIANO FLANNERY MD Report #: [id number] Lo cation: MED/SURG2 Room/Bed: 202 Procedure: 1112-[address]/CT CHEST WO Exam Date: 09/25/17 Exam Time: 1450 REPORT STATUS: Signed PROCEDURE: CT CHEST WITHOUT CONTRAST CT scan of the chest WITHOUT intravenous contrast, using standard protocol. TECH NIQUE: The chest was scanned utilizing a multidetector helical scanner from the apex to the level of the adrenal glands. No IV contrast was administered per protocol/per physician request). HRCT protocol was performed with oleg ges in expiration, inspiration and prone position. Coronal and sagittal mult iplanar reformations were obtained. COMPARISON: [facility], CT CHEST WO, 09/01/2017, 8:46. INDICATIONS: HRCT, SOB, PNEUMONIA, AMI ODARONE LUNG FINDINGS: Examination presented for interpretation on . Lines/tubes: Right upper extremity PICC with distal tip of the c entimeters proximal to the caval atrial junction. Lungs and Airways: There has been interval resolution of the as described patchy groundglass densities with mosaic attenuation predominantly involving the left upper lobe and li ngula. There has been interval development of patchy airspace disease with ai r bronchograms in the posterior right upper lobe is 48 series 2 suggestive of subsegmental atelectasis. Patchy airspace disease with air bronchograms in the posterior right lower lobe on image 78 series 2; it is associated with a mild elevation of the right hemidiaphragm, suggestive of atelectasis versus scarring. Mild patchy groundglass densities throughout the left lung without mosaic attenuation most consistent with atelectasis. Bilateral pleural-paren chymal densities suggestive of scarring. the No expiratory air trapping. Pleura: No pleural effusion or pneumothorax. Heart and mediastinum: The thyroid gland is normal. No significant mediastinal, hilar or axillary lymph adenopathy is seen. The heart and pericardium are within normal limits. Mild coronary artery calcifications. Soft tissues: Normal. Abdomen: Li mited views of the upper abdomen show improvement of previously present hepat ic steatosis. The adrenal glands are normal. Bones: Bilateral remote heale d fractures. Thoracic DISH. IMPRESSION: 1. interval improvement of previously described bilateral patchy ground glass densities with mosaic atte nuation. 2. Posterior right upper lobe and right lower lobe subsegmental atelectasis and/or scarring. Tyler Fuentes M.D. Dictated by: Tyler Fuentes M.D. on 09/28/2017 at 14:03 [facility] approved by: Tyler Fuentes M.D. on 09/28/2017 at 14:03 Dictated By: ROBBIE FUENTES MD, MD 1403 Transcribed By: RICHARD on 09/28/17 1403 COPY TO : ADRIANO FLANNERY MD CHEST SINGLE (PORTABLE) [place] [address] Patient Name: PAOLO MCDOWELL MR #: [id number] : 1960 Age/Sex: 57/M Req #: [id number] Adm Physician: ROBERT BOONE MD Ordered by: ADRIANO FLANNERY MD Report #: [id number] Location: MED/SURG2 Room/Bed: 202 Procedure: 1111-000 4 DX/CHEST SINGLE (PORTABLE) Exam Date: 09/24/17 Gisel mcdaniels Time: 0540 REPORT STATUS: Signed EXAMINATION: CHEST SINGLE (PORTABLE ) INDICATION: CHF COMPARISON: 09/14/2017 FIND INGS: TUBES and LINES: Right PICC line is stable in good position. LUNGS : Lungs are not well inflated. There are bibasilar atelectasis. There is p erihilar interstitial opacities, consistent with interstitial edema. PLEURA : Small bilateral pleural effusions left greater than right. HEART AND MED IASTINUM: Cardiac size is moderately enlarged. There are atherosclerotic calc ifications within the aorta. BONES AND SOFT TISSUES: No acute osseous lesi on. Soft tissues are unremarkable. UPPER ABDOMEN: No free air under the diaphragm. IMPRESSION: Recurrent cardiogenic pulmonary edema is susp ected Signed by: Dr. Aaron Latham M.D. on 09/24/2017 6:35 AM Dict ated By: AARON MOHAMUD MD Transcribed By: JOSEPH on 09/24/17634 COPY TO: ADRIANO FLANNERY MD [place] [address] Patient Name: PAOLO MCDOWELL MR #: [id number] : 1960 Age/Sex: 57/M Req #: [id number] Adm Physician: ROBERT BOONE MD Ordered by: MONSERRAT PRIDE MD Report #: [id number] Location: MED/SURG2 Room/Bed: 2021 Procedure: [id number] US/US GALLBLADDER Exam Date: 09/22/17 Exam Time: REPORT STATUS: Signed PROCEDURE: US GALLBLADDER COMPARISON: Ri ght upper quadrant ultrasound 09/10/17; MRCP 09/09/17 INDICATIONS: Abdomen P ain TECHNIQUE: Del Real-scale and color Doppler transverse and longitudinal oleg ges of the right upper quadrant of the abdomen were obtained. FINDINGS: The images are compromised due to patient's body habitus and overlying bowel gas Pancreas: Visualized portions demonstrate no evidence of mass or ducta l dilatation. Liver: Measures 19.5 cm in length. The echotexture is increased. No masses. Main portal vein: 1.4 cm. There is hepatopetal fl ow. Bile ducts: No intrahepatic biliary ductal dilatation. Gallbladd er: Present. The visualized portions demonstrate an a small amount of sludge. No evidence of gallstone, gallbladder wall thickening, or pericholecystic fl uid. Common Bile Duct: 0.4 cm. Sonographic Richardson's sign: Negative Right kidney: 12.6 cm in length. Normal echogenicity. No solid masses or hydronephrosis. Pancreas: The visualized portions are unremarkable. Visualized portions of the aorta and IVC are normal in diameter. Ascites: None in the right upper quadrant of the abdomen. CONCLUSION: H epatic steatosis and hepatomegaly. No gallbladder wall thickening or madyson cholecystic fluid. No biliary ductal dilatation. Dictated by: Naty Ocampo M.D. on 09/22/2017 at 17:34 Electronically approved by: Marilia Ocampo M.D. on 09/22/2017 at 17:34 Dictated By: MATTHEW OCAMPO MD 1734 Tra nscribed By: RICHARD on 09/22/17 173 COPY TO: MONSERRAT PRIDE MD [facility] (PORTABLE) [place] [address] Patient Name: PAOLO MCDOWELL MR #: [id number] : 1960 Age/Sex: 57/M Req #: [id number] Adm Physician: ROBERT BOONE MD Ordered by: ADRIANO FLANNERY MD Report #: [id number] Location: MED/SURG2 Room/Bed: 202 Procedure: 1107-000 5 DX/CHEST SINGLE (PORTABLE) Exam Date: 09/20/17 Gisel mcdaniels Time: 0555 REPORT STATUS: Signed EXAMINATION: CHEST SINGLE (PORTABLE ) INDICATION: Pneumonia COMPARISON: 09/15/2017 FINDINGS: TUBES and LINES: Right PICC line is stable LUNGS: Lungs are not well inflated. There are bibasilar atelectasis. There is perihilar int erstitial opacities, consistent with interstitial edema. PLEURA: Small lef t pleural effusion HEART AND MEDIASTINUM: Cardiac size is moderately enlar ged. There are atherosclerotic calcifications within the aorta. BONES AND SOFT TISSUES: No acute osseous lesion. Soft tissues are unremarkable. UPPER ABDOMEN: No free air under the diaphragm. IMPRESSION: Stable c hest with evidence of low lung volumes, central vascular congestion and pulmon imani edema/fluid overload. Small left pleural effusion Signed by: Dr. Aaron Latham M.D. on 09/20/2017 6:49 AM Dictated By: AARON MOHAMUD MD Transcri bed By: JOSEPH on 09/20/1749 COPY TO: ADRIANO FLANNERY MD CHEST SINGLE (PORTABLE) [place] [address] Patient Name: PAOLO MCDOWELL MR #: [id number] : 1960 Age/Sex: 57/M Req #: [id number] Adm Physician: ROBERT BOONE MD Ordered by: ADRIANO FLANNERY MD Report #: [id number] Location: MED/SURG2 Room/Bed: Procedure: 1102-000 1 DX/CHEST SINGLE (PORTABLE) Exam Date: Exam Time: REPORT STATUS: Signed CHEST SINGLE (PORTABLE), 09/15/2017 5:00 AM Technique: CHEST SINGLE (PORTABLE) Comparison: 09/14/2017 Clinical history: R espiratory failure Findings: Stable appearance of the cardiomediastin al silhouette, lungs, pleural spaces. Unchanged haziness over the left hemitho rax. Impression: 1. Lines/Tubes: Stable right PICC over the SVC 2. No s ignificant interval change. Signed by: Dr Guillermo Santana MD on 5:54 AM Dictated By: GUILLERMO SANTANA MD 3 Transcribed By: JOSEPH on 09/15/17553 COPY TO: ADRIANO FLANNERY MD CHEST SINGLE (PORTABLE) [place] [address] Patient Name: POALO MCDOWELL MR #: [id number] : 1960 Age/Sex: 57/M Req #: [id number] Adm Physician: ROBERT BOONE MD Ordered by: ADRIANO FLANNERY MD Report #: [id number] Lo cation: MED/SURG2 Room/Bed: Procedure: 4 DX/CHEST SINGLE (PORTABLE) Exam Date: 09/14/17 Gisel mcdaniels Time: 0700 REPORT STATUS: Signed PROCEDURE: A single AP view of the chest. COMPARISON: Portable chest 09/13/2017. INDICATIONS: SHORTN ESS OF BREATH FINDINGS: Lines/tubes: Right peripherally inserted marlena tral catheter with tip projecting over the expected region of the superior ve na cava. Lungs: Airspace opacity in the left lung base. Pleura: The re is no pleural effusion or pneumothorax. Heart and mediastinum: The hea rt and the mediastinum are unremarkable. Bones: No acute bony abnormality . Degenerative changes of the thoracic spine. IMPRESSION: Airspa ce opacity in the left lung base may represent a developing pneumonia. Dictated by: Paolo Owusu M.D. on 09/14/2017 at 8:36 Electronically appr carlos alberto by: Paolo Owusu M.D. on 09/14/2017 at 8:36 Dictated By: ANCELMO OWUSU MD 6 Transcr ibed By: RICHARD on 09/14/1737 COPY TO: ADRIANO FLANNERY MD CHEST SINGLE (PORTABLE) [place] [address] Patient Name: PAOLO MCDOWELL MR #: [id number] : 1960 Age/Sex: 57/M Req #: [id number] Adm Physician: ROBERT BOONE MD Ordered by: ADRIANO FLANNERY MD Report #: [id number] Location: MED/SURG2 Room/Bed: [facility] Procedure: 1 DX/CHEST SINGLE (PORTABLE) Exam Date: Exam Time: REPORT STATUS: Signed CHEST SINGLE (PORTABLE), 09/13/2017 5:00 AM Technique: CHEST SINGLE (PORTABLE) Comparison: 09/11/2017 Clinical history: Pneumonia Findings: Stable appearance of the cardiomediastinal silho uette, lungs, pleural spaces. Impression: Degraded by body habitus and ar tifact. 1. Lines/Tubes: Right PICC is poorly visualized on this study. 2. N o significant interval change. Signed by: Dr Guillermo Santana MD on 09/13/20 6:42 AM Dictated By: GUILLERMO SANTANA MD 1 Transcribed By: JOSEPH on 09/13/17641 COPY TO: ADRIANO FLANNERY MD CHEST XRAY LINE PLACEMENT [place] [address] Patient Name: PAOLO MCDOWELL MR #: [id number] : 1960 Age/Sex: 57/M Req #: [id number] Adm Physician: ROBERT BOONE MD Ordered by: ROBERT BOONE MD Report #: [id number] Location: [facility] Room/Bed: [place] [address] Procedure: [id number] DX /CHEST XRAY LINE PLACEMENT Exam Date: Exam Time: REPORT STATUS: Signed Examination: Single AP view of the chest. COM PARISON: September 10, 2017 INDICATION: PICC line placement DISCUSS ION: Lines/tubes: Right PICC line with tip in the mid right atrium. The di stal tip is not well visualized. Recommend retraction by 5-7 cm. Lungs: Bilateral pulmonary edema. Pleura: There is no pleural effusion or pneumot horax. Heart and mediastinum: The heart and the mediastinum are unremarkab le. Bones and soft tissues: No acute bony abnormalities. IMPRESS ION: 1. Right PICC line with tip in the mid right atrium. Recommend retr action by 5-7 cm. Signed by: Dr. Edith Nugent M.D. on 09/11/2017 9:38 AM Dictated By: EDITH NUGENT MD 7 Transcribed By: JOSEPH on 09/11/17937 COPY TO: ROBERT BOONE MD CHEST SINGLE (PORTABLE) [place] [address] Patient Name: PAOLO MCDOWELL MR #: [id number] : 1960 Age/Sex: 57/M Req #: [id number] Adm Physician: ROBERT BOONE MD Ordered by: ROBERT BOONE MD Report #: [id number] Location: [facility] Room/Bed: [place] [address] Procedure: [id number] DX /CHEST SINGLE (PORTABLE) Exam Date: 09/10/17 Exam Ti me: 1825 REPORT STATUS: Signed EXAMINATION: CHEST SINGLE (PORTABLE) INDICATION: COMPARISON: Chest radiograph from FINDINGS: AP view TUBES and LINES: PICC tip now appe ars to be at the confluence of the right subclavian and SVC. LUNGS: Lung s are well inflated. Unchanged bilateral interstitial edema. No new consoli dations. PLEURA: No pleural effusion or pneumothorax. HEART AND MEDIA STINUM: Stable enlargement of the cardiac silhouette. Mild widening mediastin um remains a stable and may relate to portable technique and mediastinal lipom atosis. BONES AND SOFT TISSUES: Mild deformity of the distal left clavicle , unchanged. Soft tissues are unremarkable. UPPER ABDOMEN: No free air u nder the diaphragm. IMPRESSION: PICC tip now appears to be at the co nfluence of the right subclavian and SVC. Recommend advancement of at least 5. 4 cm. Signed by: Dr. Nata Hernandez M.D. on 09/10/2017 6:49 PM Dictated By: NATA HERNANDEZ MD 48 Transcribed By: JOSEPH on 09/10/171848 COPY TO: ROBERT BOONE MD CHEST SINGLE (PORTABLE) [place] [address] Patient Name: PAOLO MCDOWELL MR #: [id number] : 1960 Age/Sex: 57/M Req #: [id number] Adm Physician: ROBERT BOONE MD Ordered by: ADRIANO FLANNERY MD Report #: [id number] Location: [facility] Room/Bed: [place] [address] Procedure: 1028-000 2 DX/CHEST SINGLE (PORTABLE) Exam Date: 09/10/17 Gisel Time: 05 REPORT STATUS: Signed EXAM: CHEST SINGLE (PORTABLE), AP 1 view DATE: 09/10/2017 5:00 AM Time stamp on exam: 0552 hours INDICATION: Pn eumonia COMPARISON: AP view of the chest September 09, 2017 FINDINGS: BETY ES/TUBES: Stable position of right approach PICC. LUNGS: Stable appearance of the lungs with bilateral interstitial and alveolar opacities most prominent on the left. PLEURA: No effusions or pneumothorax. HEART AND MEDIAST INUM: Stable enlargement of the cardiomediastinal silhouette. BONES AND SOF T TISSUES: No acute findings. IMPRESSION: Stable appearance of the chest . Signed by: Dr. Doug Capps M.D. on 09/10/2017 6:39 AM Dictated By: DOUG CAPPS MD 8 COPY TO: KARL FLANNERY MD US GALLBLADDER [place] [address] Patient Name: PAOLO MCDOWELL MR #: [id number] : 1960 Age/Sex: 57/M Req #: [id number] Adm Physician: ROBERT BOONE MD Ordered by: MONSERRAT PRIDE MD Report #: [id number] Location: [facility] Room/Bed: [place] [address] Procedure: [id number] US/US GALLBLADDER Exam Date: 09/10/17 Exam Time: 23 03 REPORT STATUS: Signed EXAM: US GALLBLADDER DATE: 09/10/2017 12:00 AM Time stamp on exam: 2303 hours INDICATION: Abnormal liver enzymes COMP ARISON: None TECHNIQUE: Transverse and longitudinal sonographic images of the right upper abdomen were obtained. FINDINGS: LIVER: 21.5 cm in the right midclavicular line. Increased echogenicity, normal contour, no abelino s. Main Portal Vein: Not well visualized. GALLBLADDER: Not well-visuali zed BILE DUCTS: No intra nor extra-hepatic dilation. Common bile duct n ot well visualized PANCREAS: Not well visualized RIGHT KIDNEY: 10.7 cm in length Echogenicity: Normal Collecting System: No hydronephrosis Ston es: None Cyst/Mass: None FREE FLUID: None in the right upper quadrant of the abdomen IMPRESSION: Limited evaluation of the right upper quadrant s econdary to body habitus and bowel gas. Hepatomegaly and hepatic steatosi s. Signed by: Dr. Doug Capps M.D. on 09/10/2017 11:50 PM Dic tated By: DOUG CAPPS MD 49 COPY TO: JEFFREY PRIDE MD HEPTOBILIARY W PHARM [place] [address] Patient Name: PAOLO MCDOWELL MR #: [id number] : 1960 Age/Sex: 57/M Req #: [id number] Adm Physician: ROBERT BOONE MD Ordered by: MONSERRAT PRIDE MD Report #: [id number] Location: [facility] Room/Bed: [place] [address] Procedure: [id number] NM/HEPTOBILIARY W PHARM Exam Date: 09/11/17 Exam Ti me: 0013 REPORT STATUS: Signed Hepatobiliary Scan with Gallbladder Ejec tion Fraction Clinical information: 57 M with abdominal pain and abnormal e nzymes Report: Following intravenous administration of 6.6 millicuries of T c-99m mebrofenin, dynamic images of the abdomen in the anterior projection wer e obtained through 60 minutes. Sincalide (CCK analog) 1.5 micrograms was ad ministered intravenously over 30 minutes with additional imaging for determina tion of gallbladder ejection fraction. Perfusion to the liver is normal. T he liver is enlarged. Extraction of tracer from the blood pool by the liver p arenchyma is prolonged. The gallbladder begins to fill by 32 minutes post-inj ection of tracer and fills adequately. Tracer is seen in the small bowel by 2 2 minutes. The gallbladder ejection fraction with administration of sincalide is 99% (normal greater than 40%). Impression: 1. Filling of the gal lbladder excludes the diagnosis of acute cystic duct obstruction/acute cholecy stitis. 2. Normal gallbladder ejection fraction of 99% does not support the c linical diagnosis of chronic cholecystitis/gallbladder dyskinesia. 3. Sc an evidence of hepatomegaly and impaired hepatocyte function, consistent with abnormal LFT's. Signed by: Dr. Melinda Campbell M.D. on 09/11/2017 2:17 AM Dictated By: MELINDA CAMPBELL MD 6 COPY TO: DESI PRIDE MD MRI MRCP [place] [address] Patient Name: PAOLO MCDOWELL MR #: [id number] : 1960 Age/Sex: 57/M Req #: [id number] Adm Physician: ROBERT BOONE MD Ordered by: MONSERRAT PRIDE MD Report #: [id number] Location: [facility] Room/Bed: [place] [address] Procedure: [id number] MRI/MRI MRCP [facility] Exam Date: 09/09/17 Exam Time: 1615 REPORT STATUS: Signed History: Atrial fibrillation, abdominal pain Comparison: MRI abdomen 08/31/2017, MRI abdomen with MRCP 09/01/2017. Te chnique: Multiplanar, multisequence images of the abdomen were obtained before and after the administration of 10 cc of gadolinium. 3D volume rendered ref ormation images of the biliary tree were performed. Findings: There is significant motion degradation of almost all pulse sequences. The SSFSE T2 seq uence is not motion degraded (series 4) Biliary tree: The intrahepatic and extrahepatic bile ducts are not dilated. The common bile duct measures 4 mm in diameter without evidence of filling defect. 3-D MRCP images are not diagnost ic Liver: Measures 24 cm in length and is diffusely fatty replaced. No evid ence of mass. The main portal vein measures 14 mm in diameter and is patent. Previously, the portal vein measured 9 mm in diameter. Gallbladder: Present is contracted with a small amount of pericholecystic fluid. Spleen: Khloe sures 11.5 cm in length. It is normal in signal without mass. Pancreas: Vis ualized portions are normal in signal without mass or ductal dilatation. Kidneys: No hydronephrosis or cortical mass. Adrenal glands: No evidence of mass. Lymph nodes: No enlarged abdominal or periaortic lymph nodes on t he sequences. Bowel: The stomach and visualized portions of the small b owel and large bowel are normal in diameter with normal wall thickness. Aorta: Normal in diameter. Lung bases: Small posterior pleural effusions. Soft tissues: There is subcutaneous edema in the left flank. IMPRESSIO N: 1. Once again, there is significant motion degradation. Consider evaluat ion of the abdomen with CT which will lessen motion artifact. 2. Stable h epatomegaly and abnormal hepatic signal is unchanged suggestive of severe stea tosis. New enlargement of the portal vein is consistent with portal hypertensi on. No evidence of portal vein thrombus. No splenomegaly or ascites on these i mages. 3. No biliary ductal dilatation or pancreas duct dilatation. 4. Small posterior pleural effusions. Thank you for your referral. Signed by: Dr. Matthew Ocampo MD on 09/09/2017 6:18 PM Dictated By: MATTHEW OCAMPO MD 17 COPY TO: DESI PRIDE MD CHEST [facility] (PORTABLE) [place] [address] Patient Name: PAOLO MCDOWELL MR #: [id number] : 1960 Age/Sex: 57/M Req #: [id number] Adm Physician: ROBERT BOONE MD Ordered by: ADRIANO FLANNERY MD Report #: [id number] Location: [facility] Room/Bed: [facility] 199 Procedure: 1027-000 4 DX/CHEST SINGLE (PORTABLE) Exam Date: 09/09/17 Gisel m Time: 0520 REPORT STATUS: Signed EXAM: CHEST SINGLE (PORTABLE), AP 1 view DATE: 09/09/2017 5:00 AM Time stamp on exam: 0504 hours INDICATION: Co ngestive heart failure COMPARISON: AP view of the chest September 08, 2017 FINDINGS: LINES/TUBES: Stable position of right approach PICC. LUNGS: Sta ble pulmonary edema, bibasilar atelectasis and possible superimposed pneumonia on the left. PLEURA: No effusions or pneumothorax. HEART AND MEDIAST INUM: Stable enlargement of the cardiomediastinal silhouette. BONES AND SOF T TISSUES: No acute findings. IMPRESSION: No interval change. Signed by: Dr. Doug Capps M.D. on 09/09/2017 6:24 AM Dictated By: DOUG CAPPS MD 3 Transcribed By: JOSEPH on 09/09/17623 COPY TO: ADRIANO FLANNERY MD CHEST SINGLE (PORTABLE) [place] [address] Patient Name: PAOLO MCDOWELL MR #: [id number] : 1960 Age/Sex: 57/M Req #: [id number] Adm Physician: ROBERT BOONE MD Ordered by: ADRIANO FLANNERY MD Report #: [id number] Location: [facility] Room/Bed: [facility] 199-1 Procedure: 1026-000 2 DX/CHEST SINGLE (PORTABLE) Exam Date: 09/08/17 Gisel m Time: 0505 REPORT STATUS: Signed EXAM: CHEST SINGLE (PORTABLE), AP 1 view DATE: 09/08/2017 5:00 AM Time stamp on exam: 0548 hours INDICATION: CH F COMPARISON: AP view of the chest September 07, 2017 FINDINGS: LINES/TUB ES: Stable position of right approach PICC. LUNGS: Poor visualization of th e lung secondary to motion. There is probably pulmonary edema and possibly sup erimposed infection on the left. PLEURA: Possibly pleural effusions bilate rally. HEART AND MEDIASTINUM: Stable enlargement of the cardiomediastinal s ilhouette. BONES AND SOFT TISSUES: No acute findings. IMPRESSION: L imited evaluation secondary to motion artifact and rotation. No significant interval change. Signed by: Dr. Doug Capps M.D. on 09/08/2017 7:10 AM Dictated By: DOUG CAPPS MD 9 Transcribed By: JOSEPH on 09/08/17709 COPY TO: ADRIANO FLANNERY MD CHEST SINGLE (PORTABLE) [place] [address] Patient Name: PAOLO MCDOWELL MR #: [id number] : 1960 Age/Sex: 57/M Req #: [id number] Adm Physician: ROBERT BOONE MD Ordered by: ADRIANO FLANNERY MD Report #: [id number] Location: [facility] Room/Bed: [facility] 199-1 Procedure: 1025-000 2 DX/CHEST SINGLE (PORTABLE) Exam Date: 09/07/17 Gisel m Time: 0505 REPORT STATUS: Signed EXAM: CHEST SINGLE (PORTABLE), AP 1 view DATE: 09/07/2017 5:00 AM Time stamp on exam: 0516 hours INDICATION: Co ngestive heart failure COMPARISON: CT of the chest September 01, 2017 FINDI NGS: LINES/TUBES: Stable position of right approach PICC. LUNGS: Pulmonar y edema and bibasilar atelectasis. PLEURA: No effusions or pneumothorax. HEART AND MEDIASTINUM: Enlargement of the cardiomediastinal silhouette. BONES AND SOFT TISSUES: No acute findings. IMPRESSION: Persistent pulmo nary edema. Signed by: Dr. Doug Capps M.D. on 09/07/2017 6:57 AM Dictated By: DOUG CAPPS MD 6 Transcribed By: JOSEPH on 09/07/17656 COPY TO: ADRIANO FLANNERY MD Stress Test - Treadmill ONLY [place] [address] Patient Name : PAOLO MCDOWELL MR #: [id number] : 1960 Age/Sex: 57/M Adm Physician : ROBERT BOONE MD Admit Date : 08/25/17 Location : MED/SURG2 Room/Bed : [facility] REPORT: Cardiology Rep ort DATE OF STUDY: 2017 LEXISCAN NUCLEAR STRESS TEST DESCRIPTION OF PROCEDURE: The resting and stress portion of the test was performed by Dr. Frazier. After informed consent, the patient was brought to the stress lab. He was given 10.7 millicuries of technetium 99 Myoview, and myocardial perfusion SPECT images were obtained in horizontal long and short axis and vertical long axis views. Subsequently, the patient was given 0.4 mg of Lexiscan over 10 seconds. Patient was given 27 millicuries of techneti um 99 Myoview, and myocardial perfusion SPECT images obtained in horizontal l jolanta and short and vertical long axis views. Gated images were also obtained. Patient tolerated the procedure without any complications. REPORT: Basel ine EKG shows atrial fibrillation at 99 beats per minute, normal axis, normal intervals. ST depression in I, II, aVL, V4 to V6. PARAMETERS 1. Resting heart rate 107 beats. 2. Maximal heart rate 114 beats per minute. 3. Resting blood pressure is 80/60 mmHg. 4. Maximum blood pressure is 116/58 mmHg. REASON FOR TERMINATION: End point attained. INTERPRETATION 1. Negative chest pain. 2. Negative for arrhythmias. 3. Blood pressure response co nsistent with Lexiscan. 4. More prominent ST depression noted in the lateral leads with Lexiscan infusion compared to baseline. 5. Analysis of SPECT images reveals uniform radioisotope uptake in all segments of the myocardium without any significant perfusion defects. CONCLUSIONS 1. No evidence of significant ischemia or infarction on this study. 2. No wall motion abnormal ities. 3. Overall ejection fraction is 74%. 13 :16 Job#: [id number] cc: TODD FRAZIER MD Signature Date Dictated By: JE HARMON MD Transcribed By: [employer] on 09/07/17 <Electronically signed by JE HARMON MD><<Signature on File>>09/19/17 5889 COPY TO: CHEST SINGLE (PORTABLE) [place] [id number] Patient Name: PAOLO MCDOWELL MR #: [id number] : 1960 Age/Sex: 57/M Req #: [id number] Adm Physician: ROBERT BOONE MD Ordered by: ADRIANO FLANNERY MD Report #: [id number] Lo cation: [facility] Room/Bed: [facility] 199-1 Procedure: 1024-000 2 DX/CHEST SINGLE (PORTABLE) Exam Date: 09/06/17 Gisel mcdaniels Time: 0505 REPORT STATUS: Signed EXAM: CHEST SINGLE (PORTABLE), AP 1 view DATE: 2017 5:00 AM Time stamp on exam: 0512 hours INDICATION: Co ngestive heart failure COMPARISON: AP view of the chest August 31, 2017 FINDINGS: LINES/TUBES: Stable position of right approach PICC. LUNGS: Wor sening pulmonary edema. Bibasilar atelectasis. PLEURA: Probable small bila teral pleural effusions. HEART AND MEDIASTINUM: Low inspiration with enlarg ement of the cardiomediastinal silhouette. BONES AND SOFT TISSUES: Bilate ral rib fractures, likely chronic. IMPRESSION: Worsening pulmonary edema . Signed by: Dr. Doug Capps M.D. on 2017 5:44 AM Dictated By: DOUG CAPPS MD 3 COPY TO: KARL FLANNERY MD MRI MRCP [place] [address] Patient Name: PAOLO MCDOWELL MR #: [id number] : 1960 Age/Sex: 56/M Req #: [id number] Adm Physician: ROBERT BOONE MD Ordered by: MONSERRAT PRIDE MD Report #: [id number] Location: [facility] Room/Bed: [facility] 199-1 Procedure: [id number] MRI/MRI MRCP WWO Exam Date: Exam Time: REPO RT STATUS: Signed History: Abdominal pain Comparison: MRI abdomen 2016. CT abdomen/pelvis 12/16/2015 Technique: Multiplanar, multisequence imag es of the abdomen were obtained before and after the administration of 10 cc o f gadolinium. 3D volume rendered reformation images of the biliary tree were performed. Findings: Images are extensively motion degraded. Bili imani tree: The intrahepatic ducts are not dilated. The visualized portion of th e common bile duct measures 4 mm. There are no intraluminal filling defects. N o focal biliary dilatation or stricture identified. The gallbladder is presen t without evidence of gallstone. No gallbladder wall thickening. Pancreas d uct: Visualized portions demonstrate no evidence of dilatation. Liver: Cody ures 25 cm in length with diffusely decreased signal suggestive of steatosis. No evidence of mass. The hepatic and portal veins are normal in diameter with out filling defects. Spleen: Normal size and signal without mass. Panc reas: Normal enhancement. The pancreas head is poorly visualized on T2 sequenc e due to extensive motion degradation. Post gadolinium sequences demonstrate n o evidence of mass. Kidneys: No hydronephrosis or defined cortical mass. Adrenal glands: No evidence of mass No intra-abdominal or retroperiton eal lymphadenopathy. The stomach and visualized portions of the small bowel an d large bowel are normal in diameter with normal wall thickness. No evide nce of free fluid. Lung bases: There is stable eventration of the right addie phragm with overlying airspace opacity either atelectasis or small foci of pne umonia. There is a small posterior layering right pleural effusion. The heart is normal in size. The esophagus is collapsed. IMPRESSION: 1. Compro mised study due to significant motion degradation 2. Hepatic steatosis and hep atomegaly. 3. No abnormalities of the biliary tree or pancreas duct on these i mages. 4. Eventration of the right diaphragm with overlying atelectasis. Small right pleural effusion. Small foci of pneumonia cannot be excluded. No evid ence of pancreas mass. Thank you for your referral. Signed b y: Dr. Matthew Ocampo MD on 09/01/2017 2:42 PM Dictated By: MATTHEW OCAMPO MD 41 Tr anscribed By: JOSEPH on 09/01/17 144 COPY TO: MONSERRAT PRIDE MD CT CHEST WO [place] [address] Patient Name: PAOLO MCDOWELL MR #: [id number] : 1960 Age/Sex: 56/M Req #: [id number] Adm Physician: ROBERT BOONE MD Ordered by: ROBERT BOONE MD Report #: [id number] Location: [facility] Room/Bed: [place] [address] Procedure: [id number] CT /CT CHEST WO Exam Date: 09/01/17 Exam Time: 0840 REPORT STATUS: Signed PROCEDURE: CT CHEST WITHOUT CONTRAST COMPARISON: Chest x-ray, 08/31/17. INDICATIONS: Shortness of breath TECHNIQUE: Axial CT images of the chest were obtained without contrast-enhancement. Suboptimal evaluation of solid organs, vessels and hilar areas without contrast. Routine protocol performed. Coronal and sagittal reformations were made available for review. RADIATION DOSE: Total DLP: 905.64 mGy*cm Estimated effective dose: (DLP x 0.014 x size factor) mSv FINDINGS: Lines and tubes: There is a right PICC extending to the mid SVC. Lungs: There are scattered areas of groundglass airspace opacity in upper and lower lobes bilaterally, more extensive on the left. There is also atelectasis at the right lung base. Pleura: There is no significant pleural fluid. No pneumothorax or pleural calcification. Heart T Mediastinum: Trachea and main bronchi are patent. Thyroid appears unremarkable. No significant mediastinal adenopathy. There are scattered mediastinal nodes measuring up to 1.5 cm in the prevas cular area and 1.2 cm in the right precarinal area, likely reactive. Heart size normal with no pericardial effusion. No abnormal dilatation of the thor acic aorta or main pulmonary artery. Upper abdomen: Included portions of the unenhanced liver and spleen shows extensive hepatic steatosis. No focal abnormalities are seen. No adrenal nodules. Musculoskeletal: No acute or suspicious bony lesion. There is extensive degenerative change in the tho racic spine with bony demineralization. There are healed bilateral rib fractu res. Superficial surrounding soft tissue show subcutaneous stranding along th e lateral right lower chest wall and upper right abdomen, possibly representi ng post traumatic change. CONCLUSION: 1. Extensive bilateral groun dglass air space opacities, more prominent on the left. Findings suggest pneu monia, possibly opportunistic or atypical. 2. Subcutaneous stranding al jolanta the right lateral lower chest and upper abdomen which may be posttraumati c. 3. Hepatic steatosis. Dictated by: Shawn Suh M.D. on 09/01 at 9:48 Electronically approved by: Shawn Suh M.D. on 017 at 9:48 Dictated By: SHAWN SUH MD Electronically Sign ed By: SHAWN SUH MD on 09/01/17947 Transcribed By: RICHARD on 09/01/17947 COPY TO: ROBERT BOONE MD CHEST SINGLE (PORTABLE) [place] [address] Patient Name: PAOLO MCDOWELL MR #: [id number] : 1960 Age/Sex: 56/M Req #: [id number] Adm Physician: ROBERT BOONE MD Ordered by: TODD FRAZIER MD Report #: [id number] Location: [facility] Room/Bed: [address] Procedure: [id number] DX/CHEST SINGLE (PORTABLE) Exam Date: 08/31/17 Exam Time: 1310 REPORT STATUS: Signed PROCEDURE: A single AP view of the c hest. COMPARISON: Portable chest 08/28/2017. INDICATIONS: SHORTNES S OF BREATH FINDINGS: Lines/tubes: Right peripherally inserted centr al venous catheter with tip projecting over the expected region of the superi or vena cava. Lungs: Left lung base air space opacities. Right lung base a telectasis. No parenchymal mass. Pleura: There is no pleural effusion or pneumothorax. Heart and mediastinum: The heart and the mediastinum are unremarkable. Atherosclerotic calcifications. Bones: No acute bony ab normality. Degenerative changes of the thoracic spine. IMPRESSION: No acute radiographic abnormality. Dictated by: Paolo Owusu M.D. on at 14:09 Electronically approved by: Paolo Owusu M.D. on 08/14 at 14:09 Dictated By: PAOLO OWUSU MD Electronically S igned By: PAOLO OWUSU MD on 08/31/17 1409 Transcribed By: RICHARD on 08/31/17 140 9 COPY TO: TODD FRAZIER MD MRI ABDOMEN [place] [address] Patient Name: PAOLO MCDOWELL MR #: [id number] : 1960 Age/Sex: 56/M Req #: [id number] Adm Physician: ROBERT BOONE MD Ordered by: ROBERT BOONE MD Report #: [id number] Location: [facility] Room/Bed: [place] [address] Procedure: [id number] MR I/MRI ABDOMEN WO Exam Date: 08/31/17 Exam Time: 1200 REPORT STATUS: Signed EXAM: MRI of the abdomen without contrast. INDICATION: Hyperbilirubinemia. COMPARISON: None. Correlation with CT abdomen dated 12/16/2015. TECHNIQUE: Multiplanar and multisequence imaging wa s performed of the abdomen. T1 and T2-weighted images were obtained with and w ithout contrast. Discussion: Lack of intravenous contrast limits sensitivi ty for detection of focal parenchymal lesions. Image limitation by breathing m otion artifact in multiple sequences. LOWER THORAX: Unremarkable. HEPATOBILIARY: The liver measures 25.0 cm in craniocaudal dimension. Marked diffuse decrease in signal intensity of the hepatic parenchyma on the T1-weigh eduardo out of phase scans, consistent with steatosis. No focal hepatic lesions wi thin the limitations of the study. No biliary ductal dilation. GALLBLADDER : No radio-opaque stones or sludge. No wall thickening. SPLEEN: No splenom egaly. PANCREAS: No focal masses or ductal dilatation. ADRENALS: No adrenal nodules KIDNEYS/URETERS: Kidneys enhance symmetrically. No hy dronephrosis. No cystic or solid mass lesions. No stones. GI TRACT: No a bnormal distention. LYMPH NODES: No lymphadenopathy. VESSELS: Unremark able. PERITONEUM / RETROPERITONEUM: No free air or fluid. BONES: Unrem arkable. SOFT TISSUES: Unremarkable. IMPRESSION: 1. Hepatomegaly an d hepatic steatosis. Signed by: Dr. Tyler Fuentes M.D. on 2016 1:10 PM Dictated By: ROBBIE FUENTES MD, MD 1310 Transcribed By: JOSEPH on 08/31/17 1310 COPY TO: ROBERT BOONE MD RENAL RETROPERITONEAL COMP [place] [address] Patient Name: PAOLO MCDOWELL MR #: [id number] : 1960 Age/Sex: 56/M Req #: [id number] Adm Physician: ROBERT BOONE MD Ordered by: CORNELIUS CHOW MD Report #: [id number] Location: [facility] Room/Bed: [place] [address] Procedure: [id number] US/ US RENAL RETROPERITONEAL COMP Exam Date: Exam Time: REPORT STATUS: Signed PROCEDURE: US RETROPERITONEAL ( KIDNEY ). C OMPARISON: Liver ultrasound 08/25/2017. Abdominal ultrasound 07/05/2016. I NDICATIONS: ATRIAL FIBRILLATION TECHNIQUE: Del Real-scale and color sonographic images of the bilateral kidneys and bladder where obtained in transverse and longitudinal planes. FINDINGS: RIGHT KIDNEY: 9.5 x 6.5 x 7.4 c m, cortex 1.5 cm (limited) Cysts: None Solid masses: None Stones: None H ydronephrosis: None Echogenicity: Normal LEFT KIDNEY: 11.2 x 5.2 x 6.0 c m, cortex 1.6 cm Cysts: None Solid masses: None Stones: None Hydronephro sis: None Echogenicity: Normal Bladder: Decompressed with Silva catheter . CONCLUSION: Unremarkable kidneys Dictated by: Juanjose quintero M.D. on 08/30/2017 at 16:10 Electronically approved by: Juanjose Albert M.D. on 08/30/2017 at 16:10 Dictated By: JUANJOSE ALBERT MD Electronically S igned By: JUANJOSE ALBERT MD on 08/30/171609 Transcribed By: RICHARD on 08/30/171609 COPY TO: CORNELIUS CHOW MD CHEST XRAY LINE PLACEMENT [place] [address] Patient Name: PAOLO MCDOWELL MR #: [id number] : 1960 Age/Sex: 56/M Req #: [id number] Adm Physician: ORBERT BOONE MD Ordered by: CORNELIUS CHOW MD Report #: [id number] Location: ICU Room/Bed: ICU 194 Procedure: [id number] DX/CH EST XRAY LINE PLACEMENT Exam Date: 08/28/17 Exam Santos e: 1445 REPORT STATUS: Signed Examination: Single AP view of the chest. COMPARISON: Single AP chest 08/28/2017 INDICATION: Line placement IMPRESSION: 1. Lines and Tubes: Interval placement of right-sided P ICC line, with distal tip projecting in the distal SVC. 2. Otherwise, no si gnificant interval change. Signed by: Dr. Jesus Xie M.D. on 2016 3:07 PM Dictated By: JESUS XIE MD 06 Transcribed By: JOSEPH on 08/28/171506 COPY TO: CORNELIUS CHOW MD CHEST SINGLE (PORTABLE) [place] [address] Patient Name: PAOLO MCDOWELL MR #: [id number] : 1960 Age/Sex: 56/M Req #: [id number] Adm Physician: ROBERT BOONE MD Ordered by: HENNA SAWYER MD Report #: [id number] Location: ICU Room/Bed: ICU 194 Procedure: [id number] D X/CHEST SINGLE (PORTABLE) Exam Date: Exam Time: REPORT STATUS: Signed Examination: Single AP view of the chest. COMP ARISON: Portable chest 08/26/2017 INDICATION: Shortness of breath for a few days IMPRESSION: 1. Lines and Tubes: None 2. Lungs are well- inflated. Minimal right basal atelectatic changes associated with stable event ration of the right hemidiaphragm. No consolidation or effusion. 3. Stable enlargement of the cardiac silhouette . Mild central pulmonary venous congest ion. 4. No acute bony abnormalities. Signed by: Pola Hyde on 08/28/2017 7:55 AM Dictated By: JESUS XIE MD Transcribed By: JOSEPH on 754 COPY TO: HENNA SAWYER MD CHEST SINGLE (PORTABLE) [place] [address] Patient Name: PAOLO MCDOWELL MR #: [id number] : 1960 Age/Sex: 56/M Req #: [id number] Adm Physician: ROBERT BOONE MD Ordered by: ROBERT BOONE MD Report #: [id number] Location: ICU Room/Bed: ICU [facility] Procedure: [id number] DX/C HEST SINGLE (PORTABLE) Exam Date: 08/26/17 Exam Time : 0620 REPORT STATUS: Signed CHEST SINGLE (PORTABLE), 08/26/2017 6:11 A M Technique: CHEST SINGLE (PORTABLE) Comparison: 08/25/2017 Clinical hi story: Respiratory distress Findings: See Impression Impression: 1 . Limited by motion artifact. 2. Enlarged cardiomediastinal silhouette, presum ably positional/technical. 3. No definite consolidation seen. 4. Elevated ri ght hemidiaphragm with possible small right effusion. Signed by: Dr Guillermo ryan MD on 08/26/2017 6:45 AM Dictated By: GUILLERMO SANTANA MD Electro nically Signed By: GUILLERMO SANTANA MD on 08/26/17644 Transcribed By: JOSEPH on 08/26/17644 COPY TO: ROBERT BOONE MD CHEST SINGLE (PORTABLE) [place] [address] Patient Name: PAOLO MCDOWELL MR #: [id number] D OB: 1960 Age/Sex: 56/M Req #: [id number] Adm Physic [place]: Ordered by: JOHN FENG MD Report #: [id number] Location: ER Room/ Bed: Procedure: [id number] DX/CHEST SINGLE (PORTABLE) Exam Date: 08/25/17 Exam Time: 1140 REPORT STA TUS: Signed PROCEDURE: CHEST SINGLE (PORTABLE) TECHNIQUE: Portable AP c hest INDICATION: Mid chest pain with A. fib COMPARISON: [facility], DX, CHEST SINGLE (PORTABLE), 07/05/2016, 5:33. FINDINGS: The lungs are clear and symmetrically inflated. No pleural effusions. Normal hear t size and mediastinal contour, with mild aortic tortuosity. Normal central v asculature. Intact skeleton. CONCLUSION: No acute abnormality or int erval change from June 2016. Dictated by: Yamel Donaldson on 08/25/2017 at 12:00 Electronically approved by: Yamel dong M.D. on 08/25/2017 at 12:00 Dictated By: YAMEL KENNEDY MD 99 Transcribed By: Leland CHAUDHARI on 08/25/171199 COPY TO: JOHN FENG MD LIVER [place] [address] Patient Name: PAOLO MCDOWELL MR #: [id number] : 1960 Age/Sex: 56/M Req #: [id number] Adm Physician: ROBERT BOONE MD Ordered by: JOHN FENG MD Report #: [id number] Location: [facility] Room/Bed: [place] [address] Procedure: [id number] U S/US LIVER Exam Date: 08/25/17 Exam Time: 1859 REPORT STATUS: Signed Exam: Liver ultrasound History: Elevated enzymes Comparison: None available Findings: Liver is enlarged measuring 26.8 cm. Portal vein not visualized. Limited study due to the patient's body habitu s. Right kidney is not visualized. Gallbladder is not adequately visualized. Impression: Hepatomegaly with a limited study. Signed by: Dr. Pierre Kelley DO on 08/25/2017 7:36 PM Dictated By: MERCEDEZ KELLEY DO Kim ctronically Signed By: MERCEDEZ KELLEY DO on 08/25/171935 Transcribed By: JOSHUA Quintero on 08/25/171935 COPY TO: JOHN FENG MD
[2019-04-02] MEDS ORDERED: HYDROCODONE/APAP 5MG-325MG TAB PO ONE (10:45)
--- NOTE | 2019-04-02 11:00 | NUR ---
PATIENT INCONTINENT OF BOWEL MOVEMENT. CLEANED UP
--- NOTE | 2019-04-02 11:59 | Diagnostic Imaging Report ---
Exam: Right knee radiographs-3 views; right ankle radiographs-2 views; right foot radiographs-3 views History: Status post fall. Comparison: None. Findings: Right knee: No evidence of acute fracture, malalignment, or soft tissue abnormality. No suprapatellar joint effusion. Right ankle: There is soft tissue edema in the lateral greater than medial ankle. There is a minimally displaced comminuted fracture of the distal fibula. Adjacent small bony fragments likely reflect avulsion injury. The distal tibia is unremarkable. The ankle mortise is preserved. Right foot: No evidence of acute fracture or malalignment. There is a plantar calcaneal spur. Impression: Minimally displaced fracture of the lateral malleolus, consistent with inversion injury. Ankle mortise is preserved. No acute radiographic abnormality in the right knee or foot. Signed by: Dr. Wing Blanchard MD on 04/02/2019 11:55 AM
--- NOTE | 2019-04-02 12:04 | NUR ---
CALLED RADIOLOGY FOR DISC
--- NOTE | 2019-04-02 12:19 | NUR ---
PATIENT TO ROOM 11
[2019-04-02 13:41] VITALS: BP 142/88
== END 2019-04-02 13:45 | disposition home or self-care (01) ==
LOC: ER 10:22
DX: S82.61XA Displaced fracture of lateral malleolus of right fibula, initial encounter for closed fracture (principal); M25.561 Pain in right knee; W01.0XXA Fall on same level from slipping, tripping and stumbling without subsequent striking against object, initial encounter; Y92.008 Other place in unspecified non-institutional (private) residence as the place of occurrence of the external cause
CPT/HCPCS: 99283

== ENCOUNTER 2019-05-09 06:25 | Inpatient (IN) | payer OTHER ==
[~2019-05-09] VITALS: Ht 188 cm; Wt 125.6 kg
--- OUTSIDE RECORDS SUMMARY | 2019-05-09 06:30 | XMS REPORT | Clinical Summary ---
Author Author [facility] Organization [employer] Address Unknown Phone Unavailable Care Team Providers Care Insights Manager Name Role Phone Juanito Fam MD PCP [...] (Primary Dx); Alcoholic intoxication without complication 05/30/2018 [facility] General Internal Medicine - Encounter 06/01/2018 after 05/08/2018 Social History Date Tobacco Use Types Packs/Day [...] Health Maintenance Due Date Last Done Comments COLONOSCOPY SCREENING 2010 SHINGLES VACCINES (#1) 2010 INFLUENZA [...] MMODE SPECTRAL 8:28 AM CDT COLOR DOPPLER ([id number]) LIPID PANEL Routine 08/29/2018 6:00 AM CDT [...] PRELIMINARY Routine 08/28/2018 INTERPRETATION 11:46 PM CDT [facility], ADDL 30 Routine 08/28/2018 MIN 11:46 PM CDT [place] [facility], E/M Routine 08/28/2018 30-74 MINUTES [...] PRELIMINARY Routine 06/19/2018 INTERPRETATION 6:19 PM CDT [place] CRITICAL CARE, E/M Routine 06/19/2018 30-74 MINUTES 6:19 PM CDT [place] RESUPERF WND BODY Routine 06/19/2018 7.6-12.5 CM [...] ECG 12-LEAD STAT 06/16/2018 1:45 AM CDT [place] APPLY LONG ARM SPLINT Routine 06/16/2018 1:39 [...] MMODE SPECTRAL 8:12 AM CDT COLOR DOPPLER ([id number]) LIPID PANEL Routine 05/31/2018 4:17 AM CDT [...] PRELIMINARY Routine 05/30/2018 INTERPRETATION 4:33 PM CDT [place] CRITICAL CARE, E/M Routine 05/30/2018 30-74 MINUTES 4:33 PM CDT ECG 12-LEAD STAT 05/30/2018 4:32 PM CDT after 05/08/2018 Results * Estimated GFR (08/31/2018 4:18 AM CDT) Only the most recent of 4 results within the time period is included. Pathologist [facility] Estimated GFR >=90 mL/min/1.73 m2 [facility] Comment: OF PATHOLOGY CatergoryUnitsInte AND GENOMIC rpretation MEDICINE G1 >=90 Normal or high G2 60-89Mildly decreased [id number] Mildly to moderately decreased [id number] Moderately to severely decreased G4 15-29Severely decreased G5 <15Kidney failure The eGFR was calculated using the Chronic Kidney Disease Epidemiology Collaboration (CKD-EPI) equation. Interpretation is based on recommendations of the National Kidney Foundation-Kidney Disease Outcomes Quality Initiative (NKF-KDOQI) published in 2014. Specimen Plasma specimen Performing Organization Address City/State/Zipcode Phone Number [place] [id number] [place] [address] PATHOLOGY AND [employer] [facility] * CBC with platelet and differential (08/31/2018 4:18 AM CDT) Only the most recent of 9 results within the time period is included. Pathologist [facility] WBC 8.7 4.2 - 11.0 k/uL [facility] OF PATHOLOGY AND GENOMIC MEDICINE RBC 4.63 4.04 - 5.86 m/uL [facility] PATHOLOGY AND GENOMIC MEDICINE HGB 14.9 13.0 - 17.3 g/dL [facility] PATHOLOGY AND GENOMIC MEDICINE HCT 45.5 (H) 34.0 - 45.0 % [facility] PATHOLOGY AND GENOMIC MEDICINE MCV 98.3 (H) 80.0 - 98.0 fL [facility] OF PATHOLOGY AND GENOMIC MEDICINE MCH 32.2 27.0 - 34.0 pg [facility] OF PATHOLOGY AND GENOMIC MEDICINE MCHC 32.7 31.5 - 36.5 g/dL [facility] OF PATHOLOGY AND GENOMIC MEDICINE RDW - SD 46.9 37.0 - 51.0 fL [facility] OF PATHOLOGY AND GENOMIC MEDICINE MPV 9.4 7.4 - 10.4 fL [facility] OF PATHOLOGY AND GENOMIC MEDICINE Platelet count 245 150 - 400 k/uL [facility] OF PATHOLOGY AND GENOMIC MEDICINE Nucleated RBC 0.00 /100 WBC [facility] OF PATHOLOGY AND GENOMIC MEDICINE Neutrophils 61.2 36.0 - 66.0 % [facility] OF PATHOLOGY AND GENOMIC MEDICINE Lymphocytes 25.8 24.0 - 44.0 % [facility] OF PATHOLOGY AND GENOMIC MEDICINE Monocytes 10.1 (H) 0.0 - 6.0 % [facility] OF PATHOLOGY AND GENOMIC MEDICINE Eosinophils 1.7 0.0 - 6.0 % [facility] OF PATHOLOGY AND GENOMIC MEDICINE Basophils 0.5 0.0 - 1.2 % [facility] OF PATHOLOGY AND GENOMIC MEDICINE Immature 0.7 0.0 - 1.0 % [facility] granulocytes OF PATHOLOGY AND GENOMIC MEDICINE Specimen Blood Performing Organization Address City/[facility] Phone Number [address] [place] [address] PATHOLOGY AND [facility] MEDICINE * Basic metabolic panel (08/31/2018 4:18 AM CDT) Only the most recent of 3 results within the time period is included. Pathologist [facility] Sodium 137 135 - 150 mEq/L [facility] OF PATHOLOGY AND GENOMIC MEDICINE Potassium 4.4 3.5 - 5.0 mEq/L [facility] OF PATHOLOGY AND GENOMIC MEDICINE Chloride 102 98 - 112 mEq/L [facility] OF PATHOLOGY AND GENOMIC MEDICINE CO2 26 24 - 31 mmol/L [facility] OF PATHOLOGY AND GENOMIC MEDICINE Anion gap 9@ANIO 7 - 15 mEq/L [facility] OF PATHOLOGY AND GENOMIC MEDICINE BUN 19 (H) 7 - 18 mg/dL [facility] OF PATHOLOGY AND GENOMIC MEDICINE Creatinine 0.80 0.70 - 1.20 mg/dL [facility] OF PATHOLOGY AND GENOMIC MEDICINE Glucose 115 (H) 65 - 100 mg/dL [facility] OF PATHOLOGY AND GENOMIC MEDICINE Calcium 9.3 8.3 - 10.2 mg/dL [facility] OF PATHOLOGY AND GENOMIC MEDICINE Specimen Plasma specimen Performing Organization Address City/[facility] Phone Number [address] [place] [address] PATHOLOGY AND [facility] * Urine drugs of abuse screen (08/30/2018 8:49 PM CDT) Amphetamine Negative [facility] screen, urine OF PATHOLOGY AND GENOMIC MEDICINE Barbiturate Negative [facility] screen, urine OF PATHOLOGY AND GENOMIC MEDICINE Benzodiazepine Negative [facility], urine OF PATHOLOGY AND GENOMIC MEDICINE Cannabinoid Negative [facility] screen, urine OF PATHOLOGY AND GENOMIC MEDICINE Cocaine screen, Negative [facility] urine OF PATHOLOGY AND GENOMIC MEDICINE Methadone Negative [facility] metabolite OF PATHOLOGY (EDDP), urine AND GENOMIC MEDICINE Opiates screen, Negative [facility] urine OF PATHOLOGY AND GENOMIC MEDICINE Phencyclidine Negative [facility] screen, urine OF PATHOLOGY AND GENOMIC MEDICINE Specimen Urine Performing Organization Address City/[facility]/Zipcode Phone Number [facility] [address] [place] [address] PATHOLOGY AND [facility] * Urinalysis, automated with microscopy (08/30/2018 8:49 PM CDT) Color, UA Yellow [facility] OF PATHOLOGY AND GENOMIC MEDICINE Appearance, UA Clear [facility] OF PATHOLOGY AND GENOMIC MEDICINE Specific 1.017 1.001 - 1.035 [facility] gravity, OF PATHOLOGY AND GENOMIC MEDICINE pH, UA 6.0 5.0 - 8.5 [facility] OF PATHOLOGY AND GENOMIC MEDICINE Protein, UA Negative Negative [facility] OF PATHOLOGY AND GENOMIC MEDICINE Glucose, UA Negative Negative [facility] OF PATHOLOGY AND GENOMIC MEDICINE Ketones, UA Negative Negative [facility] OF PATHOLOGY AND GENOMIC MEDICINE Bilirubin, UA Negative Negative [facility] OF PATHOLOGY AND GENOMIC MEDICINE Blood, UA Negative Negative [facility] OF PATHOLOGY AND GENOMIC MEDICINE Nitrite, UA Negative Negative [facility] OF PATHOLOGY AND GENOMIC MEDICINE Urobilinogen, Negative <2.0 [facility] UA OF PATHOLOGY AND GENOMIC MEDICINE Leukocyte Negative Negative [facility] esterase, UA OF PATHOLOGY AND GENOMIC MEDICINE WBC, UA 1 0 - 1 /HPF [facility] OF PATHOLOGY AND GENOMIC MEDICINE RBC, UA 1 0 - 5 /HPF [facility] OF PATHOLOGY AND GENOMIC MEDICINE Bacteria, UA None seen None seen [facility] OF PATHOLOGY AND GENOMIC MEDICINE Yeast, UA None seen [facility] OF PATHOLOGY AND GENOMIC MEDICINE Yeast with None seen [facility] pseudohyphae, OF PATHOLOGY UA AND GENOMIC MEDICINE Specimen Urine Performing Organization Address City/[facility]/Zipcode Phone Number [facility] [address] [place] [address] PATHOLOGY AND GENOMIC MEDICINE * Echocardiogram complete [...] the aortic valve leaflets. Performing Organization Address City/[facility] Phone Number [facility] [address] [place] [address] * Troponin (08/29/2018 6:00 AM CDT) Only the most recent of 10 results within the time period is included. [facility] Troponin <0.30 0.00 - 0.30 ng/mL [facility] Comment: OF PATHOLOGY 0.11 - 1.49 AND GENOMIC ng/mlMay MEDICINE indicate increased risk of acute coronary syndrome. >=1.5 ng/ml Consistent with acute myocardial infarction. The diagnostic value of a single normal or non-diagnostic result is questionable.Serial samples at 2-6 hour intervals are required to rule out acute myocardial injury. Specimen Plasma specimen Performing Organization Address City/[facility] Phone Number [facility] OF [address] [place] [address]. [place] [address] PATHOLOGY AND [employer] MEDICINE * Magnesium level (08/29/2018 6:00 AM CDT) Only the most recent of 4 results within the time period is included. [facility] Magnesium 1.90 1.60 - 2.60 mg/dL [facility] OF PATHOLOGY AND [employer] MEDICINE Specimen Plasma specimen Performing Organization Address City/[facility] Phone Number [facility] OF [address] [place] [address]. [place] [address] PATHOLOGY AND [employer] MEDICINE * Lipid panel (08/29/2018 6:00 AM CDT) Only the most recent of 4 results within the time period is included. [facility] Cholesterol 202 (H) 0 - 199 mg/dL [facility] OF PATHOLOGY AND GENOMIC MEDICINE Triglycerides 251 (H) 0 - 149 mg/dL [facility] OF PATHOLOGY AND GENOMIC MEDICINE HDL cholesterol 39 (L) 40 - 9,999 mg/dL [facility] OF PATHOLOGY AND GENOMIC MEDICINE LDL cholesterol 140 (H)Comment: Result 0 - 99 mg/dL [facility] obtained by direct LDL OF PATHOLOGY measurement AND GENOMIC MEDICINE Lipid panel See below [facility] interpretation Comment: OF PATHOLOGY Total Cholesterol AND GENOMIC (mg/dL) MEDICINE LDL Cholesterol (mg/dL) <200 Desirable <100 Optimal 200-239Borderline -[id number] 29Near or above optimal >=240High 130-159Borderline- high [...] mg/dL) Specimen Plasma specimen Performing Organization Address City/[facility] Phone Number [facility] [address] [place] [address] PATHOLOGY AND [employer] MEDICINE * Digoxin level (08/29/2018 2:44 AM CDT) Only the most recent of 2 results within the time period is included. Digoxin <0.3 (L) 0.8 - 2.0 ng/mL [facility] Comment: OF PATHOLOGY For valid Digoxin results, at AND GENOMIC least 6 hours should elapse MEDICINE between time of last dose and collection of blood. Otherwise, result may be false high. Therapeutic Range: 0.8 - 2.0 ng/mL Specimen Blood Performing Organization Address [facility] Phone Number [place] [phone] [facility] [place] [address] PATHOLOGY AND GENOMIC MEDICINE * XR Chest [...] part to technique. No acute osseous abnormalities. [facility]-[id number] Procedure Note Hm Interface, Radiology Results Incoming - 08/29/2018 12:17 AM CDT EXAMINATION: XR CHEST 1 VW PORTABLE CLINICAL HISTORY: chest pain COMPARISON: 05/30/2018. IMPRESSION: The lungs are clear. No pleural effusion or pneumothorax. Cardiac silhouette appears prominent due in part to technique. No acute osseous abnormalities. [facility]-[id number] Performing Organization Address City/State/Zipcode Phone Number [facility] [address] [place] [address] * ECG ED Preliminary Interpretation - NOT AN ORDER (08/28/2018 11:46 PM CDT) Only the most recent of 3 results within the time period is included. Narrative Performed At Gaurav Mcdonald MD 09/01/20187:56 PM ECG ED Preliminary Interpretation - Not an Order Performed by: GAURAV MCDONALD Authorized by: GAURAV MCDONALD ECG reviewed by ED Physician in the absence of a java integration developer: yes Previous ECG: Previous ECG:Compared to current [...] results within the time period is included. [facility] BNP 82 0 - 100 pg/mL [facility] OF PATHOLOGY AND GENOMIC MEDICINE Specimen Blood Performing Organization Address City/State/Zipcode Phone Number [place] [address] [place] [address] PATHOLOGY AND [facility] * Comprehensive metabolic panel (08/28/2018 11:34 PM CDT) Only the most recent of 8 results within the time period is included. [facility] Sodium 140 135 - 150 mEq/L [facility] OF PATHOLOGY AND GENOMIC MEDICINE Potassium 5.1 (H) 3.5 - 5.0 mEq/L [facility] OF PATHOLOGY AND GENOMIC MEDICINE Chloride 103 98 - 112 mEq/L [facility] OF PATHOLOGY [facility] GENOMIC MEDICINE CO2 23 (L) 24 - 31 mmol/L [facility] OF PATHOLOGY AND GENOMIC MEDICINE Anion gap 14@ANIO 7 - 15 mEq/L [facility] OF PATHOLOGY AND GENOMIC MEDICINE BUN 13 7 - 18 mg/dL [facility] OF PATHOLOGY AND GENOMIC MEDICINE Creatinine 0.80 0.70 - 1.20 mg/dL [facility] OF PATHOLOGY AND GENOMIC MEDICINE Glucose 91 65 - 100 mg/dL [facility] OF PATHOLOGY AND GENOMIC MEDICINE Calcium 9.1 8.3 - 10.2 mg/dL [facility] OF PATHOLOGY AND GENOMIC MEDICINE Protein 7.3 6.3 - 8.3 g/dL [facility] OF PATHOLOGY AND GENOMIC MEDICINE Albumin 3.5 3.5 - 5.0 g/dL [facility] OF PATHOLOGY AND GENOMIC MEDICINE A/G ratio 0.9 0.7 - 3.8 [facility] OF PATHOLOGY AND GENOMIC MEDICINE Alkaline 134 (H) 0 - 129 U/L [facility] phosphatase OF PATHOLOGY AND GENOMIC MEDICINE AST 33 10 - 50 U/L [facility] OF PATHOLOGY AND GENOMIC MEDICINE ALT 17 5 - 50 U/L [facility] OF PATHOLOGY AND GENOMIC MEDICINE Total bilirubin 0.3 0.2 - 1.2 mg/dL [facility] OF PATHOLOGY AND GENOMIC MEDICINE Specimen Plasma specimen Performing Organization Address [facility] Phone Number [facility] [address] [facility] [place] [address] PATHOLOGY AND GENOMIC MEDICINE * ECG 12 [...] MUSE EKG impression Atrial fibrillation with rapid [facility] MUSE ventricular response-Nonspecific ST and T wave abnormality-Abnormal ECG-In automated comparison with ECG of 19-JUN-2018 18:23,-Vent. rate has increased BY75 BPM-Nonspecific T wave abnormality now evident in Lateral leads- Specimen Performing Organization Address [facility] Phone Number [facility] MUSE [address] [place] [address] * Lactic acid level (06/20/2018 5:40 AM CDT) Only the most recent of 3 results within the time period is included. [facility] Lactic acid 0.7 0.5 - 2.2 mmol/L [facility] OF PATHOLOGY AND GENOMIC MEDICINE Specimen Blood Performing Organization Address City/[facility] Phone Number [facility] OF [address] [facility] [place] [address] PATHOLOGY AND GENOMIC MEDICINE * Estimated GFR (06/20/2018 5:07 AM CDT) Only the most recent of 7 results within the time period is included. GFR Non Af Amer >90 mL/min/1.73 m2 [facility] OF PATHOLOGY AND GENOMIC MEDICINE GFR Af Amer >90 mL/min/1.73 m2 [facility] Comment: OF PATHOLOGY Chronic kidney disease: [...] Americans. Specimen Plasma specimen Performing Organization Address City/[facility] Phone Number [facility] [address] [place] [address] PATHOLOGY AND [employer] MEDICINE * Alcohol level, blood (06/20/2018 5:07 AM CDT) Only the most recent of 6 results within the time period is included. Alcohol None Detected mg/dL [facility] Comment: OF PATHOLOGY Normal AND GENOMIC None MEDICINE Detected Legal Intoxication in [place] 80 mg/dL (0.08%) Toxic Concentration 200 mg/dL (0.2%) Potentially Fatal 350-500 mg/dL (0.35%-0.5%) Alcohol percent None Detected % [facility] OF PATHOLOGY AND GENOMIC MEDICINE Specimen Blood Performing Organization Address City/[facility] Phone Number [facility] OF [address] [place] [address] PATHOLOGY AND [employer] MEDICINE * Beta hydroxybutyrate (06/19/2018 8:20 PM CDT) Beta 0.25 0.02 - 0.27 mmol/L [facility] hydroxybutyrate OF PATHOLOGY AND [employer] MEDICINE Specimen Blood Performing Organization Address City/[facility] Phone Number [place] [phone] [place] [address] PATHOLOGY AND [employer] MEDICINE * CT Head Wo Contrast (06/19/2018 [...] No CT evidence for acute intracranial abnormality. [facility]-[id number] Procedure Note Interface, Radiology Results Incoming - [...] No CT evidence for acute intracranial abnormality. [facility]-[id number] Performing Organization Address City/State/Zipcode Phone Number [facility] [address] [place] [address] * CT Cervical Spine Wo Contrast (06/19/2018 8:13 PM CDT) Specimen Narrative Performed At EXAMINATION: CT CERVICAL SPINE WO CONTRAST [facility] CLINICAL HISTORY: falletohblood thinners. COMPARISON:None TECHNIQUE: Axial [...] to severe bilateral foraminal stenosis at C5-6. [facility]-[id number] Procedure Note [facility], Radiology Results - 06/19/2018 8:26 PM CDT [...] to severe bilateral foraminal stenosis at C5-6. [facility]-[id number] Performing Organization Address City/State/Zipcode Phone Number [facility] [address] [place] [address] * Partial thromboplastin time, activated (06/19/2018 6:30 PM CDT) Only the most recent of 3 results within the time period is included. PTT 33.2 23.0 - 36.0 sec [facility] Comment: OF PATHOLOGY PTT therapeutic range for AND GENOMIC unfractionated heparin is MEDICINE 61.0-112.0 seconds which corresponds to Anti-Xa 0.3-0.7 U/ml. Note:Change in Panic Value The PTT Panic Value is changing from 110 sec. to 100 sec. due to new instrumentation and reagents. Correlation studies have been performed to validate this result. Specimen Blood Performing Organization Address [facility] Phone Number [place] [phone] [place] [address] PATHOLOGY AND GENOMIC MEDICINE * Prothrombin time with INR (06/19/2018 6:30 PM CDT) Only the most recent of 3 results within the time period is included. [facility] Prothrombin 15.6 (H) 12.0 - 15.0 sec [facility] time OF PATHOLOGY AND GENOMIC MEDICINE INR 1.22 (H) 0.92 - 1.12 [facility] Comment: OF PATHOLOGY For patients on anticoagulant AND GENOMIC therapy, reference ranges MEDICINE below: Indication: INR Value Treatment of Venous Thrombosis, 2.0-3.0 pulmonary emboli, or prophylaxis of a venous thrombosis, or systemic emboli. High dose, high risk patients 3.0-4.5 with mechanical valves. NOTE:INR values over 3.0 are sometimes associated with gastrointestinal hemorrhage, especially values over 4.0. Specimen Blood Performing Organization Address [facility] [place] [address] PATHOLOGY AND GENOMIC MEDICINE * Type and screen (06/19/2018 6:30 PM CDT) [facility] ABO grouping O [facility] OF PATHOLOGY AND GENOMIC MEDICINE Rh type NEG [facility] OF PATHOLOGY AND GENOMIC MEDICINE Antibody screen NEG [facility] (gel) OF PATHOLOGY AND GENOMIC MEDICINE Specimen Blood Performing Organization Address [facility] [place] [address] PATHOLOGY AND GENOMIC MEDICINE * POC glucose (06/19/2018 6:27 PM CDT) [facility] POC glucose 99 65 - 100 mg/dL [facility] Comment: OF PATHOLOGY Meter ID: [id number] AND GENOMIC [employer] Shovel Operator: Sylvester SANTIAGO Specimen Performing Organization Address City/[facility]/[place] [address] PATHOLOGY AND GENOMIC MEDICINE * CRITICAL CARE [...] Lactic acid 2.1 0.5 - 2.2 mmol/L [facility] OF PATHOLOGY AND GENOMIC MEDICINE Specimen Blood Performing Organization Address City/[facility] [facility] Phone Number [facility] [address] [place] [address] PATHOLOGY AND GENOMIC MEDICINE * XR Wrist [...] the wrist. The bones are slightly demineralized. [facility]-[id number] Procedure Note Hm Interface, Radiology Results Incoming [...] the wrist. The bones are slightly demineralized. [facility]-[id number] Performing Organization Address City/[facility] Phone Number [facility] [address] [place] [address] * Creatine kinase, total (CPK) (06/16/2018 2:05 AM CDT) Creatine kinase 45 39 - 308 U/L [facility] OF PATHOLOGY AND GENOMIC MEDICINE Specimen Plasma specimen Narrative Performed At [facility] to Beck Stanley/AJAY at06/16/201803:19 ln [facility] OF PATHOLOGY AND GENOMIC MEDICINE Performing Organization Address [facility] Phone Number [facility] OF [address] [place] [address] PATHOLOGY AND GENOMIC MEDICINE * SPLINT APPLICATION (06/16/2018 1:39 AM CDT) Narrative Performed At Anila Fajardo MD 06/17/2018 10:04 PM Splint Application Performed by: YENI JHA Authorized by: ANILA FAJARDO Consent: Consent obtained:Verbal Consent given by:Patient Risks discussed:Discoloration, numbness, pain and swelling Alternatives discussed:Referral Pre-procedure details: Sensation:Normal Skin color:[place] Procedure details: Laterality:Left Location:Wrist Wrist:L wrist Cast type:Short arm Splint type:Sugar tong Supplies:Cotton padding, Ortho-Glass and sling Post-procedure details: Pain:Improved Sensation:Normal Skin color:[place] Patient tolerance of procedure:Tolerated well, no immediate complications * Phosphorus level (06/01/2018 7:12 AM CDT) Only the most recent of 3 results within the time period is included. [facility] Phosphorus 3.9 2.4 - 4.5 mg/dL [facility] OF PATHOLOGY AND GENOMIC MEDICINE Specimen Plasma specimen Performing Organization Address [facility] Phone Number [facility] OF [address] [place] [address] PATHOLOGY AND GENOMIC MEDICINE * Gram stain only (05/31/2018 11:00 PM CDT) [facility] Gram stain Few WBC's [facility] DEPARTMENT result Few Gram positive rods OF PATHOLOGY Occasional Gram positive AND GENOMIC cocciin chains MEDICINE Comment: Specimen Information Specimen Source: Urine Specimen Site: Clean catch Specimen Urine Performing Organization Address [facility] Phone Number [facility] [place] [place] [address], [address] [place] [address] PATHOLOGY AND GENOMIC MEDICINE * Urinalysis screen and microscopy, with reflex to culture (05/31/2018 11:00 PM CDT) Specimen site Clean catch [facility] OF PATHOLOGY AND GENOMIC MEDICINE Color, UA Yellow [facility] OF PATHOLOGY AND GENOMIC MEDICINE Appearance, UA Clear [facility] OF PATHOLOGY AND GENOMIC MEDICINE Specific 1.019 1.001 - 1.035 [facility] gravity, UA OF PATHOLOGY AND GENOMIC MEDICINE pH, UA 7.0 5.0 - 8.5 [facility] OF PATHOLOGY AND GENOMIC MEDICINE Protein, UA Negative Negative [facility] OF PATHOLOGY AND GENOMIC MEDICINE Glucose, UA Negative Negative [facility] OF PATHOLOGY AND GENOMIC MEDICINE Ketones, UA Negative Negative [facility] OF PATHOLOGY AND GENOMIC MEDICINE Bilirubin, UA Negative Negative [facility] OF PATHOLOGY AND GENOMIC MEDICINE Blood, UA Negative Negative [facility] OF PATHOLOGY AND GENOMIC MEDICINE Nitrite, UA Negative Negative [facility] OF PATHOLOGY AND GENOMIC MEDICINE Urobilinogen, 2.0 (A) <2.0 [facility] UA OF PATHOLOGY AND GENOMIC MEDICINE Leukocyte Small (A) Negative [facility] esterase, UA OF PATHOLOGY AND GENOMIC MEDICINE Epithelial Moderate /HPF [facility] cells, UA OF PATHOLOGY AND GENOMIC MEDICINE WBC, UA 3 (H) 0 - 1 /HPF [facility] OF PATHOLOGY AND GENOMIC MEDICINE RBC, UA 2 0 - 5 /HPF [facility] OF PATHOLOGY AND GENOMIC MEDICINE Bacteria, UA Trace None seen [facility] OF PATHOLOGY AND GENOMIC MEDICINE Yeast, UA None seen [facility] OF PATHOLOGY AND GENOMIC MEDICINE Yeast with None seen [facility] pseudohyphae, OF PATHOLOGY UA AND GENOMIC MEDICINE Specimen Urine Performing Organization Address City/State/Zipcode Phone Number [facility] OF [address] [place] [address] PATHOLOGY AND GENOMIC MEDICINE * Urine culture (05/31/2018 11:00 PM CDT) Pathologist [facility] Urine culture Mixed Gram positive cole [facility] DEPARTMENT isolate 10-5 cfu/ml OF PATHOLOGY (A) AND GENOMIC Comment: MEDICINE Specimen Information Specimen Source: Urine Specimen Site: Clean catch Specimen Urine Performing Organization Address City/State/Zipcode Phone Number [facility] DEPARTMENT OF [address] [place] [address] PATHOLOGY AND GENOMIC MEDICINE * Echocardiogram complete [...] the aortic valve leaflets. Performing Organization Address City/[facility]/Zipcode Phone Number [facility] [address] [place] [address] * T3, free (05/31/2018 4:17 AM CDT) T3, free 2.81 2.18 - 3.98 pmol/L [facility] OF PATHOLOGY AND GENOMIC MEDICINE Specimen Plasma specimen Performing Organization Address [facility] [place] [address] PATHOLOGY AND [facility] MEDICINE * Thyroid stimulating hormone (05/31/2018 4:17 AM CDT) Only the most recent of 2 results within the time period is included. TSH 1.54 0.27 - 4.20 uIU/mL [facility] OF PATHOLOGY AND GENOMIC MEDICINE Specimen Plasma specimen Performing Organization Address [facility] [place] [address] PATHOLOGY AND [facility] MEDICINE * Hemoglobin A1c (05/31/2018 4:17 AM CDT) Hemoglobin A1C 5.5 4.0 - 6.0 % [facility] Comment: OF PATHOLOGY AND GENOMIC MEDICINE Less than 6% - Goal of therapy for Type II Diabetes Less than 7%-Goal of therapy for Type I Diabetes Less than 8%-Accepta ble control for Type I or Type II Diabetes Greater than 8%-Unacceptabl e control; action indicated. ([id number]) Specimen Blood Performing Organization Address City/State/Zipcode Phone Number [facility] OF [address] [place] [address] PATHOLOGY AND GENOMIC MEDICINE * Bilirubin direct (05/30/2018 5:04 PM CDT) Bilirubin <0.2 0.0 - 0.4 mg/dL [facility] direct OF PATHOLOGY AND GENOMIC MEDICINE Specimen Plasma specimen Performing Organization Address City/State/Zipcode Phone Number [facility] OF [address] [place] [address] PATHOLOGY AND GENOMIC MEDICINE * CRITICAL CARE [...] this patient from another provider.: no after 05/08/2018 Insurance Type Payer Benefit Subscriber ID Effective Phone Address Plan / Dates Group [facility] MEDICAID [facility] xxxxxxxxx [id number] [employer]+ resent [facility] Guarantor Name Account Relation to Date of Phone Billing Address Type Patient Melvin Chapman Personal/F Self 1960 [id number] (Home) [place] [address] Advance Directives Patient has advance care planning documents, and code status on file. For more i nformation, please contact: Evangelist Nava [address] [place] [address] Date Inactivated Comments Code Status Date Activated 11/02/2017 7:56 PM Full Code 10/28/2017 11:24 PM Code Status decision reached by: Patient
[2019-05-09] MEDS ORDERED: DIATRIZOATE MEGL/DIATRIZOA SOD 30 ML BTL PO ONE (06:47)
[2019-05-09 06:55] LABS: BASOPHILS # (AUTO) 0.1 (0.0-0.1); BASOPHILS % 0.5 % (0.0-1.0); EOSINOPHILS # (AUTO) 0.2 (0.0-0.4); EOSINOPHILS % 1.7 % (0.0-6.0); HEMATOCRIT 47.4 % (38.2-49.6); HEMOGLOBIN 16.4 g/dL (14.0-18.0); LYMPHOCYTES # (AUTO) 2.6 (1.0-3.2); LYMPHOCYTES % 27.4 % (18.0-39.1); MEAN CORPUSCULAR HEMOGLOBIN 34.8 pg (28-32); MEAN CORPUSCULAR HGB CONC 34.6 g/dL (31-35); MEAN CORPUSCULAR VOLUME 100.6 fL (81-99); MONOCYTES # (AUTO) 0.9 (0.2-0.8); MONOCYTES % 9.3 % (4.4-11.3); NEUTROPHILS # (AUTO) 5.7 (2.1-6.9); NEUTROPHILS % 60.6 % (38.7-80.0); PLATELET COUNT 275 x10e3/uL (140-360); RED BLOOD COUNT 4.71 x10e6/uL (4.3-5.7); RED CELL DISTRIBUTION WIDTH 13.7 % (11.7-14.4)
[2019-05-09 07:07] LABS: INR 0.82; PROTHROMBIN TIME 11.8 seconds (11.9-14.5)
[2019-05-09 07:08] LABS: PARTIAL THROMBOPLASTIN TIME 27.1 seconds (23.8-35.5)
[2019-05-09 07:17] LABS: ALANINE AMINOTRANSFERASE 11 IU/L (0-55); ALBUMIN/GLOBULIN RATIO 1.2 (0.8-2.0); ALKALINE PHOSPHATASE 111 IU/L (40-150); AMYLASE 35 U/L (25-125); ANION GAP 14.5 mmol/L (8-16); BLOOD UREA NITROGEN 11 mg/dL (7-26); BUN/CREATININE RATIO 13 (6-25); CARBON DIOXIDE 26 mmol/L (22-29); CHLORIDE 101 mmol/L (98-107); CREATININE, SERUM 0.82 mg/dL (0.72-1.25); EST GLOMERULAR FILTRATION RATE > 60 ML/MIN (60-); GLUCOSE 140 mg/dL (74-118); LIPASE 26 U/L (8-78); POTASSIUM 3.5 mmol/L (3.5-5.1); SODIUM 138 mmol/L (136-145)
[2019-05-09 07:23] LABS: CREATINE KINASE MB 1.1 ng/mL (0-5.0)
[2019-05-09 07:26] LABS: CALCIUM 8.7 mg/dL (8.4-10.2)
[2019-05-09 08:02] LABS: BILIRUBIN,URINE NEGATIVE (NEGATIVE); CLARITY,URINE CLEAR (CLEAR); COLOR,URINE YELLOW (YELLOW); KETONES,URINE NEGATIVE (NEGATIVE); LEUKOCYTE ESTERASE ,URINE NEGATIVE (NEGATIVE); NITRITE,URINE NEGATIVE (NEGATIVE); PROTEIN,URINE DIPSTICK NEGATIVE (NEGATIVE); URINE UROBILINOGEN 0.2 mg/dL (0.2 - 1)
[2019-05-09] MEDS ORDERED: ONDANSETRON HCL INJ 2MG/ML 2ML 2 MG/ML VIAL IV ONE (08:30)
[2019-05-09 08:34] LABS: EPITHELIAL CELLS,URINE FEW /LPF
--- NOTE | 2019-05-09 08:40 | Diagnostic Imaging Report ---
EXAMINATION: CT of the abdomen and pelvis with contrast. TECHNIQUE: Spiral CT images of the abdomen and pelvis were performed from the lung bases to the lesser trochanters after the intravenous administration of 100 cc Isovue-370. Coronal and sagittal reformatted images were obtained. COMPARISON: None available CLINICAL HISTORY:Abdominal pain, prior history of diverticulitis DISCUSSION: ABDOMEN/PELVIS: LOWER THORAX:Unremarkable. HEPATOBILIARY: No focal hepatic lesion or intrahepatic biliary ductal dilatation. No radiopaque calculi are identified; however, the gallbladder is distended with mild pericholecystic fat stranding. SPLEEN: No splenomegaly. Multiple small splenules in the hilum. PANCREAS: No focal masses or ductal dilatation. ADRENALS: No adrenal nodules. KIDNEYS/URETERS: No hydronephrosis, calculi, or mass lesion. Lobulated contour of the kidneys may be congenital or postinflammatory. PELVIC ORGANS/BLADDER: The urinary bladder is incompletely distended but otherwise unremarkable. Prostate and seminal vesicles appear normal. Multiple pelvic phleboliths. PERITONEUM/RETROPERITONEUM: No ascites. No pneumoperitoneum. LYMPH NODES: No pelvic sidewall, retroperitoneal, or mesenteric lymphadenopathy. VESSELS: Atherosclerotic calcification of the abdominal aorta, major branch vessels, and iliac arterial systems, without aneurysmal dilatation. Patent bilateral single renal arteries. GI TRACT: The large bowel shows no distention or wall thickening. There are diverticula scattered along the descending and sigmoid colon without wall thickening or adjacent inflammatory change. The appendix is normal. Small sliding hiatal hernia. No small bowel dilatation to suggest obstruction. BONES AND SOFT TISSUE: No osseous destructive lesions. Multiple healed left rib fractures. Degenerative disc changes and facet arthropathy of the lumbar spine. No focal soft tissue abnormalities. IMPRESSION: Distended gallbladder with pericholecystic fat stranding is concerning for acute cholecystitis in the appropriate clinical setting. Consider right upper quadrant ultrasound for further evaluation. Otherwise no acute intra-abdominal or pelvic CT abnormalities. Large bowel diverticulosis without findings of diverticulitis. Atherosclerotic vascular disease. Signed by: Dr. Guille Crow M.D. on 05/09/2019 8:37 AM
--- NOTE | 2019-05-09 08:42 | Diagnostic Imaging Report ---
Examination: Single AP view of the chest. COMPARISON: Chest radiograph 09/24/2017 INDICATION: Shortness of breath, nausea, vomiting, abdominal pain DISCUSSION: The lungs are well-inflated and without focal airspace consolidation, pleural effusion, or pneumothorax. Tortuous thoracic aorta with otherwise normal cardiomediastinal contour for portable, AP technique. No acute osseous abnormality. Healed bilateral rib fracture deformities. IMPRESSION: 1. No acute cardiopulmonary abnormalities. Signed by: Dr. Guille Crow M.D. on 05/09/2019 8:39 AM
[2019-05-09] MEDS ORDERED: ONDANSETRON HCL INJ 2MG/ML 2ML 2 MG/ML VIAL IV PRN (09:30)
[2019-05-09] MEDS ORDERED: MORPHINE SULFATE INJ 4 MG/ML INJ 1ML IV PRN (09:30)
[2019-05-09] MEDS ORDERED: CEFTRIAXONE SOD 1 GM/NS 50 ML 50 ML IV ONE (09:30)
--- NOTE | 2019-05-09 09:44 | NUR ---
Dr. Karyna Montelongo at pt bedside
--- OUTSIDE RECORDS SUMMARY | 2019-05-09 10:29 | XMS REPORT | Clinical Summary ---
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 Role Phone Juanito Fam MD PCP [...] (Primary Dx); Alcoholic intoxication without complication 05/30/2018 [facility] General Internal Medicine - Encounter 06/01/2018 after [...] MMODE SPECTRAL 8:28 AM CDT COLOR DOPPLER ([id number]) LIPID PANEL Routine 08/29/2018 6:00 AM CDT [...] PRELIMINARY Routine 08/28/2018 INTERPRETATION 11:46 PM CDT ID CRITICAL CARE, ADDL 30 Routine 08/28/2018 MIN 11:46 PM CDT ID CRITICAL CARE, E/M Routine 08/28/2018 30-74 MINUTES [...] PRELIMINARY Routine 06/19/2018 INTERPRETATION 6:19 PM CDT ID CRITICAL CARE, E/M Routine 06/19/2018 30-74 MINUTES 6:19 PM CDT ID RESUPERF WND BODY Routine 06/19/2018 7.6-12.5 CM [...] ECG 12-LEAD STAT 06/16/2018 1:45 AM CDT ID APPLY LONG ARM SPLINT Routine 06/16/2018 1:39 [...] MMODE SPECTRAL 8:12 AM CDT COLOR DOPPLER ([id number]) LIPID PANEL Routine 05/31/2018 4:17 AM CDT [...] PRELIMINARY Routine 05/30/2018 INTERPRETATION 4:33 PM CDT ID CRITICAL CARE, E/M Routine 05/30/2018 30-74 MINUTES 4:33 PM CDT ECG 12-LEAD STAT 05/30/2018 4:32 PM CDT after 05/08/2018 Results * Estimated GFR (08/31/2018 4:18 AM CDT) Only the most recent of 4 results within the time period is included. Pathologist [facility] Estimated GFR >=90 mL/min/1.73 m2 [facility] Comment: OF PATHOLOGY CatergoryUnitsInte AND GENOMIC rpretation MEDICINE G1 >=90 Normal or high G2 60-89Mildly decreased [id number] Mildly to moderately decreased [id number] Moderately to severely decreased G4 15-29Severely decreased G5 <15Kidney failure The eGFR was calculated using the Chronic Kidney Disease Epidemiology Collaboration (CKD-EPI) equation. Interpretation is based on recommendations of the National Kidney Foundation-Kidney Disease Outcomes Quality Initiative (NKF-KDOQI) published in 2014. Specimen Plasma specimen Performing Organization Address City/State/Zipcode Phone Number [place] [id number] [place] [address] PATHOLOGY AND [employer] [facility] * CBC with platelet and differential (08/31/2018 4:18 AM CDT) Only the most recent of 9 results within the time period is included. Pathologist [facility] WBC 8.7 4.2 - 11.0 k/uL [facility] OF PATHOLOGY AND GENOMIC MEDICINE RBC 4.63 4.04 - 5.86 m/uL [facility] PATHOLOGY AND GENOMIC MEDICINE HGB 14.9 13.0 - 17.3 g/dL [facility] PATHOLOGY AND GENOMIC MEDICINE HCT 45.5 (H) 34.0 - 45.0 % [facility] PATHOLOGY AND GENOMIC MEDICINE MCV 98.3 (H) 80.0 - 98.0 fL [facility] OF PATHOLOGY AND GENOMIC MEDICINE MCH 32.2 27.0 - 34.0 pg [facility] OF PATHOLOGY AND GENOMIC MEDICINE MCHC 32.7 31.5 - 36.5 g/dL [facility] OF PATHOLOGY AND GENOMIC MEDICINE RDW - SD 46.9 37.0 - 51.0 fL [facility] OF PATHOLOGY AND GENOMIC MEDICINE MPV 9.4 7.4 - 10.4 fL [facility] OF [facility]OLOGY AND GENOMIC MEDICINE Platelet count 245 150 - 400 k/uL [facility] OF PATHOLOGY AND GENOMIC MEDICINE Nucleated RBC 0.00 /100 WBC [facility] OF PATHOLOGY AND GENOMIC MEDICINE Neutrophils 61.2 36.0 - 66.0 % [facility] OF PATHOLOGY AND GENOMIC MEDICINE Lymphocytes 25.8 24.0 - 44.0 % [facility] OF PATHOLOGY AND GENOMIC MEDICINE Monocytes 10.1 (H) 0.0 - 6.0 % [facility] [place] OF PATHOLOGY AND GENOMIC MEDICINE Eosinophils 1.7 0.0 - 6.0 % [facility] [place] OF PATHOLOGY AND GENOMIC MEDICINE Basophils 0.5 0.0 - 1.2 % [facility] OF PATHOLOGY AND GENOMIC MEDICINE Immature 0.7 0.0 - 1.0 % [facility] granulocytes OF PATHOLOGY AND GENOMIC MEDICINE Specimen Blood Performing Organization Address City/[facility] Phone Number [address] [place] [address] PATHOLOGY AND [facility] MEDICINE * Basic metabolic panel (08/31/2018 4:18 AM CDT) Only the most recent of 3 results within the time period is included. Pathologist [facility] Sodium 137 135 - 150 mEq/L [facility] OF PATHOLOGY AND GENOMIC MEDICINE Potassium 4.4 3.5 - 5.0 mEq/L [facility] OF PATHOLOGY AND GENOMIC MEDICINE Chloride 102 98 - 112 mEq/L [facility] OF PATHOLOGY AND GENOMIC MEDICINE CO2 26 24 - 31 mmol/L [facility] OF PATHOLOGY AND GENOMIC MEDICINE Anion gap 9@ANIO 7 - 15 mEq/L [facility] OF PATHOLOGY AND GENOMIC MEDICINE BUN 19 (H) 7 - 18 mg/dL [facility] OF PATHOLOGY AND GENOMIC MEDICINE Creatinine 0.80 0.70 - 1.20 mg/dL [facility] OF PATHOLOGY AND GENOMIC MEDICINE Glucose 115 (H) 65 - 100 mg/dL [facility] OF PATHOLOGY AND GENOMIC MEDICINE Calcium 9.3 8.3 - 10.2 mg/dL [facility] OF PATHOLOGY AND GENOMIC MEDICINE Specimen Plasma specimen Performing Organization Address City/[facility] Mex[facility]ode Phone Number [address] [place] [address] PATHOLOGY AND [facility] * Urine drugs of abuse screen (08/30/2018 8:49 PM CDT) Amphetamine Negative [facility] screen, urine OF PATHOLOGY AND GENOMIC MEDICINE Barbiturate Negative [facility] screen, urine OF PATHOLOGY AND GENOMIC MEDICINE Benzodiazepine Negative [facility] screen, urine OF PATHOLOGY AND GENOMIC MEDICINE Cannabinoid Negative [facility] screen, urine OF PATHOLOGY AND GENOMIC MEDICINE Cocaine screen, Negative [facility] urine OF PATHOLOGY AND GENOMIC MEDICINE Methadone Negative [facility] metabolite OF PATHOLOGY (EDDP), urine AND GENOMIC MEDICINE Opiates screen, Negative [facility] urine OF PATHOLOGY AND GENOMIC MEDICINE Phencyclidine Negative [facility] screen, urine OF PATHOLOGY AND GENOMIC MEDICINE Specimen Urine Performing Organization Address City/[facility]/Zipcode Phone Number [facility] [address] [place] [address] PATHOLOGY AND [facility] MEDICINE * Urinalysis, automated with microscopy (08/30/2018 8:49 PM CDT) Color, UA Yellow [facility] OF PATHOLOGY AND GENOMIC MEDICINE Appearance, UA Clear [facility] OF PATHOLOGY AND GENOMIC MEDICINE Specific 1.017 1.001 - 1.035 [facility] gravity, OF PATHOLOGY AND GENOMIC MEDICINE pH, UA 6.0 5.0 - 8.5 [facility] OF PATHOLOGY AND GENOMIC MEDICINE Protein, UA Negative Negative [facility] OF PATHOLOGY AND GENOMIC MEDICINE Glucose, UA Negative Negative [facility] OF PATHOLOGY AND GENOMIC MEDICINE Ketones, UA Negative Negative [facility] OF PATHOLOGY AND GENOMIC MEDICINE Bilirubin, UA Negative Negative [facility] OF PATHOLOGY AND GENOMIC MEDICINE Blood, UA Negative Negative [facility] OF PATHOLOGY AND GENOMIC MEDICINE Nitrite, UA Negative Negative [facility] OF PATHOLOGY AND GENOMIC MEDICINE Urobilinogen, Negative <2.0 [facility] UA OF PATHOLOGY AND GENOMIC MEDICINE Leukocyte Negative Negative [facility] esterase, UA OF PATHOLOGY AND GENOMIC MEDICINE WBC, UA 1 0 - 1 /HPF [facility] OF PATHOLOGY AND GENOMIC MEDICINE RBC, UA 1 0 - 5 /HPF [facility] OF PATHOLOGY AND GENOMIC MEDICINE Bacteria, UA None seen None seen [facility] OF PATHOLOGY AND GENOMIC MEDICINE Yeast, UA None seen [facility] OF PATHOLOGY AND GENOMIC MEDICINE Yeast with None seen [facility] pseudohyphae, OF PATHOLOGY UA AND GENOMIC MEDICINE Specimen Urine Performing Organization Address City/[facility]/Zipcode Phone Number [facility] [address] [place] [address] PATHOLOGY AND GENOMIC MEDICINE * Echocardiogram complete [...] the aortic valve leaflets. Performing Organization Address City/[facility] Mex[facility]ode Phone Number [facility] [address] [place] [address] * Troponin (08/29/2018 6:00 AM CDT) Only the most recent of 10 results within the time period is included. [facility] Troponin <0.30 0.00 - 0.30 ng/mL [facility] Comment: OF PATHOLOGY 0.11 - 1.49 AND GENOMIC ng/mlMay MEDICINE indicate increased risk of acute coronary syndrome. >=1.5 ng/ml Consistent with acute myocardial infarction. The diagnostic value of a single normal or non-diagnostic result is questionable.Serial samples at 2-6 hour intervals are required to rule out acute myocardial injury. Specimen Plasma specimen Performing Organization Address City/[facility] Mex[facility]ode Phone Number [facility] OF [address] [place] [address]. [place] [address] PATHOLOGY AND [employer] MEDICINE * Magnesium level (08/29/2018 6:00 AM CDT) Only the most recent of 4 results within the time period is included. [facility] Magnesium 1.90 1.60 - 2.60 mg/dL [facility] OF PATHOLOGY AND [employer] MEDICINE Specimen Plasma specimen Performing Organization Address City/[facility] Mex[facility] Phone Number [facility] [place] OF [address] [place] [address]. [place] [address] PATHOLOGY AND [employer] MEDICINE * Lipid panel (08/29/2018 6:00 AM CDT) Only the most recent of 4 results within the time period is included. [facility] Cholesterol 202 (H) 0 - 199 mg/dL [facility] OF PATHOLOGY AND GENOMIC MEDICINE Triglycerides 251 (H) 0 - 149 mg/dL [facility] OF PATHOLOGY AND GENOMIC MEDICINE HDL cholesterol 39 (L) 40 - 9,999 mg/dL [facility] OF PATHOLOGY AND GENOMIC MEDICINE LDL cholesterol 140 (H)Comment: Result 0 - 99 mg/dL [facility] obtained by direct LDL OF PATHOLOGY measurement AND GENOMIC MEDICINE Lipid panel See below [facility] interpretation Comment: OF PATHOLOGY Total Cholesterol AND GENOMIC (mg/dL) MEDICINE LDL Cholesterol (mg/dL) <200 Desirable <100 Optimal 200-239Borderline -pnec426-3 29Near or above optimal >=240High 130-159Borderline- high [...] mg/dL) Specimen Plasma specimen Performing Organization Address City/[facility] Phone Number [facility] [address] [place] [address] PATHOLOGY AND [employer] MEDICINE * Digoxin level (08/29/2018 2:44 AM CDT) Only the most recent of 2 results within the time period is included. Digoxin <0.3 (L) 0.8 - 2.0 ng/mL [facility] Comment: OF PATHOLOGY For valid Digoxin results, at AND GENOMIC least 6 hours should elapse MEDICINE between time of last dose and collection of blood. Otherwise, result may be false high. Therapeutic Range: 0.8 - 2.0 ng/mL Specimen Blood Performing Organization Address [facility] Phone Number [place] [id number] [facility] [place] [address] PATHOLOGY AND GENOMIC MEDICINE * XR Chest [...] part to technique. No acute osseous abnormalities. [facility]-[id number] Procedure Note Hm Interface, Radiology Results Incoming - 08/29/2018 12:17 AM CDT EXAMINATION: XR CHEST 1 VW PORTABLE CLINICAL HISTORY: chest pain COMPARISON: 05/30/2018. IMPRESSION: The lungs are clear. No pleural effusion or pneumothorax. Cardiac silhouette appears prominent due in part to technique. No acute osseous abnormalities. [facility]-[id number] Performing Organization Address City/State/Zipcode Phone Number [facility] [address] [place] [address] * ECG ED Preliminary Interpretation - NOT AN ORDER (08/28/2018 11:46 PM CDT) Only the most recent of 3 results within the time period is included. Narrative Performed At Gaurav Mcdonald MD 09/01/20187:56 PM ECG ED Preliminary Interpretation - Not an Order Performed by: GAURAV MCDONALD Authorized by: GAURAV MCDONALD ECG reviewed by ED Physician in the absence of a analyst market intelligence: yes Previous ECG: Previous ECG:Compared to current [...] results within the time period is included. [facility] BNP 82 0 - 100 pg/mL [facility] OF PATHOLOGY AND GENOMIC MEDICINE Specimen Blood Performing Organization Address City/State/Zipcode Phone Number [place] [address] [place] [address] PATHOLOGY AND [facility] * Comprehensive metabolic panel (08/28/2018 11:34 PM CDT) Only the most recent of 8 results within the time period is included. [facility] Sodium 140 135 - 150 mEq/L [facility] OF PATHOLOGY AND GENOMIC MEDICINE Potassium 5.1 (H) 3.5 - 5.0 mEq/L [facility] OF PATHOLOGY AND GENOMIC MEDICINE Chloride 103 98 - 112 mEq/L [facility] OF PATHOLOGY [facility] GENOMIC MEDICINE CO2 23 (L) 24 - 31 mmol/L [facility] OF PATHOLOGY AND GENOMIC MEDICINE Anion gap 14@ANIO 7 - 15 mEq/L [facility] OF PATHOLOGY AND GENOMIC MEDICINE BUN 13 7 - 18 mg/dL [facility] OF PATHOLOGY AND GENOMIC MEDICINE Creatinine 0.80 0.70 - 1.20 mg/dL [facility] OF PATHOLOGY AND GENOMIC MEDICINE Glucose 91 65 - 100 mg/dL [facility] OF PATHOLOGY AND GENOMIC MEDICINE Calcium 9.1 8.3 - 10.2 mg/dL [facility] OF PATHOLOGY AND GENOMIC MEDICINE Protein 7.3 6.3 - 8.3 g/dL [facility] OF PATHOLOGY AND GENOMIC MEDICINE Albumin 3.5 3.5 - 5.0 g/dL [facility] OF PATHOLOGY AND GENOMIC MEDICINE A/G ratio 0.9 0.7 - 3.8 [facility] OF PATHOLOGY AND GENOMIC MEDICINE Alkaline 134 (H) 0 - 129 U/L [facility] phosphatase OF PATHOLOGY AND GENOMIC MEDICINE AST 33 10 - 50 U/L [facility] OF PATHOLOGY AND GENOMIC MEDICINE ALT 17 5 - 50 U/L [facility] OF PATHOLOGY AND GENOMIC MEDICINE Total bilirubin 0.3 0.2 - 1.2 mg/dL [facility] OF PATHOLOGY AND GENOMIC MEDICINE Specimen Plasma specimen Performing Organization Address [facility] Phone Number [facility] [address] [facility] [place] [address] PATHOLOGY AND GENOMIC MEDICINE * ECG 12 [...] MUSE EKG impression Atrial fibrillation with rapid [facility] MUSE ventricular response-Nonspecific ST and T wave abnormality-Abnormal ECG-In automated comparison with ECG of 19-JUN-2018 18:23,-Vent. rate has increased BY75 BPM-Nonspecific T wave abnormality now evident in Lateral leads- Specimen Performing Organization Address [facility] Phone Number [facility] [address] [place] [address] * Lactic acid level (06/20/2018 5:40 AM CDT) Only the most recent of 3 results within the time period is included. [facility] Lactic acid 0.7 0.5 - 2.2 mmol/L [facility] OF PATHOLOGY AND GENOMIC MEDICINE Specimen Blood Performing Organization Address City/[facility] Phone Number [facility] OF [address] [facility] [place] [address] PATHOLOGY AND GENOMIC MEDICINE * Estimated GFR (06/20/2018 5:07 AM CDT) Only the most recent of 7 results within the time period is included. GFR Non Af Amer >90 mL/min/1.73 m2 [facility] OF PATHOLOGY AND GENOMIC MEDICINE GFR Af Amer >90 mL/min/1.73 m2 [facility] Comment: OF PATHOLOGY Chronic kidney disease: [...] Americans. Specimen Plasma specimen Performing Organization Address City/[facility] Phone Number [facility] [address] [place] [address] PATHOLOGY AND [employer] MEDICINE * Alcohol level, blood (06/20/2018 5:07 AM CDT) Only the most recent of 6 results within the time period is included. Alcohol None Detected mg/dL [facility] Comment: OF PATHOLOGY Normal AND GENOMIC None MEDICINE Detected Legal Intoxication in [place] 80 mg/dL (0.08%) Toxic Concentration 200 mg/dL (0.2%) Potentially Fatal 350-500 mg/dL (0.35%-0.5%) Alcohol percent None Detected % [facility] OF PATHOLOGY AND GENOMIC MEDICINE Specimen Blood Performing Organization Address City/[facility] Phone Number [facility] OF [address] [place] [address] PATHOLOGY AND [employer] MEDICINE * Beta hydroxybutyrate (06/19/2018 8:20 PM CDT) Beta 0.25 0.02 - 0.27 mmol/L [facility] hydroxybutyrate OF PATHOLOGY AND [employer] MEDICINE Specimen Blood Performing Organization Address City/[facility] Phone Number [place] [phone] [place] [address] PATHOLOGY AND [employer] MEDICINE * CT Head Wo Contrast (06/19/2018 [...] No CT evidence for acute intracranial abnormality. [facility]-[id number] Procedure Note Interface, Radiology Results Incoming - [...] No CT evidence for acute intracranial abnormality. [facility]-[id number] Performing Organization Address City/State/Zipcode Phone Number [facility] [address] [place] [address] * CT Cervical Spine Wo Contrast (06/19/2018 8:13 PM CDT) Specimen Narrative Performed At EXAMINATION: CT CERVICAL SPINE WO [facility]: falletohblood thinners. COMPARISON:None TECHNIQUE: Axial [...] to severe bilateral foraminal stenosis at C5-6. [facility]-[id number] Procedure Note [facility], Radiology Results - 06/19/2018 8:26 PM [...] to severe bilateral foraminal stenosis at C5-6. [facility]-[id number] Performing Organization Address City/State/Zipcode Phone Number [facility] [address] [place] [address] * Partial thromboplastin time, activated (06/19/2018 6:30 PM CDT) Only the most recent of 3 results within the time period is included. PTT 33.2 23.0 - 36.0 sec [facility] Comment: OF PATHOLOGY PTT therapeutic range for AND GENOMIC unfractionated heparin is MEDICINE 61.0-112.0 seconds which corresponds to Anti-Xa 0.3-0.7 U/ml. Note:Change in Panic Value The PTT Panic Value is changing from 110 sec. to 100 sec. due to new instrumentation and reagents. Correlation studies have been performed to validate this result. Specimen Blood Performing Organization Address [facility] Phone Number [place] [phone] [place] [address] PATHOLOGY AND GENOMIC MEDICINE * Prothrombin time with INR (06/19/2018 6:30 PM CDT) Only the most recent of 3 results within the time period is included. [facility] Prothrombin 15.6 (H) 12.0 - 15.0 sec [facility] time OF PATHOLOGY AND GENOMIC MEDICINE INR 1.22 (H) 0.92 - 1.12 [facility] Comment: OF PATHOLOGY For patients on anticoagulant AND GENOMIC therapy, reference ranges MEDICINE below: Indication: INR Value Treatment of Venous Thrombosis, 2.0-3.0 pulmonary emboli, or prophylaxis of a venous thrombosis, or systemic emboli. High dose, high risk patients 3.0-4.5 with mechanical valves. NOTE:INR values over 3.0 are sometimes associated with gastrointestinal hemorrhage, especially values over 4.0. Specimen Blood Performing Organization Address [facility] [place] [address] PATHOLOGY AND GENOMIC MEDICINE * Type and screen (06/19/2018 6:30 PM CDT) [facility] ABO grouping O [facility] [place] AND [place]OMIC MEDICINE Rh type NEG [facility] [place] [place] OF [place] AND GENOMIC MEDICINE Antibody screen NEG [facility] [place] [place] (gel) OF PATHOLOGY AND GENOMIC MEDICINE Specimen Blood Performing Organization Address [facility] [place] [address] PATHOLOGY AND GENOMIC MEDICINE * POC glucose (06/19/2018 6:27 PM CDT) [facility] POC glucose 99 65 - 100 mg/dL [facility] [place] [place] Comment: OF PATHOLOGY Meter ID: [id number] AND GENOMIC Physician Assistant Surgery: Sylvester SANTIAGO Specimen Performing Organization Address City/[facility]/Zipcode [place] [address] PATHOLOGY AND GENOMIC MEDICINE * CRITICAL CARE [...] Lactic acid 2.1 0.5 - 2.2 mmol/L [facility] [place]OLOGY AND GENOMIC MEDICINE Specimen Blood Performing Organization Address City/[facility] Phone Number [facility] [place] [place] [address] [place] [address] PATHOLOGY AND GENOMIC MEDICINE * XR Wrist [...] the wrist. The bones are slightly demineralized. [facility]-[id number] Procedure Note Hm Interface, Radiology Results Incoming [...] the wrist. The bones are slightly demineralized. [facility]-[id number] Performing Organization Address City/[facility]ode Phone Number [facility] [address] [place] [address] * Creatine kinase, total (CPK) (06/16/2018 2:05 AM CDT) Creatine kinase 45 39 - 308 U/L [facility] [place]Y AND GENOMIC MEDICINE Specimen Plasma specimen Narrative Performed At [facility] to Beck Stanley/AJAY at06/16/201803:19 ln [facility] [place] OF PATHOLOGY AND GENOMIC MEDICINE Performing Organization Address City/[facility] Phone Number [facility] [place] [place] [address] [place] [address] PATHOLOGY AND GENOMIC MEDICINE * SPLINT APPLICATION (06/16/2018 1:39 AM CDT) Narrative Performed At Anila Fajardo MD 06/17/2018 10:04 PM Splint Application Performed by: YENI JHA Authorized by: ANILA FAJARDO Consent: Consent obtained:Verbal Consent given by:Patient Risks discussed:Discoloration, numbness, pain and swelling Alternatives discussed:Referral Pre-procedure details: Sensation:Normal Skin color:[place] Procedure details: Laterality:Left Location:Wrist Wrist:L wrist Cast type:Short arm Splint type:Sugar tong Supplies:Cotton padding, Ortho-Glass and sling Post-procedure details: Pain:Improved Sensation:Normal Skin color:[place] Patient tolerance of procedure:Tolerated well, no immediate complications * Phosphorus level (06/01/2018 7:12 AM CDT) Only the most recent of 3 results within the time period is included. [facility] Phosphorus 3.9 2.4 - 4.5 mg/dL [facility] [place] OF [place]OLOGY AND GENOMIC MEDICINE Specimen Plasma specimen Performing Organization Address [facility] Phone Number [facility] [place] [place] [address] [place] [address] PATHOLOGY AND GENOMIC MEDICINE * Gram stain only (05/31/2018 11:00 PM CDT) [facility] Gram stain Few WBC's [facility] DEPARTMENT result Few Gram positive rods OF PATHOLOGY Occasional Gram positive AND GENOMIC cocciin chains MEDICINE Comment: Specimen Information Specimen Source: Urine Specimen Site: Clean catch Specimen Urine Performing Organization Address [facility] Phone Number [place] [address], [address] [place] [address] PATHOLOGY AND GENOMIC MEDICINE * Urinalysis screen and microscopy, with reflex to culture (05/31/2018 11:00 PM CDT) Specimen site Clean catch [facility] [place] [place] OF PATHOLOGY AND GENOMIC MEDICINE Color, UA Yellow [facility] [place] [place] OF PATHOLOGY AND GENOMIC MEDICINE Appearance, UA Clear [facility] [place] [place] OF PATHOLOGY AND GENOMIC MEDICINE Specific 1.019 1.001 - 1.035 [facility] [place] [place] gravity, UA OF PATHOLOGY AND GENOMIC MEDICINE pH, UA 7.0 5.0 - 8.5 [facility] [place] [place] OF PATHOLOGY AND GENOMIC MEDICINE Protein, UA Negative Negative [facility] [place] OF PATHOLOGY AND GENOMIC MEDICINE Glucose, UA Negative Negative [facility] [place] OF PATHOLOGY AND GENOMIC MEDICINE Ketones, UA Negative Negative [facility] [place] OF PATHOLOGY AND GENOMIC MEDICINE Bilirubin, UA Negative Negative [facility] [place] [facility] [place] OF PATHOLOGY AND GENOMIC MEDICINE Blood, UA Negative Negative [facility] [place] OF PATHOLOGY AND GENOMIC MEDICINE Nitrite, UA Negative Negative [facility] [place] [place] OF PATHOLOGY AND GENOMIC MEDICINE Urobilinogen, 2.0 (A) <2.0 [facility] UA OF PATHOLOGY AND GENOMIC MEDICINE Leukocyte Small (A) Negative [facility] esterase, UA OF PATHOLOGY AND GENOMIC MEDICINE Epithelial Moderate /HPF [facility] cells, UA OF PATHOLOGY AND GENOMIC MEDICINE WBC, UA 3 (H) 0 - 1 /HPF [facility] [place] [facility] OF PATHOLOGY AND GENOMIC MEDICINE RBC, UA 2 0 - 5 /HPF [facility] [place] OF PATHOLOGY AND GENOMIC MEDICINE Bacteria, UA Trace None seen [facility] OF PATHOLOGY AND GENOMIC MEDICINE Yeast, UA None seen [facility] OF PATHOLOGY AND GENOMIC MEDICINE Yeast with None seen [facility] pseudohyphae, OF PATHOLOGY UA AND GENOMIC MEDICINE Specimen Urine Performing Organization Address City/State/Zipcode Phone Number [facility] [place] [address] [place] [address] PATHOLOGY AND GENOMIC MEDICINE * Urine culture (05/31/2018 11:00 PM CDT) Pathologist [facility] Urine culture Mixed Gram positive cole [facility] DEPARTMENT isolate 10-5 cfu/ml OF PATHOLOGY (A) AND GENOMIC Comment: MEDICINE Specimen Information Specimen Source: Urine Specimen Site: Clean catch Specimen Urine Performing Organization Address City/State/Zipcode Phone Number [facility] DEPARTMENT OF [address] [place] [address] PATHOLOGY AND GENOMIC MEDICINE * Echocardiogram complete [...] the aortic valve leaflets. Performing Organization Address City/[facility]/Zipcode Phone Number [facility] [address] [place] [address] * T3, free (05/31/2018 4:17 AM CDT) T3, free 2.81 2.18 - 3.98 pmol/L [facility] [place] [place] OF PATHOLOGY AND GENOMIC MEDICINE Specimen Plasma specimen Performing Organization Address City/[facility] [place] [address] PATHOLOGY AND [facility] MEDICINE * Thyroid stimulating hormone (05/31/2018 4:17 AM CDT) Only the most recent of 2 results within the time period is included. TSH 1.54 0.27 - 4.20 uIU/mL [facility] [place] [place] OF PATHOLOGY AND GENOMIC MEDICINE Specimen Plasma specimen Performing Organization Address [facility] [place] [address] PATHOLOGY AND [facility] MEDICINE * Hemoglobin A1c (05/31/2018 4:17 AM CDT) Hemoglobin A1C 5.5 4.0 - 6.0 % [facility] Comment: OF PATHOLOGY AND GENOMIC MEDICINE Less than 6% - Goal of therapy for Type II Diabetes Less than 7%-Goal of therapy for Type I Diabetes Less than 8%-Accepta ble control for Type I or Type II Diabetes Greater than 8%-Unacceptabl e control; action indicated. ([id number]) Specimen Blood Performing Organization Address City/State/Zipcode Phone Number [facility] [place] [place] [address] [place] [address] PATHOLOGY AND GENOMIC MEDICINE * Bilirubin direct (05/30/2018 5:04 PM CDT) Bilirubin <0.2 0.0 - 0.4 mg/dL [facility] direct OF PATHOLOGY AND GENOMIC MEDICINE Specimen Plasma specimen Performing Organization Address City/State/Zipcode Phone Number [facility] [place] OF [address] [place] [address] PATHOLOGY AND GENOMIC MEDICINE * CRITICAL CARE [...] Effective Phone Address Plan / Dates Group [facility] MEDICAID [facility] xxxxxxxxx 2016-P [employer]+ resent [facility] Guarantor Name Account Relation to Date of Phone Billing Address Type Patient Melvin Chapman Personal/F Self 1960 [id number] (Home) [place] [address] Advance Directives Patient has advance care planning documents, and code status on file. For more i nformation, please contact: Evangelist Nava [address] [place] [address] Date Inactivated Comments Code Status Date Activated 11/02/2017 7:56 PM Full Code 10/28/2017 11:24 PM Code Status decision reached by: Patient
--- NOTE | 2019-05-09 11:00 | NUR ---
RECD PT FROM ER VIA W/C,AAOX3,IV TO RT AC 20 GAUGE,DENIES PAIN,HOB ELEVATED,CALL BED IN REach
--- NOTE | 2019-05-09 11:10 | Diagnostic Imaging Report ---
EXAMINATION: Right upper quadrant ultrasound CLINICAL INDICATION: Right upper quadrant pain COMPARISON: Same day abdominal CT DISCUSSION: Transverse and longitudinal images of the right upper quadrant were obtained. The liver is increased in size measuring 18.8centimeters in length in the right midclavicular line and shows increased echogenicity. No focal masses are seen in the liver. There is no intrahepatic biliary dilatation. The common bile duct is normal in caliber measuring 0.5 cm. the main portal vein is normal in caliber and measures 0.8 cm with normal hepatopetal flow. Multiple shadowing calculi are identified within the gallbladder lumen. The wall is at the upper limits of normal in thickness, measuring 3 mm. No pericholecystic fluid. Sonographic Richardson sign is negative. The pancreas is poorly visualized secondary to overlying bowel gas. The right kidney measures 11.8 centimeters in length. There is normal renal cortical echogenicity and no hydronephrosis, mass or shadowing calculi. IVC is patent. Abdominal aorta is nonaneurysmal. No free fluid is seen. IMPRESSION: Cholelithiasis without specific sonographic findings of acute cholecystitis. Hepatomegaly with increased parenchymal echogenicity compatible with steatosis. Signed by: Dr. Guille Crow M.D. on 05/09/2019 11:07 AM
[2019-05-09 11:16] VITALS: BP 143/83
[2019-05-09 11:27] VITALS: BP 143/83
[2019-05-09 11:34] VITALS: BP 143/83
[2019-05-09] MEDS ORDERED: POTASSIUM CHLO10 ME1 PO (11:36)
[2019-05-09] MEDS ORDERED: ELIQUS PO (11:42)
[2019-05-09] MEDS ORDERED: ALBUTEROL0.63 MG/3 INH (11:42)
[2019-05-09] MEDS ORDERED: DIGOXIN125 MCG PO (11:42)
[2019-05-09] MEDS ORDERED: FLONASE INH (11:42)
[2019-05-09] MEDS ORDERED: LASIX40 MG PO (11:42)
[2019-05-09] MEDS ORDERED: METOPROLOL TART50 MG PO (11:42)
[2019-05-09] MEDS ORDERED: DILTIAZEM 24HR180 MG PO (11:42)
[2019-05-09] MEDS ORDERED: ALBUTEROL SULFATE HFA 8GM INHALATION AEROSOL INH PRN (12:00)
[2019-05-09] MEDS ORDERED: ALBUTEROL SULFATE HFA 8GM INHALATION AEROSOL INH SCH (12:00)
[2019-05-09] MEDS: POTASSIUM CHLORIDE 10MEQ EA PO SCH (12:26)
[2019-05-09] MEDS: DIGOXIN 0.125 MG TAB PO SCH (12:27)
[2019-05-09] MEDS: DILTIAZEM HCL 180 MG CAP ER PO SCH (12:27)
[2019-05-09] MEDS: FUROSEMIDE 40 MG TAB PO SCH (12:28)
[2019-05-09] MEDS ORDERED: ALBUTEROL SULF 0.083% NEB SOLN 3 ML NEB INH SCH (13:00)
[2019-05-09 15:51] VITALS: BP 133/69
--- NOTE | 2019-05-09 16:42 | Consultation ---
DATE OF CONSULTATION: 05/09/2019 REASON FOR CONSULTATION: Abdominal pain. HISTORY OF PRESENT ILLNESS: The patient is an obese 58-year-old male, admitted to the hospital complaining of abdominal pain that had developed this morning. The pain is described by the patient has located all over the abdomen with poor localization. He has a history of constipation and diverticulitis in the past. No vomiting. He denies any fatty food intolerance. Yesterday he had some nachos at a local restaurant. No diarrhea. The patient in the emergency room had a CT scan that revealed some inflammatory changes around the gallbladder, but no stones. There was diverticulosis of the large intestine, but no evidence of acute diverticulitis. His admission white count is 9 with a hematocrit of 47. Admission electrolytes are normal. Admission liver chemistries are normal. PAST MEDICAL HISTORY: Significant for history of atrial fibrillation, hypertension. He has a history of congestive heart failure reason for which he states he is disabled. PAST SURGICAL HISTORY: Had surgery of the wrist. No abdominal surgeries. He has a history of alcohol abuse. PHYSICAL EXAMINATION: GENERAL: Reveals a 58-year-old male, awake, and in no acute distress. HEAD, EYES, EARS, NOSE, AND THROAT: Reveals no acute process. LUNGS: Clear. HEART: Reveals regular rhythm. ABDOMEN: Obese, soft, without any peritoneal signs. He complains of diffuse tenderness upon palpation, but there is no guarding. ADMISSION LABORATORIES: X-rays have been discussed. The chest x-ray reveals no acute respiratory distress. ASSESSMENT: An obese 58-year-old male, who is a poor historian, who now complains of abdominal pain of several hours duration. The patient had a CT scan that revealed some inflammatory changes around the gallbladder. Clinically, he does not have acute cholecystitis. He does have a history of diverticulitis as well as congestive heart failure. He apparently also drinks alcohol. At this point, there is no need for any emergent surgical intervention. I think this patient merits admission and further workup. If the ultrasound of the gallbladder is negative, I would advise a HIDA scan, and depending upon those results, further GI workup should be undertaken. He will need in the event that surgical intervention is needed a medical clearance. Kennedy Montelongo MD PJLudy/TAY /[id number]
[2019-05-09] MEDS: DOCUSATE SODIUM LIQD 100 MG/10 ML UDC NG SCH (16:45)
[2019-05-09] MEDS ORDERED: FLUTICASONE PROPIONATE NASAL SPRAY NS PRN (17:00)
[2019-05-09] MEDS ORDERED: FLUTICASONE PROPIONATE NASAL SPRAY NS SCH (17:00)
[2019-05-09] MEDS ORDERED: FLONASE INH SCH (17:00)
--- NOTE | 2019-05-09 17:11 | NUR ---
PT UP IN BED NO DISTRESS NOTED,DENIES PAIN
--- NOTE | 2019-05-09 19:00 | NUR ---
Patient visited in room during nursing rounds. Patient alert and oriented x3. No distress or discomfort noted. On IVF (D5 1/2NS with 20meq KCL at 100ml/hr). Pt aware being NPO and possible cholecystectomy on 05/11. Call walton within reach.
[2019-05-09] MEDS ORDERED: IOPAMIDOL 370 MG/ML 200 ML INFUS..BTL INJ ONE (19:45)
[2019-05-09] MEDS ORDERED: SODIUM CHLORIDE 0.9% 50ML 50 ML ONE (19:45)
--- NOTE | 2019-05-09 19:58 | NUR ---
Called Dr. Karyna Montelongo and asked about Eliquis medication. MD ordered to stop Eliquis at this time. also changed Protonix IV to Pepcid IV. aware of national shortage of Protonix IV.
[2019-05-09 20:00] VITALS: BP 134/88
[2019-05-09] MEDS: D5.45%NS/KCL 20MEQ 1,000 ML IV SCH (20:43)
[2019-05-09] MEDS ORDERED: APIXABAN 5 MG TABLET PO SCH (21:00)
[2019-05-10] VITALS (7 sets, daily range): BP systolic 121–158; BP diastolic 70–93
[2019-05-10 05:40] LABS: BASOPHILS % 0.4 % (0.0-1.0); EOSINOPHILS # (AUTO) 0.1 (0.0-0.4); EOSINOPHILS % 1.7 % (0.0-6.0); HEMATOCRIT 45.4 % (38.2-49.6); HEMOGLOBIN 14.9 g/dL (14.0-18.0); LYMPHOCYTES # (AUTO) 1.6 (1.0-3.2); LYMPHOCYTES % 21.8 % (18.0-39.1); MEAN CORPUSCULAR HEMOGLOBIN 33.5 pg (28-32); MEAN CORPUSCULAR HGB CONC 32.8 g/dL (31-35); MONOCYTES # (AUTO) 0.7 (0.2-0.8); MONOCYTES % 10.3 % (4.4-11.3); NEUTROPHILS # (AUTO) 4.7 (2.1-6.9); NEUTROPHILS % 65.2 % (38.7-80.0); PLATELET COUNT 244 x10e3/uL (140-360); RED BLOOD COUNT 4.45 x10e6/uL (4.3-5.7); RED CELL DISTRIBUTION WIDTH 13.7 % (11.7-14.4)
[2019-05-10] MEDS: POTASSIUM CHLORIDE 10MEQ EA PO SCH (06:00)
[2019-05-10 06:03] LABS: ANION GAP 12.3 mmol/L (8-16); BLOOD UREA NITROGEN 7 mg/dL (7-26); BUN/CREATININE RATIO 9 (6-25); CALCIUM 8.6 mg/dL (8.4-10.2); CARBON DIOXIDE 28 mmol/L (22-29); CHLORIDE 101 mmol/L (98-107); CREATININE, SERUM 0.74 mg/dL (0.72-1.25); EST GLOMERULAR FILTRATION RATE > 60 ML/MIN (60-); GLUCOSE 119 mg/dL (74-118); POTASSIUM 3.3 mmol/L (3.5-5.1); SODIUM 138 mmol/L (136-145)
--- NOTE | 2019-05-10 06:09 | NUR ---
PRIMARY CARE PHYSICIAN: Dr. Fam. CHIEF COMPLAINT: abdominal pain HISTORY OF PRESENT ILLNESS: This is a 58yoM, p/w right abdominal painx1 day; No N/V/D. found to have cholelithiasis. 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 PAST SURGICAL HISTORY: None. ALLERGIES: PER ELECTRONIC MEDICAL RECORD. FAMILY HISTORY: Unknown. SOCIAL HISTORY: single; cigarette use; MEDICATIONS: Per electronic medical record. REVIEW OF SYSTEMS: no f/c/s/N/V/D/RASCON/vision changes/cp/sob/skin rash/vision changes. PHYSICAL EXAMINATION VITAL SIGNS: Have been reviewed. GENERAL: A tired-appearing man resting in bed. HEENT: Anicteric. Pupils react to light. No oral lesions. CARDIOVASCULAR: Normal S1/S2. LUNGS: Moderate breath sounds. No wheezes. ABDOMEN: Soft, Not tender at this time; Negative Richardson sign EXTREMITIES: No edema or calf tenderness. NEUROLOGIC: Alert and oriented x3. He moves all extremities. SKIN: Dry. PSYCHIATRIC: Flat affect. LABS: Reviewed. MEDICATIONS: Reviewed. ASSESSMENT AND PLAN: This is a 58-year-old man. Cholelithiasis ?cholecystitis? Atrial fibrillation Systolic CHF LVEF 40-45% Hx cigarette abuse Hx transaminitis with hyperbilirubinemia with Jaundice Hx cholestasis of the liver Hepatomegaly PLAN get HIDA may need lap darby scd f/u study Robert Charles MD, PhD.
[2019-05-10] MEDS: DIGOXIN 0.125 MG TAB PO SCH (06:22)
--- NOTE | 2019-05-10 06:25 | NUR ---
Called Dr. Charles via phone to inform K level of 3.3. aware and ordered to give pt x1 dose of KCL 20meq IV. emphasized to keep pt strictly NPO at this time.
[2019-05-10] MEDS ORDERED: POTASSIUM CHLORIDE 20MEQ/100ML 100 ML IV ONE (06:30)
--- NOTE | 2019-05-10 07:30 | NUR ---
recd pt in bed resting no s/s discomfort.
[2019-05-10] MEDS: D5.45%NS/KCL 20MEQ 1,000 ML IV SCH ×3 (07:45→23:37)
[2019-05-10] MEDS: METOPROLOL SUCCINATE 50 MG TAB XL PO SCH (09:00)
[2019-05-10] MEDS: FUROSEMIDE 40 MG TAB PO SCH (09:00)
[2019-05-10] MEDS ORDERED: PANTOPRAZOLE 40 MG 10ML VIAL IV SCH (09:00)
[2019-05-10] MEDS: DILTIAZEM HCL 180 MG CAP ER PO SCH (09:00)
[2019-05-10] MEDS ORDERED: METOPROLOL TARTRATE 50 MG TAB PO SCH (09:00)
[2019-05-10] MEDS: DOCUSATE SODIUM LIQD 100 MG/10 ML UDC NG SCH ×2 (09:00→17:00)
[2019-05-10] MEDS ORDERED: APIXABAN 5 MG PO SCH (09:00)
[2019-05-10] MEDS: FAMOTIDINE 20 MG/2 ML VIAL IV SCH (09:00)
--- NOTE | 2019-05-10 12:45 | NUR ---
PT TRANSPORTED TO HIDA SCAN VIA W/C
--- NOTE | 2019-05-10 13:45 | NUR ---
PT RETURNED TO ROOM VIA W/C DENIES PAIN
[2019-05-10] MEDS ORDERED: CEFTRIAXONE SOD 1 GM/NS 50 ML 50 ML IV SCH (14:00)
--- NOTE | 2019-05-10 15:27 | Diagnostic Imaging Report ---
Hepatobiliary Scan with Gallbladder Ejection Fraction Clinical information: RUQ abdominal pain Technique: Following intravenous administration of 5.8 millicuries of Tc-99m mebrofenin, dynamic images of the abdomen in the anterior projection were obtained through 78 minutes. Sincalide (CCK analog) 2.7 micrograms was administered intravenously over 30 minutes with additional imaging for determination of gallbladder ejection fraction. Discussion: Perfusion of the liver is normal. Extraction of tracer by the liver parenchyma is very mildly prolonged. Tracer appears promptly within the biliary tract. The gallbladder does not begin to fill until 63 minutes post injection of tracer. It doesn't fill very full over the subsequent 15 minutes. Tracer is seen in the small bowel by 6 minutes. There is no contractile response by the gallbladder through 12 minutes of the sincalide infusion but at that time, tracer reaches th hepatic flexure of the large bowel which then overlies the gallbladder and further evaluation of the gallbladder is not possible. Impression: 1. Filling of the gallbladder excludes acute cystic duct obstruction/acute cholecystitis, although concern that the gallbladder is not able to fill much may indicate partial obstruction. 2. The gallbladder ejection fraction cannot be adequately assessed because tracer reaching the hepatic flexure obscures the gallbladder during the remainder of the sincalide infusion. 3. Scan evidence of mild hepatocyte dysfunction. Signed by: Dr. Melinda Campbell M.D. on 05/10/2019 3:24 PM
--- NOTE | 2019-05-10 16:19 | Consultation ---
DATE OF CONSULTATION: 05/10/2019 HISTORY OF PRESENT ILLNESS: This is a 58-year-old man with a history of atrial fibrillation, chronic systolic congestive heart failure, hypertension, tobacco and alcohol use, who presented to the emergency department with progressively worsening right upper quadrant abdominal pain with occasional radiation into his epigastrium. Denies any typical angina, palpitations, shortness of breath or syncopal events. The patient states that he has been following with a assisted living nursing director, Dr. Colbert in [place]. He reports that he has had a previous echocardiogram within the last couple months, which showed normal left ventricular systolic function. The patient denies any prior percutaneous coronary interventions. His last stress test in 2017, which was within normal limits and showed no evidence of scar or ischemia. REVIEW OF SYSTEMS: A 12-point review of system was conducted, and is negative otherwise as stated above in the HPI. PAST MEDICAL HISTORY: As stated above in the HPI. PAST SURGICAL HISTORY: None recent. PAST FAMILY HISTORY: No premature coronary artery disease or sudden cardiac . SOCIAL HISTORY: Alcohol and tobacco use. No illicit drug use. ALLERGIES: NO KNOWN DRUG ALLERGIES. MEDICATIONS: See medications reconciliation form. PHYSICAL EXAMINATION: VITAL SIGNS: Temperature 96.9, heart rate is 87, respirations are 20, blood pressure is 128/93, ox saturation 96% on room air. GENERAL: He is a well-appearing obese male, lying comfortably in bed, no apparent distress. HEENT: Head is normocephalic, atraumatic. Eyes, the extraocular intact. Conjunctivae clear. NECK: No JVD. No bruits. CARDIOVASCULAR: He is irregularly irregular. Normal rate. No murmurs. LUNGS: Clear to auscultation. ABDOMEN: Soft, nontender, obese. EXTREMITIES: Trace edema. VASCULAR: Diminished pulses. SKIN: Warm, dry and intact. NEUROLOGIC: No focal deficits noted. Cranial nerves grossly intact. PSYCHIATRIC: Normal mood and affect. CARDIOVASCULAR MEDICATIONS: Reviewed, include metoprolol succinate, Lasix, diltiazem, digoxin. LABORATORY DATA: Creatinine is 0.74. Troponin I 0.001. Chest x-ray shows no acute cardiopulmonary abnormality. Ultrasound of the gallbladder shows cholelithiasis without specific sonographic findings of acute cholecystitis. CT of the abdomen showed distended gallbladder with fat stranding. IMPRESSION: 1. Cholelithiasis. 2. History of congestive heart failure. 3. Atrial fibrillation. 4. Hypertension. 5. Hyperlipidemia. 6. Obesity. 7. Alcohol or tobacco use. RECOMMENDATIONS: The patient has no active cardiac symptoms. The patient states that he had no symptoms with metabolic equivalents greater than 4 prior to this episode. His troponin values are within normal limits. His 12-lead electrocardiogram showed atrial fibrillation with controlled ventricular response. We will check a 2D echocardiogram to reassess his left ventricular systolic function. Stress test in 2017 showed no active ischemia or scar. If echocardiogram shows stable or preserved left ventricular systolic function, he is a candidate for cholecystectomy. Suresh Alvarez DO BM/MODL /[id number]
--- NOTE | 2019-05-10 16:53 | NUR ---
PT UP IN BEDD DENIES PAIN,NO DISTRES NTOED
--- NOTE | 2019-05-10 19:30 | NUR ---
Patient visited in room during nursing rounds. Patient alert and oriented x3. No distress or discomfort noted. On IVF (D5 1/2NS with 20meq KCL at 100ml/hr). Pt aware being NPO and scheduled for Lap cholecystectomy on 05/11. Pt about to take a bath tonight. Call walton within reach.
--- NOTE | 2019-05-10 20:00 | NUR ---
Patient taking a shower (bath) at this time. No c/o pain or discomfort at this time.
[2019-05-11] VITALS (7 sets, daily range): BP systolic 123–137; BP diastolic 65–83
[2019-05-11] MEDS: POTASSIUM CHLORIDE 10MEQ EA PO SCH (05:35)
[2019-05-11] MEDS ORDERED: BUPIVACAINE 0.25%/EPI 30ML SDV INJ ONE (06:56)
[2019-05-11] MEDS ORDERED: HYDROGEN PEROXIDE 120 ML BTL ONE (06:56)
--- NOTE | 2019-05-11 07:00 | NUR ---
RECEIVED PATIENT RESTING IN BED. NO ACUTE DISTRESS NOTED, RESPIRATIONS EVEN AND UNLABORED. DENIES PAIN OR DISCOMFORT AT THIS TIME. CALL LIGHT WITHIN REACH. BED IN THE LOWEST POSITION.
--- NOTE | 2019-05-11 07:44 | NUR ---
IM- progress note O/N; no events REVIEW OF SYSTEMS: no f/c/s/N/V/D/RASCON/vision changes/cp/sob/skin rash/vision changes. PHYSICAL EXAMINATION VITAL SIGNS: Have been reviewed. GENERAL: A tired-appearing man resting in bed. HEENT: Anicteric. Pupils react to light. No oral lesions. CARDIOVASCULAR: Normal S1/S2. LUNGS: Moderate breath sounds. No wheezes. ABDOMEN: Soft, Not tender at this time; Negative Richardson sign EXTREMITIES: No edema or calf tenderness. NEUROLOGIC: Alert and oriented x3. He moves all extremities. SKIN: Dry. PSYCHIATRIC: Flat affect. LABS: Reviewed. MEDICATIONS: Reviewed. ASSESSMENT AND PLAN: This is a 58-year-old man. Cholelithiasis ?cholecystitis? Atrial fibrillation Systolic CHF LVEF 40-45% Hx cigarette abuse Hx transaminitis with hyperbilirubinemia with Jaundice Hx cholestasis of the liver Hepatomegaly PLAN get HIDA may need lap darby scd f/u study 6-28 GB dysfunction; will need lap darby; check K; f/u echo. Robert Charles MD, PhD.
--- NOTE | 2019-05-11 08:26 | NUR ---
Dr. Alvarez called to inform nurse that patient's echo looked ok, patient clear to go to procedure.
[2019-05-11] MEDS: FAMOTIDINE 20 MG/2 ML VIAL IV SCH (08:32)
--- NOTE | 2019-05-11 08:38 | NUR ---
PATIENT OFF THE UNIT FOR PROCEDURE
[2019-05-11] MEDS: DOCUSATE SODIUM LIQD 100 MG/10 ML UDC NG SCH ×2 (09:00→16:08)
[2019-05-11] MEDS ORDERED: PROMETHAZINE HCL (IM) 25 MG/ML VIAL IV PRN (11:15)
[2019-05-11] MEDS ORDERED: HYDROCODONE/APAP 7.5MG-325MG 1 EA TAB PO PRN (11:15)
[2019-05-11] MEDS ORDERED: ONDANSETRON HCL INJ 2MG/ML 2ML 2 MG/ML VIAL IV PRN (11:15)
[2019-05-11] MEDS ORDERED: HYDROMORPHONE 2MG/ML 2 MG/ML ML ONE (11:24)
[2019-05-11] MEDS ORDERED: FENTANYL CITRATE/PF 100MCG/2 ML INJ ONE ×2 (11:54→14:05)
--- NOTE | 2019-05-11 12:17 | NUR ---
PATIENT BACK FROM PROCEDURE AT THIS TIME.
[2019-05-11] MEDS: D5.45%NS/KCL 20MEQ 1,000 ML IV SCH ×2 (12:28→23:30)
[2019-05-11] MEDS: DIGOXIN 0.125 MG TAB PO SCH (12:42)
[2019-05-11] MEDS: FUROSEMIDE 40 MG TAB PO SCH (12:42)
[2019-05-11] MEDS: METOPROLOL SUCCINATE 50 MG TAB XL PO SCH (12:42)
[2019-05-11] MEDS: DILTIAZEM HCL 180 MG CAP ER PO SCH (12:42)
[2019-05-11] MEDS: CEFTRIAXONE SOD 2 GM/NS 100 ML 100 ML IV SCH (12:42)
--- NOTE | 2019-05-11 13:59 | Operative Report ---
DATE OF PROCEDURE: 05/11/2019 SURGEON: Kennedy Montelongo MD PREOPERATIVE DIAGNOSES: Chronic cholecystitis, cholelithiasis, obesity. POSTOPERATIVE DIAGNOSES: Chronic cholecystitis with a component of subacute cholecystitis, cholelithiasis, obesity. PROCEDURE PERFORMED: Laparoscopic cholecystectomy. CLINICAL LABORATORY MANAGER: JOHANNA Veliz. ESTIMATED BLOOD LOSS: Minimal. DRAINS: None. COMPLICATIONS: None. INDICATIONS AND FINDINGS: The patient is an obese male, admitted with abdominal pain. Workup revealed cholelithiasis. The HIDA scan revealed visualization of the gallbladder on a delayed basis, the ejection fraction could not be established. It is possible that he did not have an ejection fraction versus artifact. The patient was taken to the operating room. Intraoperative findings were acute cholecystitis and chronic cholecystitis with gallstones. There was no ductal dilatation. The patient's abdomen was difficult to view laparoscopically because of the large size of the patient and a very large and abundant omentum, however, no acute pathology was seen. Preoperatively, the patient also had a CT scan of the abdomen that revealed no acute process. There was evidence of diverticulosis without diverticulitis and the CT scan had also revealed inflammatory changes around the gallbladder consistent with cholecystitis. DESCRIPTION OF PROCEDURE: With the patient lying on the operating table in the supine position after administration of general endotracheal anesthesia, he was prepped and draped for laparoscopic cholecystectomy. Because of the large size, pneumoperitoneum was insufflated in the right midclavicular line. After this, the saline drop test was performed and pneumoperitoneum was insufflated to 15 mm of pressure and then the camera introduced. Under direct vision with the camera, we placed an umbilical 10 mm trocar and then we placed 10 mm subxiphoid port, the right anterior axillary line trocar and finally to expose the operative field, we placed a 5 mm trocar in the left upper quadrant. We identified the gallbladder, retracted it cephalad using grasping forceps through the two 5 mm trocars in the right upper quadrant and then the stomach and omentum and colon were displaced inferiorly and posteriorly with a blunt probe. We began dissection on the neck of the gallbladder easily exposing the cystic duct as well as the cystic artery and the common bile duct. Completed the triangle of safety at this point, then we transected the cystic duct three times distally and once proximally and the cystic artery was transected between titanium clips also and then we removed the gallbladder from the liver bed using electrocautery dissection. Bleeding points were cauterized as they were encountered. The gallbladder was finally detached and removed after transposition of the camera through the subxiphoid port. After we did that, we went ahead and inspected the operative field. There was no bile leak, no bleeding. We closed the umbilical defect with three of 0 Vicryl stitches under direct vision with the camera and then we also placed Surgicel in the gallbladder bed fossa to ascertain complete hemostasis and then released the pneumoperitoneum, closed the wound, the subcutaneous tissues using 2-0 Vicryl for the umbilical port as well as the subxiphoid port and the skin of all the ports was closed using 3-0 silk. Sterile dressing was applied. The patient tolerated the procedure well and taken to the recovery room in stable condition. MD SERG Flores/TAY /[id number]
[2019-05-11] MEDS ORDERED: MIDAZOLAM HCL 2 MG/2 ML VIAL ONE (14:05)
[2019-05-11] MEDS: HYDROMORPHONE 2MG/ML 2 MG/ML ML IV PRN (18:00)
--- NOTE | 2019-05-11 19:05 | NUR ---
Report given to oncoming nurse. Walking rounds done. Patient is resting in bed. No acute distress noted. States pain is at a tolerable level at this time. Call light within reach. Bed in the lowest position.
[2019-05-12] VITALS (8 sets, daily range): BP systolic 104–131; BP diastolic 61–81
[2019-05-12] MEDS: HYDROMORPHONE 2MG/ML 2 MG/ML ML IV PRN (01:33)
[2019-05-12] MEDS: POTASSIUM CHLORIDE 10MEQ EA PO SCH (05:17)
[2019-05-12 06:11] LABS: ANION GAP 11.1 mmol/L (8-16); BLOOD UREA NITROGEN 5 mg/dL (7-26); BUN/CREATININE RATIO 7 (6-25); CALCIUM 8.7 mg/dL (8.4-10.2); CARBON DIOXIDE 24 mmol/L (22-29); CHLORIDE 105 mmol/L (98-107); EST GLOMERULAR FILTRATION RATE > 60 ML/MIN (60-); GLUCOSE 150 mg/dL (74-118); POTASSIUM 4.1 mmol/L (3.5-5.1); SODIUM 136 mmol/L (136-145)
--- NOTE | 2019-05-12 07:00 | NUR ---
RECEIVED BEDSIDE SHIFT REPORT FROM THE TOOLING MANAGER RN. PT DENIES NEEDS AT THIS TIME.
--- NOTE | 2019-05-12 07:14 | NUR ---
REPORT GIVEN TO ONCOMING NURSE.WALKING ROUNDS MADE.PT RESTING IN BED WITH NO S/S OF DISTRESS.
[2019-05-12 07:42] LABS: BASOPHILS % 0.1 % (0.0-1.0); HEMATOCRIT 44.2 % (38.2-49.6); HEMOGLOBIN 15.1 g/dL (14.0-18.0); LYMPHOCYTES # (AUTO) 1.1 (1.0-3.2); LYMPHOCYTES % 9.3 % (18.0-39.1); MEAN CORPUSCULAR HEMOGLOBIN 34.4 pg (28-32); MEAN CORPUSCULAR HGB CONC 34.2 g/dL (31-35); MEAN CORPUSCULAR VOLUME 100.7 fL (81-99); MONOCYTES # (AUTO) 0.6 (0.2-0.8); MONOCYTES % 5.5 % (4.4-11.3); NEUTROPHILS # (AUTO) 9.8 (2.1-6.9); NEUTROPHILS % 84.3 % (38.7-80.0); PLATELET COUNT 285 x10e3/uL (140-360); RED BLOOD COUNT 4.39 x10e6/uL (4.3-5.7); RED CELL DISTRIBUTION WIDTH 13.3 % (11.7-14.4)
[2019-05-12] MEDS: D5.45%NS/KCL 20MEQ 1,000 ML IV SCH (08:00)
[2019-05-12] MEDS: DOCUSATE SODIUM 100 MG CAP PO SCH ×2 (08:15→16:55)
[2019-05-12] MEDS: DILTIAZEM HCL 180 MG CAP ER PO SCH (08:17)
[2019-05-12] MEDS: DIGOXIN 0.125 MG TAB PO SCH (08:18)
[2019-05-12] MEDS: FUROSEMIDE 40 MG TAB PO SCH (08:19)
[2019-05-12] MEDS: FAMOTIDINE 20 MG/2 ML VIAL IV SCH (08:20)
[2019-05-12] MEDS: METOPROLOL SUCCINATE 50 MG TAB XL PO SCH (09:00)
--- NOTE | 2019-05-12 09:00 | NUR ---
PT REFUSED METOPROLOL. HR 60, BP 110/71. PER THE PT, HE DOESN'T WANT METOPROLOL AT THIS TIME SINCE HE GETS DIGOXIN AND DILTIAZEM.
--- NOTE | 2019-05-12 09:00 | NUR ---
SCD IS ON WITH PT.
--- NOTE | 2019-05-12 09:35 | NUR ---
DR GUILHERME SIMMONS AT BEDSIDE TO THE PT. INFORMED PT POTASSIUM LEVEL. OKAY TO DISCONTINUE POTASSIUM THROUGH IV. OKAY TO START FULL LIQUID DIET PER THE
[2019-05-12 10:28] LABS: CHOLESTEROL 179 MD/DL (0-199); TRIGLYCERIDES 120 MG/DL (0-149)
[2019-05-12] MEDS: CEFTRIAXONE SOD 2 GM/NS 100 ML 100 ML IV SCH (12:00)
--- NOTE | 2019-05-12 12:00 | NUR ---
PT AMBULATED ON THE HALLWAY WITHOUT ASSISTANCE.
[2019-05-12 13:11] LABS: CHOL/HDL RATIO 5.4 (3.9-4.7); HDL CHOLESTEROL 33 MG/DL (40-60); LDL CHOLESTEROL 122 MG/DL (60-130)
--- NOTE | 2019-05-12 13:40 | NUR ---
OKAY TO HOLD METOPROLOL FOR THE DAY PER DR. BETTS. HOLD DILTIAZEM FROM TOMORROW PER THE
--- NOTE | 2019-05-12 14:39 | NUR ---
CALLED DR SIMMONS OFFICE REGARDING PT C/O GAS PAIN. NO NEW ORDERS RECEIVED.
[2019-05-12] MEDS ORDERED: BISACODYL 10 MG SUPP PR PRN (14:45)
[2019-05-12] MEDS: MAGNESIUM HYDROXIDE 30 ML UDC PO PRN (14:51)
[2019-05-12] MEDS ORDERED: PROMETHAZINE 12.5MG/ NACL 0.9% 50 ML IV PRN (15:00)
--- NOTE | 2019-05-12 17:04 | Progress Note ---
DATE: 05/12/2019 Cardiology Progress Note SUBJECTIVE: The patient underwent cholecystectomy, feeling well. OBJECTIVE: VITAL SIGNS: Temperature is 97.8, heart rate is 68, respirations 18, blood pressure is 110/71, and ox saturation 96% on room air. GENERAL: Well appearing, well built, in no apparent distress. CARDIOVASCULAR: Regular rate and rhythm. LUNGS: Clear to auscultation. ABDOMEN: Obese, soft, nontender. EXTREMITIES: No edema. CARDIOVASCULAR MEDICATIONS: Reviewed. LABORATORY DATA: Reviewed. Telemetry monitoring revealed atrial fibrillation with episodes of bradycardia. IMPRESSION: 1. Cholelithiasis, status post cholecystectomy. 2. History of congestive heart failure with now preserved left ventricular ejection fraction. 3. Atrial fibrillation. 4. Hypertension. 5. Hyperlipidemia. 6. Obesity. RECOMMENDATIONS: Discontinue diltiazem. Continue digoxin and metoprolol for rate control. Continue close telemetry monitoring. Otherwise, continue all current cardiovascular medications. Suresh Alvarez DO BM/MODL /[id number]
--- NOTE | 2019-05-12 19:00 | NUR ---
BEDSIDE SHIFT REPORT GIVEN TO THE RANCH HAND LIVESTOCK RN. PT DENIED FURTHER NEEDS.
[2019-05-12] MEDS ORDERED: ONDANSETRON HCL INJ 2MG/ML 2ML 2 MG/ML VIAL ONE (20:12)
[2019-05-12] MEDS ORDERED: ACETAMINOPHEN 1000 MG/100 ML IV ONE (20:12)
[2019-05-12] MEDS ORDERED: DEXAMETHASONE SOD PHOS INJ 4 MG/ML VIAL ONE (20:12)
[2019-05-12] MEDS ORDERED: LABETALOL HCL 5 MG/ML 20ML VIAL ONE (20:12)
[2019-05-12] MEDS ORDERED: ROCURONIUM BROMIDE 10 MG/ML 5ML VIAL ONE (20:12)
[2019-05-12] MEDS ORDERED: PROPOFOL IV EMULSION 10 MG/ML 20 ML VIAL ONE (20:12)
[2019-05-12] MEDS ORDERED: SEVOFLURANE INHAL SOLN 250 ML PEN BTL ONE (20:12)
[2019-05-12] MEDS ORDERED: LIDOCAINE HCL 2% LOCAL INJ 5 ML SDV VIAL INJ ONE (20:12)
[2019-05-13] VITALS (9 sets, daily range): BP systolic 109–148; BP diastolic 68–89
[2019-05-13 06:11] LABS: ALANINE AMINOTRANSFERASE 24 IU/L (0-55); ALBUMIN 2.6 g/dL (3.5-5.0); ALBUMIN/GLOBULIN RATIO 0.9 (0.8-2.0); ALKALINE PHOSPHATASE 78 IU/L (40-150); ANION GAP 11.9 mmol/L (8-16); BLOOD UREA NITROGEN 7 mg/dL (7-26); BUN/CREATININE RATIO 9 (6-25); CALCIUM 8.9 mg/dL (8.4-10.2); CARBON DIOXIDE 27 mmol/L (22-29); CHLORIDE 106 mmol/L (98-107); CREATININE, SERUM 0.74 mg/dL (0.72-1.25); EST GLOMERULAR FILTRATION RATE > 60 ML/MIN (60-); GLUCOSE 103 mg/dL (74-118); POTASSIUM 3.9 mmol/L (3.5-5.1); SODIUM 141 mmol/L (136-145)
[2019-05-13] MEDS: POTASSIUM CHLORIDE 10MEQ EA PO SCH (06:20)
--- NOTE | 2019-05-13 06:55 | NUR ---
BEDSIDE SHIFT REPORT GIVEN TO ONCOMING NURSE,PT RESTING IN BED WITH NO S/S OF DISTRESS.
--- NOTE | 2019-05-13 07:00 | NUR ---
BEDSIDE SHIFT REPORT RECEIVED FROM THE CHIEF ESTIMATOR RN. PT DENIES NEEDS AT THIS TIME.
--- NOTE | 2019-05-13 07:30 | NUR ---
PT AMBULATED IN THE HALLWAY WITH THE WALKER. TOLERATED WELL. DENIES NEEDS AT THIS TIME.
[2019-05-13] MEDS: DILTIAZEM HCL 180 MG CAP ER PO SCH (08:15)
[2019-05-13] MEDS: DIGOXIN 0.125 MG TAB PO SCH (08:27)
[2019-05-13] MEDS: METOPROLOL SUCCINATE 50 MG TAB XL PO SCH (08:27)
[2019-05-13] MEDS: FAMOTIDINE 20 MG/2 ML VIAL IV SCH (08:28)
[2019-05-13] MEDS: DOCUSATE SODIUM 100 MG CAP PO SCH ×2 (08:28→17:00)
[2019-05-13] MEDS: FUROSEMIDE 40 MG TAB PO SCH (08:28)
[2019-05-13 09:34] LABS: BASOPHILS % 0.3 % (0.0-1.0); EOSINOPHILS # (AUTO) 0.1 (0.0-0.4); EOSINOPHILS % 0.6 % (0.0-6.0); HEMATOCRIT 45.1 % (38.2-49.6); LYMPHOCYTES # (AUTO) 2.1 (1.0-3.2); LYMPHOCYTES % 21.5 % (18.0-39.1); MEAN CORPUSCULAR HGB CONC 33.3 g/dL (31-35); MEAN CORPUSCULAR VOLUME 102.3 fL (81-99); MONOCYTES # (AUTO) 0.9 (0.2-0.8); MONOCYTES % 9.7 % (4.4-11.3); NEUTROPHILS # (AUTO) 6.5 (2.1-6.9); NEUTROPHILS % 67.4 % (38.7-80.0); PLATELET COUNT 272 x10e3/uL (140-360); RED BLOOD COUNT 4.41 x10e6/uL (4.3-5.7); RED CELL DISTRIBUTION WIDTH 13.5 % (11.7-14.4)
[2019-05-13] MEDS: MAGNESIUM HYDROXIDE 30 ML UDC PO PRN (10:02)
[2019-05-13] MEDS: CEFTRIAXONE SOD 2 GM/NS 100 ML 100 ML IV SCH (11:15)
--- NOTE | 2019-05-13 11:25 | NUR ---
DR. Bethany SIMMONS AT BEDSIDE TO SEE THE PT. OKAY TO START REGULAR DIET TODAY PER THE
--- NOTE | 2019-05-13 11:30 | NUR ---
OKAY TO START BLOOD THINNERS FROM TUESDAY PER DR MONTEZ.
--- NOTE | 2019-05-13 13:43 | NUR ---
IM- progress note O/N; no events REVIEW OF SYSTEMS: no f/c/s/N/V/D/RASCON/vision changes/cp/sob/skin rash/vision changes. PHYSICAL EXAMINATION VITAL SIGNS: Have been reviewed. GENERAL: A tired-appearing man resting in bed. HEENT: Anicteric. Pupils react to light. No oral lesions. CARDIOVASCULAR: Normal S1/S2. LUNGS: Moderate breath sounds. No wheezes. ABDOMEN: Soft, Not tender at this time; Negative Richardson sign EXTREMITIES: No edema or calf tenderness. NEUROLOGIC: Alert and oriented x3. He moves all extremities. SKIN: Dry. PSYCHIATRIC: Flat affect. LABS: Reviewed. MEDICATIONS: Reviewed. ASSESSMENT AND PLAN: This is a 58-year-old man. Cholelithiasis ?cholecystitis? Atrial fibrillation Systolic CHF LVEF 40-45% Hx cigarette abuse Hx transaminitis with hyperbilirubinemia with Jaundice Hx cholestasis of the liver Hepatomegaly PLAN get HIDA may need lap darby scd f/u study 05-11 GB dysfunction; will need lap darby; check K; f/u echo. 05/12 Hyerglycemia- check hba1c/lipids 05/13 Robert Charles MD, PhD.
--- NOTE | 2019-05-13 16:38 | Progress Note ---
DATE: 05/13/2019 Cardiology Progress Note SUBJECTIVE: The patient is feeling well. Denies any chest pain, abdominal pain, or shortness of breath. OBJECTIVE: VITAL SIGNS: Temperature is 97.3, heart rate is 68, respirations are 18, blood pressure is 130/82, ox saturation 96% on room air. GENERAL: Well appearing, well built, no apparent distress. CARDIOVASCULAR: Regular rate and rhythm. LUNGS: Clear to auscultation. ABDOMEN: Soft, nontender, nondistended. EXTREMITIES: No clubbing, cyanosis, or edema. CARDIOVASCULAR MEDICATIONS: Reviewed. LABORATORY DATA: Reviewed. TELEMETRY: Monitoring revealed atrial fibrillation with controlled ventricular response. IMPRESSION: 1. Cholelithiasis status post cholecystectomy. 2. History of congestive heart failure, now with preserved left ventricular ejection fraction. 3. Atrial fibrillation. 4. Hypertension. 5. Hyperlipidemia. 6. Obesity. RECOMMENDATIONS: Continue to stay off diltiazem. Continue digoxin and metoprolol for rate control. Resume anticoagulation and home cardiovascular medications. The patient may be discharged from a cardiovascular standpoint with outpatient followup. DO EVE Cunha/TAY /[id number]
--- NOTE | 2019-05-13 19:00 | NUR ---
BEDSIDE SHIFT REPORT GIVEN TO THE MIDDLE SCHOOL TUTOR RN. PT DENIED FURTHER NEEDS.
[2019-05-14 00:34] VITALS: BP 131/85
[2019-05-14 06:08] LABS: BASOPHILS % 0.5 % (0.0-1.0); EOSINOPHILS # (AUTO) 0.1 (0.0-0.4); EOSINOPHILS % 1.6 % (0.0-6.0); HEMATOCRIT 45.8 % (38.2-49.6); HEMOGLOBIN 15.4 g/dL (14.0-18.0); LYMPHOCYTES % 24.4 % (18.0-39.1); MEAN CORPUSCULAR HEMOGLOBIN 34.1 pg (28-32); MEAN CORPUSCULAR HGB CONC 33.6 g/dL (31-35); MEAN CORPUSCULAR VOLUME 101.3 fL (81-99); MONOCYTES # (AUTO) 0.9 (0.2-0.8); MONOCYTES % 10.5 % (4.4-11.3); NEUTROPHILS % 62.4 % (38.7-80.0); PLATELET COUNT 255 x10e3/uL (140-360); RED BLOOD COUNT 4.52 x10e6/uL (4.3-5.7); RED CELL DISTRIBUTION WIDTH 13.5 % (11.7-14.4)
[2019-05-14 06:18] VITALS: BP 147/67
[2019-05-14 06:22] LABS: ANION GAP 12.1 mmol/L (8-16); BLOOD UREA NITROGEN 10 mg/dL (7-26); BUN/CREATININE RATIO 14 (6-25); CALCIUM 9.1 mg/dL (8.4-10.2); CARBON DIOXIDE 25 mmol/L (22-29); CHLORIDE 105 mmol/L (98-107); CREATININE, SERUM 0.71 mg/dL (0.72-1.25); EST GLOMERULAR FILTRATION RATE > 60 ML/MIN (60-); GLUCOSE 102 mg/dL (74-118); POTASSIUM 4.1 mmol/L (3.5-5.1); SODIUM 138 mmol/L (136-145)
[2019-05-14] MEDS: POTASSIUM CHLORIDE 10MEQ EA PO SCH (06:35)
--- NOTE | 2019-05-14 07:12 | NUR ---
BEDSIDE SHIFT REPORT GIVEN TO ONCOMING NURSE,PT RESTING IN BED WITH NO S/S OF DISTRESS.
[2019-05-14 07:50] VITALS: BP 132/77
[2019-05-14] MEDS ORDERED: ZOFRAN4 MG PO (07:55)
[2019-05-14] MEDS ORDERED: PEPCID20 MG PO (07:55)
[2019-05-14] MEDS ORDERED: SENNA LAXATIVE8.6 MG PO (07:55)
[2019-05-14] MEDS ORDERED: COLACE100 MG PO (07:55)
[2019-05-14] MEDS ORDERED: KEFLEX500 MG PO (07:56)
--- NOTE | 2019-05-14 07:57 | NUR ---
D/C summary Principal Dx: Cholelithiasis Gallbladder Dyskinesia Atrial fibrillation Systolic CHF LVEF 40-45% Hx cigarette abuse Hx transaminitis with hyperbilirubinemia with Jaundice Hx cholestasis of the liver Hepatomegaly PLAN get HIDA may need lap darby scd f/u study 05-11 GB dysfunction; will need lap darby; check K; f/u echo. 05/12 Hyerglycemia- check hba1c/lipids 05/13 Hba1c still pending D/c home f/u pcp 1 week and surgery as directed; stable d/c>35mins Robert Charles MD, PhD.
[2019-05-14 08:00] VITALS: BP 132/77
[2019-05-14] MEDS: METOPROLOL SUCCINATE 50 MG TAB XL PO SCH (08:52)
[2019-05-14] MEDS: DIGOXIN 0.125 MG TAB PO SCH (08:52)
[2019-05-14] MEDS: DOCUSATE SODIUM 100 MG CAP PO SCH (08:52)
[2019-05-14] MEDS: FUROSEMIDE 40 MG TAB PO SCH (08:52)
[2019-05-14] MEDS: DILTIAZEM HCL 180 MG CAP ER PO SCH (09:00)
--- NOTE | 2019-05-14 10:30 | NUR ---
Spoke with Dr. Charles at this time to find out if patient is going home on antibiotics because antibiotics were listed on his discharge medications but no prescription on chart. After reviewing chart further Dr. Charles states pt does not need antibiotics for discharge.
== END 2019-05-14 11:11 | disposition home or self-care (01) | DRG 418 ==
LOC: ER 06:25 → ERHOLD 08:45 → MED/SURG3 10:40
PROVIDERS: ADMIT Internal Medicine; ATTEND Internal Medicine
PROC: 0FT44ZZ Resection of Gallbladder, Percutaneous Endoscopic Approach (ICD-10-PCS; principal; 2019-05-11 08:30)
DX: K80.10 Calculus of gallbladder with chronic cholecystitis without obstruction (principal); I50.22 Chronic systolic (congestive) heart failure; I11.0 Hypertensive heart disease with heart failure; F17.200 Nicotine dependence, unspecified, uncomplicated; I48.91 Unspecified atrial fibrillation; Z79.01 Long term (current) use of anticoagulants; Z68.35 Body mass index [BMI] 35.0-35.9, adult; K57.30 Diverticulosis of large intestine without perforation or abscess without bleeding
CPT/HCPCS: 36415; 71045; 74177; 76705; 78227; 80048; 80053; 80061; 81001; 82150; 82550; 82553; 83036; 83690; 83880; 84132; 84484; 85025; 85610; 85730; 88304; 93005; 93306; 99284; A9537; C1766; J0696; J1100; J2001; J2250; J2270; J2405; J3010; J3480; Q9967

== ENCOUNTER 2019-05-26 09:57 | Emergency (ER) | payer OTHER ==
[~2019-05-26] VITALS: Ht 188 cm; Wt 125.6 kg
[~2019-05-26 09:57] MED LIST changes: +ALBUTEROL0.63 MG/3 INH; +COLACE100 MG PO; +DIGOXIN125 MCG PO; +DILTIAZEM 24HR180 MG PO; +ELIQUS PO; +FLONASE INH; +KEFLEX500 MG PO; +LASIX40 MG PO; +METOPROLOL TART50 MG PO; +PEPCID20 MG PO; +POTASSIUM CHLO10 ME1 PO; +SENNA LAXATIVE8.6 MG PO; +ZOFRAN4 MG PO
--- OUTSIDE RECORDS SUMMARY | 2019-05-26 10:03 | XMS REPORT | Clinical Summary ---
Author Author [facility] Organization [employer] Address Unknown Phone Unavailable Care Team Providers Care Commissions Manager Name Role Phone Juanito Fam MD [...] (Primary Dx); Alcoholic intoxication without complication 05/30/2018 [facility] General Internal Medicine - Encounter 06/01/2018 after 05/25/2018 Social History Date Tobacco Use Types Packs/Day [...] MMODE SPECTRAL 8:28 AM CDT COLOR DOPPLER (42100) LIPID PANEL Routine 08/29/2018 6:00 AM CDT [...] PRELIMINARY Routine 08/28/2018 INTERPRETATION 11:46 PM CDT TX CRITICAL CARE, ADDL 30 Routine 08/28/2018 MIN 11:46 PM CDT TX CRITICAL CARE, E/M Routine 08/28/2018 30-74 MINUTES [...] PRELIMINARY Routine 06/19/2018 INTERPRETATION 6:19 PM CDT TX CRITICAL CARE, E/M Routine 06/19/2018 30-74 MINUTES 6:19 PM CDT TX RESUPERF WND BODY Routine 06/19/2018 7.6-12.5 CM [...] ECG 12-LEAD STAT 06/16/2018 1:45 AM CDT TX APPLY LONG ARM SPLINT Routine 06/16/2018 1:39 [...] MMODE SPECTRAL 8:12 AM CDT COLOR DOPPLER (36386) LIPID PANEL Routine 05/31/2018 4:17 AM CDT [...] PRELIMINARY Routine 05/30/2018 INTERPRETATION 4:33 PM CDT TX CRITICAL CARE, E/M Routine 05/30/2018 30-74 MINUTES 4:33 PM CDT ECG 12-LEAD STAT 05/30/2018 4:32 PM CDT after 05/25/2018 Results * Estimated GFR (08/31/2018 4:18 AM CDT) Only the most recent of 4 results within the time period is included. Pathologist [facility] Estimated GFR >=90 mL/min/1.73 m2 [facility] DEPARTMENT Comment: OF PATHOLOGY CatergoryUnitsInte AND GENOMIC rpretation MEDICINE G1 >=90 Normal or high G2 60-89Mildly decreased [id number] Mildly to moderately decreased [id number] Moderately to severely decreased G4 15-29Severely decreased G5 <15Kidney failure The eGFR was calculated using the Chronic Kidney Disease Epidemiology Collaboration (CKD-EPI) equation. Interpretation is based on recommendations of the National Kidney Foundation-Kidney Disease Outcomes Quality Initiative (NKF-KDOQI) published in 2014. Specimen Plasma specimen Performing Organization Address City/State/Zipcode Phone Number [phone] [place] [address] PATHOLOGY AND [facility] * CBC with platelet and differential (08/31/2018 4:18 AM CDT) Only the most recent of 9 results within the time period is included. Pathologist [facility] WBC 8.7 4.2 - 11.0 k/uL [facility] DEPARTMENT OF PATHOLOGY AND GENOMIC MEDICINE RBC 4.63 4.04 - 5.86 m/uL [facility] PATHOLOGY AND GENOMIC MEDICINE HGB 14.9 13.0 - 17.3 g/dL [facility] PATHOLOGY AND GENOMIC MEDICINE HCT 45.5 (H) 34.0 - 45.0 % [facility] DEPARTMENT PATHOLOGY AND GENOMIC MEDICINE MCV 98.3 (H) 80.0 - 98.0 fL [facility] DEPARTMENT OF PATHOLOGY AND GENOMIC MEDICINE MCH 32.2 27.0 - 34.0 pg [facility] DEPARTMENT OF PATHOLOGY AND GENOMIC MEDICINE MCHC 32.7 31.5 - 36.5 g/dL [facility] DEPARTMENT OF PATHOLOGY AND GENOMIC MEDICINE RDW - SD 46.9 37.0 - 51.0 fL [facility] DEPARTMENT OF PATHOLOGY AND GENOMIC MEDICINE MPV 9.4 7.4 - 10.4 fL [facility] DEPARTMENT OF PATHOLOGY AND GENOMIC MEDICINE Platelet count 245 150 - 400 k/uL [facility] DEPARTMENT OF PATHOLOGY AND GENOMIC MEDICINE Nucleated RBC 0.00 /100 WBC [facility] DEPARTMENT OF PATHOLOGY AND GENOMIC MEDICINE Neutrophils 61.2 36.0 - 66.0 % [facility] DEPARTMENT OF PATHOLOGY AND GENOMIC MEDICINE Lymphocytes 25.8 24.0 - 44.0 % [facility] DEPARTMENT OF PATHOLOGY AND GENOMIC MEDICINE Monocytes 10.1 (H) 0.0 - 6.0 % [facility] DEPARTMENT OF PATHOLOGY AND GENOMIC MEDICINE Eosinophils 1.7 0.0 - 6.0 % [facility] DEPARTMENT OF PATHOLOGY AND GENOMIC MEDICINE Basophils 0.5 0.0 - 1.2 % [facility] DEPARTMENT OF PATHOLOGY AND GENOMIC MEDICINE Immature 0.7 0.0 - 1.0 % [facility] granulocytes OF PATHOLOGY AND GENOMIC MEDICINE Specimen Blood Performing Organization Address City/[facility] Centercode Phone Number [address] [place] [address] PATHOLOGY AND [facility] MEDICINE * Basic metabolic panel (08/31/2018 4:18 AM CDT) Only the most recent of 3 results within the time period is included. Pathologist [facility] Sodium 137 135 - 150 mEq/L [facility] DEPARTMENT OF PATHOLOGY AND GENOMIC MEDICINE Potassium 4.4 3.5 - 5.0 mEq/L [facility] DEPARTMENT OF PATHOLOGY AND GENOMIC MEDICINE Chloride 102 98 - 112 mEq/L [facility] DEPARTMENT OF PATHOLOGY AND GENOMIC MEDICINE CO2 26 24 - 31 mmol/L [facility] DEPARTMENT OF PATHOLOGY AND GENOMIC MEDICINE Anion gap 9@ANIO 7 - 15 mEq/L [facility] DEPARTMENT OF PATHOLOGY AND GENOMIC MEDICINE BUN 19 (H) 7 - 18 mg/dL [facility] DEPARTMENT OF PATHOLOGY AND GENOMIC MEDICINE Creatinine 0.80 0.70 - 1.20 mg/dL [facility] DEPARTMENT OF PATHOLOGY AND GENOMIC MEDICINE Glucose 115 (H) 65 - 100 mg/dL [facility] DEPARTMENT OF PATHOLOGY AND GENOMIC MEDICINE Calcium 9.3 8.3 - 10.2 mg/dL [facility] DEPARTMENT OF PATHOLOGY AND GENOMIC MEDICINE Specimen Plasma specimen Performing Organization Address City/[facility] Centercode Phone Number [address] [place] [address] PATHOLOGY AND [facility] * Urine drugs of abuse screen (08/30/2018 8:49 PM CDT) Amphetamine Negative [facility] DEPARTMENT screen, urine OF PATHOLOGY AND GENOMIC MEDICINE Barbiturate Negative [facility] DEPARTMENT screen, urine OF PATHOLOGY AND GENOMIC MEDICINE Benzodiazepine Negative [facility] screen, urine OF PATHOLOGY AND GENOMIC MEDICINE Cannabinoid Negative [facility] DEPARTMENT screen, urine OF PATHOLOGY AND GENOMIC MEDICINE Cocaine screen, Negative [facility] DEPARTMENT urine OF PATHOLOGY AND GENOMIC MEDICINE Methadone Negative [facility] DEPARTMENT metabolite OF PATHOLOGY (EDDP), urine AND GENOMIC MEDICINE Opiates screen, Negative [facility] DEPARTMENT urine OF PATHOLOGY AND GENOMIC MEDICINE Phencyclidine Negative [facility] DEPARTMENT screen, urine OF PATHOLOGY AND GENOMIC MEDICINE Specimen Urine Performing Organization Address City/[facility]/Zipcode Phone Number [facility] [address] [place] [address] PATHOLOGY AND [facility] MEDICINE * Urinalysis, automated with microscopy (08/30/2018 8:49 PM CDT) Color, UA Yellow [facility] DEPARTMENT OF PATHOLOGY AND GENOMIC MEDICINE Appearance, UA Clear [facility] DEPARTMENT OF PATHOLOGY AND GENOMIC MEDICINE Specific 1.017 1.001 - 1.035 [facility] DEPARTMENT gravity, OF PATHOLOGY AND GENOMIC MEDICINE pH, UA 6.0 5.0 - 8.5 [facility] DEPARTMENT OF PATHOLOGY AND GENOMIC MEDICINE Protein, UA Negative Negative [facility] DEPARTMENT OF PATHOLOGY AND GENOMIC MEDICINE Glucose, UA Negative Negative [facility] DEPARTMENT OF PATHOLOGY AND GENOMIC MEDICINE Ketones, UA Negative Negative [facility] DEPARTMENT OF PATHOLOGY AND GENOMIC MEDICINE Bilirubin, UA Negative Negative [facility] DEPARTMENT OF PATHOLOGY AND GENOMIC MEDICINE Blood, UA Negative Negative [facility] DEPARTMENT OF PATHOLOGY AND GENOMIC MEDICINE Nitrite, UA Negative Negative [facility] DEPARTMENT OF PATHOLOGY AND GENOMIC MEDICINE Urobilinogen, Negative <2.0 [facility] DEPARTMENT UA OF PATHOLOGY AND GENOMIC MEDICINE Leukocyte Negative Negative [facility] DEPARTMENT esterase, UA OF PATHOLOGY AND GENOMIC MEDICINE WBC, UA 1 0 - 1 /HPF [facility] DEPARTMENT OF PATHOLOGY AND GENOMIC MEDICINE RBC, UA 1 0 - 5 /HPF [facility] DEPARTMENT OF PATHOLOGY AND GENOMIC MEDICINE Bacteria, UA None seen None seen [facility] DEPARTMENT OF PATHOLOGY AND GENOMIC MEDICINE Yeast, UA None seen [facility] DEPARTMENT OF PATHOLOGY AND GENOMIC MEDICINE Yeast with None seen [facility] DEPARTMENT pseudohyphae, OF PATHOLOGY UA AND GENOMIC MEDICINE Specimen Urine Performing Organization Address City/[facility]/Zipcode Phone Number [facility] [address] [place] [address] PATHOLOGY AND GENOMIC MEDICINE * Echocardiogram complete [...] the aortic valve leaflets. Performing Organization Address City/[facility] Centercode Phone Number [facility] [address] [place] [address] * Troponin (08/29/2018 6:00 AM CDT) Only the most recent of 10 results within the time period is included. [facility] Troponin <0.30 0.00 - 0.30 ng/mL [facility] DEPARTMENT Comment: OF PATHOLOGY 0.11 - 1.49 AND GENOMIC ng/mlMay MEDICINE indicate increased risk of acute coronary syndrome. >=1.5 ng/ml Consistent with acute myocardial infarction. The diagnostic value of a single normal or non-diagnostic result is questionable.Serial samples at 2-6 hour intervals are required to rule out acute myocardial injury. Specimen Plasma specimen Performing Organization Address City/[facility] Centercode Phone Number [facility] DEPARTMENT OF [address] [place] [address]. [place] [address] PATHOLOGY AND [facility] MEDICINE * Magnesium level (08/29/2018 6:00 AM CDT) Only the most recent of 4 results within the time period is included. [facility] Magnesium 1.90 1.60 - 2.60 mg/dL [facility] DEPARTMENT OF PATHOLOGY AND [facility] MEDICINE Specimen Plasma specimen Performing Organization Address City/[facility] Centercode Phone Number [facility] DEPARTMENT OF [address] [place] [address]. [place] [address] PATHOLOGY AND [facility] MEDICINE * Lipid panel (08/29/2018 6:00 AM CDT) Only the most recent of 4 results within the time period is included. [facility] Cholesterol 202 (H) 0 - 199 mg/dL [facility] DEPARTMENT OF PATHOLOGY AND GENOMIC MEDICINE Triglycerides 251 (H) 0 - 149 mg/dL [facility] DEPARTMENT OF PATHOLOGY AND GENOMIC MEDICINE HDL cholesterol 39 (L) 40 - 9,999 mg/dL [facility] DEPARTMENT OF PATHOLOGY AND GENOMIC MEDICINE LDL cholesterol 140 (H)Comment: Result 0 - 99 mg/dL [facility] DEPARTMENT obtained by direct LDL OF PATHOLOGY measurement AND GENOMIC MEDICINE Lipid panel See below [facility] DEPARTMENT interpretation Comment: OF PATHOLOGY Total Cholesterol AND GENOMIC (mg/dL) MEDICINE LDL Cholesterol (mg/dL) <200 Desirable <100 Optimal 200-239Borderline -[id number] 29Near or above optimal >=240High 130-159Borderline- high [...] mg/dL) Specimen Plasma specimen Performing Organization Address City/[facility] Centercode Phone Number [facility] [address] [place] [address] PATHOLOGY AND [facility] MEDICINE * Digoxin level (08/29/2018 2:44 AM CDT) Only the most recent of 2 results within the time period is included. Digoxin <0.3 (L) 0.8 - 2.0 ng/mL [facility] DEPARTMENT Comment: OF PATHOLOGY For valid Digoxin results, at AND GENOMIC least 6 hours should elapse MEDICINE between time of last dose and collection of blood. Otherwise, result may be false high. Therapeutic Range: 0.8 - 2.0 ng/mL Specimen Blood Performing Organization Address [facility] Phone Number [phone] [place] [address] PATHOLOGY AND GENOMIC MEDICINE * XR Chest [...] part to technique. No acute osseous abnormalities. [id number] Procedure Note Hm Interface, Radiology Results Incoming - 08/29/2018 12:17 AM CDT EXAMINATION: XR CHEST 1 VW PORTABLE CLINICAL HISTORY: chest pain COMPARISON: 05/30/2018. IMPRESSION: The lungs are clear. No pleural effusion or pneumothorax. Cardiac silhouette appears prominent due in part to technique. No acute osseous abnormalities. [id number] Performing Organization Address City/State/Zipcode Phone Number [facility] [address] [place] [address] * ECG ED Preliminary Interpretation - NOT AN ORDER (08/28/2018 11:46 PM CDT) Only the most recent of 3 results within the time period is included. Narrative Performed At Gaurav Mcdonald MD 09/01/20187:56 PM ECG ED Preliminary Interpretation - Not an Order Performed by: GAURAV MCDONALD Authorized by: GAURAV MCDONALD ECG reviewed by ED Physician in the absence of a wedding cake designer: yes Previous ECG: Previous ECG:Compared to current [...] results within the time period is included. [facility] BNP 82 0 - 100 pg/mL [facility] OF PATHOLOGY AND GENOMIC MEDICINE Specimen Blood Performing Organization Address City/State/Zipcode Phone Number [place] [address] [place] [address] PATHOLOGY AND [facility] * Comprehensive metabolic panel (08/28/2018 11:34 PM CDT) Only the most recent of 8 results within the time period is included. [facility] Sodium 140 135 - 150 mEq/L [facility] DEPARTMENT OF PATHOLOGY AND GENOMIC MEDICINE Potassium 5.1 (H) 3.5 - 5.0 mEq/L [facility] DEPARTMENT OF PATHOLOGY AND GENOMIC MEDICINE Chloride 103 98 - 112 mEq/L [facility] OF PATHOLOGY [facility] GENOMIC MEDICINE CO2 23 (L) 24 - 31 mmol/L [facility] DEPARTMENT OF PATHOLOGY AND GENOMIC MEDICINE Anion gap 14@ANIO 7 - 15 mEq/L [facility] DEPARTMENT OF PATHOLOGY AND GENOMIC MEDICINE BUN 13 7 - 18 mg/dL [facility] DEPARTMENT OF PATHOLOGY AND GENOMIC MEDICINE Creatinine 0.80 0.70 - 1.20 mg/dL [facility] DEPARTMENT OF PATHOLOGY AND GENOMIC MEDICINE Glucose 91 65 - 100 mg/dL [facility] DEPARTMENT OF PATHOLOGY AND GENOMIC MEDICINE Calcium 9.1 8.3 - 10.2 mg/dL [facility] DEPARTMENT OF PATHOLOGY AND GENOMIC MEDICINE Protein 7.3 6.3 - 8.3 g/dL [facility] DEPARTMENT OF PATHOLOGY AND GENOMIC MEDICINE Albumin 3.5 3.5 - 5.0 g/dL [facility] DEPARTMENT OF PATHOLOGY AND GENOMIC MEDICINE A/G ratio 0.9 0.7 - 3.8 [facility] DEPARTMENT OF PATHOLOGY AND GENOMIC MEDICINE Alkaline 134 (H) 0 - 129 U/L [facility] DEPARTMENT phosphatase OF PATHOLOGY AND GENOMIC MEDICINE AST 33 10 - 50 U/L [facility] DEPARTMENT OF PATHOLOGY AND GENOMIC MEDICINE ALT 17 5 - 50 U/L [facility] DEPARTMENT OF PATHOLOGY AND GENOMIC MEDICINE Total bilirubin 0.3 0.2 - 1.2 mg/dL [facility] DEPARTMENT OF PATHOLOGY AND GENOMIC MEDICINE Specimen Plasma specimen Performing Organization Address [facility] Phone Number [facility] [address] [place] [address] PATHOLOGY AND GENOMIC MEDICINE * ECG 12 [...] MUSE EKG impression Atrial fibrillation with rapid [facility] MUSE ventricular response-Nonspecific ST and T wave abnormality-Abnormal ECG-In automated comparison with ECG of 19-JUN-2018 18:23,-Vent. rate has increased BY75 BPM-Nonspecific T wave abnormality now evident in Lateral leads- Specimen Performing Organization Address [facility] Phone Number [facility] [address] [place] [address] * Lactic acid level (06/20/2018 5:40 AM CDT) Only the most recent of 3 results within the time period is included. [facility] Lactic acid 0.7 0.5 - 2.2 mmol/L [facility] DEPARTMENT OF PATHOLOGY AND GENOMIC MEDICINE Specimen Blood Performing Organization Address City/[facility] Centercode Phone Number [facility] DEPARTMENT OF [address] [place] [address] PATHOLOGY AND GENOMIC MEDICINE * Estimated GFR (06/20/2018 5:07 AM CDT) Only the most recent of 7 results within the time period is included. GFR Non Af Amer >90 mL/min/1.73 m2 [facility] DEPARTMENT OF PATHOLOGY AND GENOMIC MEDICINE GFR Af Amer >90 mL/min/1.73 m2 [facility] DEPARTMENT Comment: OF PATHOLOGY Chronic kidney [...] Americans. Specimen Plasma specimen Performing Organization Address City/[facility] Centercode Phone Number [facility] [address] [place] [address] PATHOLOGY AND [facility] MEDICINE * Alcohol level, blood (06/20/2018 5:07 AM CDT) Only the most recent of 6 results within the time period is included. Alcohol None Detected mg/dL [facility] DEPARTMENT Comment: OF PATHOLOGY Normal AND GENOMIC None MEDICINE Detected Legal Intoxication in [place] 80 mg/dL (0.08%) Toxic Concentration 200 mg/dL (0.2%) Potentially Fatal 350-500 mg/dL (0.35%-0.5%) Alcohol percent None Detected % [facility] DEPARTMENT OF PATHOLOGY AND GENOMIC MEDICINE Specimen Blood Performing Organization Address City/[facility] Phone Number [facility] OF [address] [place] [address] PATHOLOGY AND [facility] MEDICINE * Beta hydroxybutyrate (06/19/2018 8:20 PM CDT) Beta 0.25 0.02 - 0.27 mmol/L [facility] DEPARTMENT hydroxybutyrate OF PATHOLOGY AND [facility] MEDICINE Specimen Blood Performing Organization Address City/[facility] Centercode Phone Number [place] [phone] [place] [address] PATHOLOGY AND [facility] MEDICINE * CT Head Wo Contrast (06/19/2018 [...] No CT evidence for acute intracranial abnormality. [id number] Procedure Note Interface, Radiology Results Incoming - [...] No CT evidence for acute intracranial abnormality. [id number] Performing Organization Address City/State/Zipcode Phone Number [facility] [address] [place] [address] * CT Cervical Spine Wo Contrast (06/19/2018 8:13 PM CDT) Specimen Narrative Performed At EXAMINATION: CT [facility]ERVICAL [facility] CLINICAL [facility]: falletohblood thinners. COMPARISON:None TECHNIQUE: Axial [...] to severe bilateral foraminal stenosis at C5-6. [id number] Procedure Note [facility], Radiology Results - 06/19/2018 8:26 PM [...] to severe bilateral foraminal stenosis at C5-6. [id number] Performing Organization Address City/State/Zipcode Phone Number [facility] [address] [place] [address] * Partial thromboplastin time, activated (06/19/2018 6:30 PM CDT) Only the most recent of 3 results within the time period is included. PTT 33.2 23.0 - 36.0 sec [facility] DEPARTMENT Comment: OF PATHOLOGY PTT therapeutic range for AND GENOMIC unfractionated heparin is MEDICINE 61.0-112.0 seconds which corresponds to Anti-Xa 0.3-0.7 U/ml. Note:Change in Panic Value The PTT Panic Value is changing from 110 sec. to 100 sec. due to new instrumentation and reagents. Correlation studies have been performed to validate this result. Specimen Blood Performing Organization Address [facility] Centercode Phone Number [place] [phone] [place] [address] PATHOLOGY AND GENOMIC MEDICINE * Prothrombin time with INR (06/19/2018 6:30 PM CDT) Only the most recent of 3 results within the time period is included. [facility] Prothrombin 15.6 (H) 12.0 - 15.0 sec [facility] DEPARTMENT time OF PATHOLOGY AND GENOMIC MEDICINE INR 1.22 (H) 0.92 - 1.12 [facility] DEPARTMENT Comment: OF PATHOLOGY For patients on anticoagulant AND GENOMIC therapy, reference ranges MEDICINE below: Indication: INR Value Treatment of Venous Thrombosis, 2.0-3.0 pulmonary emboli, or prophylaxis of a venous thrombosis, or systemic emboli. High dose, high risk patients 3.0-4.5 with mechanical valves. NOTE:INR values over 3.0 are sometimes associated with gastrointestinal hemorrhage, especially values over 4.0. Specimen Blood Performing Organization Address [facility] [place] [address] PATHOLOGY AND GENOMIC MEDICINE * Type and screen (06/19/2018 6:30 PM CDT) [facility] ABO grouping O [facility] DEPARTMENT OF PATHOLOGY AND GENOMIC MEDICINE Rh type NEG [facility] DEPARTMENT OF PATHOLOGY AND GENOMIC MEDICINE Antibody screen NEG [facility] DEPARTMENT (gel) OF PATHOLOGY AND GENOMIC MEDICINE Specimen Blood Performing Organization Address [facility] [place] [address] PATHOLOGY AND GENOMIC MEDICINE * POC glucose (06/19/2018 6:27 PM CDT) [facility] POC glucose 99 65 - 100 mg/dL [facility] DEPARTMENT Comment: OF PATHOLOGY Meter ID: [id number] AND GENOMIC Client Specialist: Sylvestre SANTIAGO Specimen Performing Organization Address City/[facility]/[place] [address] PATHOLOGY AND GENOMIC MEDICINE * CRITICAL CARE [...] Lactic acid 2.1 0.5 - 2.2 mmol/L [facility] DEPARTMENT OF PATHOLOGY AND GENOMIC MEDICINE Specimen Blood Performing Organization Address City/[facility] Phone Number [facility] DEPARTMENT [address] [place] [address] PATHOLOGY AND GENOMIC MEDICINE * XR Wrist [...] the wrist. The bones are slightly demineralized. [id number] Procedure Note Hm Interface, Radiology Results Incoming [...] the wrist. The bones are slightly demineralized. [facility]-[id number] Performing Organization Address City/[facility] Cent[facility]ode Phone Number [facility] [address] [place] [address] * Creatine kinase, total (CPK) (06/16/2018 2:05 AM CDT) Creatine kinase 45 39 - 308 U/L [facility] DEPARTMENT OF PATHOLOGY AND GENOMIC MEDICINE Specimen Plasma specimen Narrative Performed At [facility] to Beck Stanley/AJAY at06/16/201803:19 ln [facility] DEPARTMENT OF PATHOLOGY AND GENOMIC MEDICINE Performing Organization Address City/[facility]ercova Phone Number [facility] DEPARTMENT OF [address] [place] [address] PATHOLOGY AND GENOMIC MEDICINE * SPLINT APPLICATION (06/16/2018 1:39 AM CDT) Narrative Performed At Anila Fajardo MD 06/17/2018 10:04 PM Splint Application Performed by: YENI JHA Authorized by: ANILA FAJARDO Consent: Consent obtained:Verbal Consent given by:Patient Risks discussed:Discoloration, numbness, pain and swelling Alternatives discussed:Referral Pre-procedure details: Sensation:Normal Skin color:[place] Procedure details: Laterality:Left Location:Wrist Wrist:L wrist Cast type:Short arm Splint type:Sugar tong Supplies:Cotton padding, Ortho-Glass and sling Post-procedure details: Pain:Improved Sensation:Normal Skin color:[place] Patient tolerance of procedure:Tolerated well, no immediate complications * Phosphorus level (06/01/2018 7:12 AM CDT) Only the most recent of 3 results within the time period is included. [facility] Phosphorus 3.9 2.4 - 4.5 mg/dL [facility] DEPARTMENT OF PATHOLOGY AND GENOMIC MEDICINE Specimen Plasma specimen Performing Organization Address [facility] Phone Number [facility] DEPARTMENT OF [address] [place] [address] PATHOLOGY AND GENOMIC MEDICINE * Gram stain only (05/31/2018 11:00 PM CDT) [facility] Gram stain Few WBC's [facility] DEPARTMENT result Few Gram positive rods OF PATHOLOGY Occasional Gram positive AND GENOMIC cocciin chains MEDICINE Comment: Specimen Information Specimen Source: Urine Specimen Site: Clean catch Specimen Urine Performing Organization Address [facility] Phone Number [facility] [place] [place] [address], [address] [place] [address] PATHOLOGY AND GENOMIC MEDICINE * Urinalysis screen and microscopy, with reflex to culture (05/31/2018 11:00 PM CDT) Specimen site Clean catch [facility] DEPARTMENT OF PATHOLOGY AND GENOMIC MEDICINE Color, UA Yellow [facility] DEPARTMENT OF PATHOLOGY AND GENOMIC MEDICINE Appearance, UA Clear [facility] DEPARTMENT OF PATHOLOGY AND GENOMIC MEDICINE Specific 1.019 1.001 - 1.035 [facility] DEPARTMENT gravity, UA OF PATHOLOGY AND GENOMIC MEDICINE pH, UA 7.0 5.0 - 8.5 [facility] DEPARTMENT OF PATHOLOGY AND GENOMIC MEDICINE Protein, UA Negative Negative [facility] DEPARTMENT OF PATHOLOGY AND GENOMIC MEDICINE Glucose, UA Negative Negative [facility] DEPARTMENT OF PATHOLOGY AND GENOMIC MEDICINE Ketones, UA Negative Negative [facility] DEPARTMENT OF PATHOLOGY AND GENOMIC MEDICINE Bilirubin, UA Negative Negative [facility] DEPARTMENT OF PATHOLOGY AND GENOMIC MEDICINE Blood, UA Negative Negative [facility] DEPARTMENT OF PATHOLOGY AND GENOMIC MEDICINE Nitrite, UA Negative Negative [facility] DEPARTMENT OF PATHOLOGY AND GENOMIC MEDICINE Urobilinogen, 2.0 (A) <2.0 [facility] DEPARTMENT UA OF PATHOLOGY AND GENOMIC MEDICINE Leukocyte Small (A) Negative [facility] DEPARTMENT esterase, UA OF PATHOLOGY AND GENOMIC MEDICINE Epithelial Moderate /HPF [facility] DEPARTMENT cells, UA OF PATHOLOGY AND GENOMIC MEDICINE WBC, UA 3 (H) 0 - 1 /HPF [facility] DEPARTMENT OF PATHOLOGY AND GENOMIC MEDICINE RBC, UA 2 0 - 5 /HPF [facility] DEPARTMENT OF PATHOLOGY AND GENOMIC MEDICINE Bacteria, UA Trace None seen [facility] DEPARTMENT OF PATHOLOGY AND GENOMIC MEDICINE Yeast, UA None seen [facility] DEPARTMENT OF PATHOLOGY AND GENOMIC MEDICINE Yeast with None seen [facility] DEPARTMENT pseudohyphae, OF PATHOLOGY UA AND GENOMIC MEDICINE Specimen Urine Performing Organization Address City/State/Zipcode Phone Number [facility] DEPARTMENT OF [address] [place] [address] PATHOLOGY AND GENOMIC MEDICINE * Urine culture (05/31/2018 11:00 PM CDT) Pathologist [facility] Urine culture Mixed Gram positive cole [facility] DEPARTMENT isolate 10-5 cfu/ml OF PATHOLOGY (A) AND GENOMIC Comment: MEDICINE Specimen Information Specimen Source: Urine Specimen Site: Clean catch Specimen Urine Performing Organization Address City/State/Zipcode Phone Number [facility] DEPARTMENT OF [address] [place] [address] PATHOLOGY AND GENOMIC MEDICINE * Echocardiogram complete [...] the aortic valve leaflets. Performing Organization Address City/[facility]/Zipcode Phone Number [facility] [address] [place] [address] * T3, free (05/31/2018 4:17 AM CDT) T3, free 2.81 2.18 - 3.98 pmol/L [facility] DEPARTMENT OF PATHOLOGY AND GENOMIC MEDICINE Specimen Plasma specimen Performing Organization Address City/[facility] [place] [address] PATHOLOGY AND [facility] MEDICINE * Thyroid stimulating hormone (05/31/2018 4:17 AM CDT) Only the most recent of 2 results within the time period is included. TSH 1.54 0.27 - 4.20 uIU/mL [facility] DEPARTMENT OF PATHOLOGY AND GENOMIC MEDICINE Specimen Plasma specimen Performing Organization Address [facility] [place] [address] PATHOLOGY AND [facility] MEDICINE * Hemoglobin A1c (05/31/2018 4:17 AM CDT) Hemoglobin A1C 5.5 4.0 - 6.0 % [facility] DEPARTMENT Comment: OF PATHOLOGY AND GENOMIC MEDICINE Less than 6% - Goal of therapy for Type II Diabetes Less than 7%-Goal of therapy for Type I Diabetes Less than 8%-Accepta ble control for Type I or Type II Diabetes Greater than 8%-Unacceptabl e control; action indicated. ([id number]) Specimen Blood Performing Organization Address City/State/Zipcode Phone Number [facility] DEPARTMENT OF [address] [place] [address] PATHOLOGY AND GENOMIC MEDICINE * Bilirubin direct (05/30/2018 5:04 PM CDT) Bilirubin <0.2 0.0 - 0.4 mg/dL [facility] DEPARTMENT direct OF PATHOLOGY AND GENOMIC MEDICINE Specimen Plasma specimen Performing Organization Address City/State/Zipcode Phone Number [facility] DEPARTMENT OF [address] [place] [address] PATHOLOGY AND GENOMIC MEDICINE * CRITICAL CARE [...] this patient from another provider.: no after 05/25/2018 Insurance Type Payer Benefit Subscriber ID Effective Phone Address Plan / Dates Group [facility] MEDICA[facility] xxxxxxxxx [id number] [employer] resent [facility] Guarantor Name Account Relation to Date of Phone Billing Address Type Patient Melvin Chapman Personal/F Self 1960 [id number] (Home) [place] [address] Advance Directives Patient has advance care planning documents, and code status on file. For more i nformation, please contact: Evangelist Nava [address] [place] [address] Date Inactivated Comments Code Status Date Activated 11/02/2017 7:56 PM Full Code 10/28/2017 11:24 PM Code Status decision reached by: Patient
[2019-05-26] MEDS ORDERED: SODIUM CHLORIDE 0.9% 1000ML 1,000 ML IV STA (10:42)
[2019-05-26 11:49] LABS: BASOPHILS # (AUTO) 0.1 (0.0-0.1); BASOPHILS % 0.6 % (0.0-1.0); EOSINOPHILS # (AUTO) 0.2 (0.0-0.4); EOSINOPHILS % 1.4 % (0.0-6.0); HEMATOCRIT 47.2 % (38.2-49.6); HEMOGLOBIN 15.9 g/dL (14.0-18.0); LYMPHOCYTES % 19.1 % (18.0-39.1); MEAN CORPUSCULAR HEMOGLOBIN 33.8 pg (28-32); MEAN CORPUSCULAR HGB CONC 33.7 g/dL (31-35); MEAN CORPUSCULAR VOLUME 100.2 fL (81-99); MONOCYTES # (AUTO) 0.8 (0.2-0.8); MONOCYTES % 7.5 % (4.4-11.3); NEUTROPHILS # (AUTO) 7.6 (2.1-6.9); NEUTROPHILS % 70.8 % (38.7-80.0); PLATELET COUNT 322 x10e3/uL (140-360); RED BLOOD COUNT 4.71 x10e6/uL (4.3-5.7); RED CELL DISTRIBUTION WIDTH 13.2 % (11.7-14.4)
[2019-05-26 12:03] LABS: BILIRUBIN,URINE NEGATIVE (NEGATIVE); CLARITY,URINE CLEAR (CLEAR); COLOR,URINE YELLOW (YELLOW); KETONES,URINE NEGATIVE (NEGATIVE); LEUKOCYTE ESTERASE ,URINE NEGATIVE (NEGATIVE); NITRITE,URINE NEGATIVE (NEGATIVE); PROTEIN,URINE DIPSTICK TRACE (NEGATIVE); URINE UROBILINOGEN 0.2 mg/dL (0.2 - 1)
[2019-05-26 12:04] LABS: INR 0.92; PARTIAL THROMBOPLASTIN TIME 30.1 seconds (23.8-35.5); PROTHROMBIN TIME 12.9 seconds (11.9-14.5)
[2019-05-26 12:16] LABS: BACTERIA,URINE FEW /HPF; EPITHELIAL CELLS,URINE FEW /LPF; MUCUS,URINE FEW (RARE); RBC,URINE 0-5 /HPF (0-5); WBC,URINE (MAN) 0-5 /HPF (0-5)
[2019-05-26 12:17] LABS: ALANINE AMINOTRANSFERASE 7 IU/L (0-55); ALBUMIN 2.9 g/dL (3.5-5.0); ALBUMIN/GLOBULIN RATIO 0.9 (0.8-2.0); ALKALINE PHOSPHATASE 126 IU/L (40-150); ANION GAP 14.5 mmol/L (8-16); BLOOD UREA NITROGEN 10 mg/dL (7-26); BUN/CREATININE RATIO 12 (6-25); CALCIUM 9.3 mg/dL (8.4-10.2); CARBON DIOXIDE 28 mmol/L (22-29); CHLORIDE 102 mmol/L (98-107); CREATINE KINASE 16 IU/L (30-200); CREATININE, SERUM 0.82 mg/dL (0.72-1.25); EST GLOMERULAR FILTRATION RATE > 60 ML/MIN (60-); GLUCOSE 106 mg/dL (74-118); LIPASE 18 U/L (8-78); POTASSIUM 3.5 mmol/L (3.5-5.1); SODIUM 141 mmol/L (136-145)
--- NOTE | 2019-05-26 13:36 | Diagnostic Imaging Report ---
EXAM: CT of the abdomen and pelvis WITH contrast HISTORY: Abdominal cramping, postcholecystectomy 2 weeks ago, pain COMPARISON: None. TECHNIQUE: The abdomen and pelvis were scanned utilizing a multidetector helical scanner. Coronal and sagittal reformats are provided. PROTOCOL: Routine IV CONTRAST: 100 cc of Isovue-370. ORAL CONTRAST: None, which limits sensitivity and specificity of the exam. RADIATION DOSE: Total DLP: 834.16 mGy*cm Estimated effective dose: (DLP x 0.015 x size factor) Dose modulation, iterative reconstruction, and/or weight based adjustment of the mA/kV was utilized to reduce the radiation dose to as low as reasonably achievable. COMPLICATIONS: None FINDINGS: LOWER THORAX: Unremarkable. HEPATOBILIARY: No mass. No biliary dilation. Metallic clips in the right upper quadrant of the abdomen are compatible with prior cholecystectomy. SPLEEN: No splenomegaly. PANCREAS: No focal masses or ductal dilatation. ADRENALS: No discrete adrenal nodule. KIDNEYS/URETERS: No hydronephrosis, stones, or definite solid mass lesions. PELVIC ORGANS/BLADDER: The visualized pelvic organs appear unremarkable. GI TRACT: No dilation or wall thickening identified. The appendix is normal. Mild colonic diverticulosis, most notably in the sigmoid, without evidence of acute diverticulitis. PERITONEUM / RETROPERITONEUM: No free air or fluid. LYMPH NODES: No pathologically enlarged lymph node. VESSELS: Diffuse scattered atherosclerotic vascular calcifications. BONES: Diffusely decreased mineralization of the osseous structures limits bone detail. Age-indeterminate compression deformities of L1, mild of the superior endplate, and L5, moderate central. Sequela of chronic avascular process of the right femoral head with mild subchondral collapse. SOFT TISSUES: Mild nonspecific ventral abdominal wall focal fat stranding, presumably in the regions of the portals from the recent surgery. No loculated fluid collection. IMPRESSION: 1. Status post cholecystectomy, no abscess. 2. No bowel obstruction or ileus. 3. Colonic diverticulosis without diverticulitis. 4. Diffuse osseous demineralization with age-indeterminate compression fracture deformities of L1 and L5. Signed by: Dr. Alvaro Quezada D.O., M.M.M. on 05/26/2019 1:33 PM
[2019-05-26 14:48] VITALS: BP 118/68
--- NOTE | 2019-05-26 14:58 | NUR ---
3 SUTURES REMOVED FROM LATERAL INCISION SITE. INCISION REMAINS INTACT, NO DRAINAGE NOTED, PT TOLERATED WELL
[2019-05-26] MEDS ORDERED: IOPAMIDOL 370 MG/ML 200 ML INFUS..BTL INJ ONE (17:08)
[2019-05-26] MEDS ORDERED: SODIUM CHLORIDE 0.9% 50ML 50 ML ONE (17:08)
== END 2019-05-26 14:59 | disposition home or self-care (01) ==
LOC: ER 09:57
DX: R10.84 Generalized abdominal pain (principal); L53.8 Other specified erythematous conditions; Z98.890 Other specified postprocedural states
CPT/HCPCS: 36415; 74177; 80053; 81001; 82550; 82553; 83690; 84484; 85025; 85610; 85730; 87086; 99283; J7030; Q9967

== ENCOUNTER 2022-01-11 14:02 | Emergency (ER) | payer OTHER ==
[~2022-01-11] VITALS: Ht 188 cm; Wt 117.9 kg
[~2022-01-11 14:02] MED LIST changes: +ULTRAM50 MG PO
[2022-01-11] MEDS ORDERED: HYDROCODONE/APAP 5MG-325MG TAB PO ONE (14:15)
[2022-01-11] MEDS ORDERED: SODIUM CHLORIDE 0.9% 1000ML 1,000 ML IV ONE (14:45)
[2022-01-11] MEDS ORDERED: PIPERACILLIN/TAZOBACTAM 3.375 GM in SODIUM CHLORIDE 0.9% 50ML 50 ML IV SCH (15:00)
[2022-01-11 15:10] LABS: BASOPHILS % 0.5 % (0.0-1.0); EOSINOPHILS # (AUTO) 0.1 (0.0-0.4); EOSINOPHILS % 0.9 % (0.0-6.0); HEMATOCRIT 44.8 % (38.2-49.6); HEMOGLOBIN 15.7 g/dL (14.0-18.0); LYMPHOCYTES # (AUTO) 1.3 (1.0-3.2); LYMPHOCYTES % 15.7 % (18.0-39.1); MEAN CORPUSCULAR HEMOGLOBIN 37.3 pg (28-32); MEAN CORPUSCULAR VOLUME 106.4 fL (81-99); MONOCYTES # (AUTO) 0.8 (0.2-0.8); MONOCYTES % 9.9 % (4.4-11.3); NEUTROPHILS # (AUTO) 5.9 (2.1-6.9); NEUTROPHILS % 72.5 % (38.7-80.0); PLATELET COUNT 245 x10e3/uL (140-360); RED BLOOD COUNT 4.21 x10e6/uL (4.3-5.7); RED CELL DISTRIBUTION WIDTH 12.6 % (11.7-14.4)
[2022-01-11 15:28] LABS: ALBUMIN 2.9 g/dL (3.5-5.0); ALBUMIN/GLOBULIN RATIO 0.9 (0.8-2.0); ANION GAP 12.9 mmol/L (8-16); CREATININE, SERUM 0.9 mg/dL (0.72-1.25); POTASSIUM 3.9 mmol/L (3.5-5.1)
[2022-01-11] MEDS ORDERED: IBUPROFEN600 MG PO (16:50)
[2022-01-11] MEDS ORDERED: CEPHALEXIN500 MG PO (16:50)
[2022-01-11] MEDS ORDERED: Vancomycin IV 1 GM in SODIUM CHLORIDE 0.9% 250ML 250 ML IV SCH (18:00)
[2022-01-11 18:44] VITALS: BP 112/99
== END 2022-01-11 18:45 | disposition home or self-care (01) ==
LOC: ER 14:16
DX: L03.116 Cellulitis of left lower limb (principal); R50.9 Fever, unspecified; I10 Essential (primary) hypertension; I50.9 Heart failure, unspecified; I48.91 Unspecified atrial fibrillation; E66.01 Morbid (severe) obesity due to excess calories; Z87.19 Personal history of other diseases of the digestive system
CPT/HCPCS: 36415; 73630; 80053; 83605; 85025; 87040; 99284; J2543; J3370; J7030; J7050; U0002

== ENCOUNTER 2022-01-17 09:51 | Emergency (ER) | payer OTHER ==
[~2022-01-17] VITALS: Ht 188 cm; Wt 117.9 kg
[~2022-01-17 09:51] MED LIST changes: +CEPHALEXIN500 MG PO; +IBUPROFEN600 MG PO
[2022-01-17 10:37] VITALS: BP 126/86
== END 2022-01-17 10:37 | disposition home or self-care (01) ==
LOC: ER 09:57
DX: L03.116 Cellulitis of left lower limb (principal); I10 Essential (primary) hypertension; I50.9 Heart failure, unspecified; I48.91 Unspecified atrial fibrillation; E66.01 Morbid (severe) obesity due to excess calories; Z87.19 Personal history of other diseases of the digestive system
CPT/HCPCS: 99283

== ENCOUNTER 2022-01-20 02:35 | Emergency (ER) | payer OTHER ==
[~2022-01-20] VITALS: Ht 188 cm; Wt 117.9 kg
[2022-01-20] MEDS ORDERED: SODIUM CHLORIDE 0.9% 1000ML 1,000 ML IV STA ×2 (02:49→04:49)
[2022-01-20 03:58] LABS: BASOPHILS % 0.6 % (0.0-1.0); EOSINOPHILS # (AUTO) 0.1 (0.0-0.4); EOSINOPHILS % 0.7 % (0.0-6.0); HEMATOCRIT 46.9 % (38.2-49.6); HEMOGLOBIN 16.6 g/dL (14.0-18.0); LYMPHOCYTES # (AUTO) 1.9 (1.0-3.2); LYMPHOCYTES % 26.8 % (18.0-39.1); MEAN CORPUSCULAR HEMOGLOBIN 37.3 pg (28-32); MEAN CORPUSCULAR HGB CONC 35.4 g/dL (31-35); MEAN CORPUSCULAR VOLUME 105.4 fL (81-99); MONOCYTES # (AUTO) 0.6 (0.2-0.8); MONOCYTES % 8.9 % (4.4-11.3); NEUTROPHILS # (AUTO) 4.5 (2.1-6.9); PLATELET COUNT 294 x10e3/uL (140-360); RED BLOOD COUNT 4.45 x10e6/uL (4.3-5.7)
[2022-01-20] MEDS ORDERED: DIGOXIN INJ 0.25 MG/ML 2 ML AMP IV STA (04:08)
[2022-01-20] MEDS ORDERED: DILTIAZEM HCL 5 MG/ML 5 ML VIAL IV STA ×2 (04:08→06:00)
[2022-01-20] MEDS ORDERED: METOPROLOL TARTRATE INJ 1 MG/ML VIAL IV STA (04:08)
[2022-01-20 04:15] LABS: ALBUMIN 3.3 g/dL (3.5-5.0); ALBUMIN/GLOBULIN RATIO 0.9 (0.8-2.0); CALCIUM 9.5 mg/dL (8.4-10.2); CREATININE, SERUM 0.85 mg/dL (0.72-1.25)
== END 2022-01-20 08:02 | disposition home or self-care (01) ==
LOC: ER 02:52
DX: M54.50 Low back pain, unspecified (principal); F10.129 Alcohol abuse with intoxication, unspecified; I10 Essential (primary) hypertension; I50.9 Heart failure, unspecified; I48.91 Unspecified atrial fibrillation; E66.01 Morbid (severe) obesity due to excess calories; Z87.19 Personal history of other diseases of the digestive system
CPT/HCPCS: 36415; 70450; 71250; 74176; 80053; 80320; 82550; 82553; 83880; 84484; 85025; 93005; 99284; J1160; J7030

== ENCOUNTER 2022-03-09 02:39 | Emergency (ER) | payer OTHER ==
[~2022-03-09] VITALS: Ht 188 cm; Wt 117.9 kg
== END 2022-03-09 03:55 | disposition home or self-care (01) ==
LOC: ER 02:43
DX: M79.672 Pain in left foot (principal); G62.9 Polyneuropathy, unspecified; I10 Essential (primary) hypertension; I50.9 Heart failure, unspecified; I48.91 Unspecified atrial fibrillation; E66.01 Morbid (severe) obesity due to excess calories; Z87.19 Personal history of other diseases of the digestive system
CPT/HCPCS: 99283

== ENCOUNTER 2022-06-29 21:43 | Emergency (ER) | payer OTHER ==
[~2022-06-29] VITALS: Ht 188 cm; Wt 117.9 kg
[2022-06-29 22:29] LABS: BASOPHILS % 0.3 % (0.0-1.0); EOSINOPHILS # (AUTO) 0.1 (0.0-0.4); EOSINOPHILS % 0.9 % (0.0-6.0); HEMATOCRIT 53.2 % (38.2-49.6); HEMOGLOBIN 17.8 g/dL (14.0-18.0); LYMPHOCYTES # (AUTO) 2.2 (1.0-3.2); LYMPHOCYTES % 23.4 % (18.0-39.1); MEAN CORPUSCULAR HEMOGLOBIN 34.2 pg (28-32); MEAN CORPUSCULAR HGB CONC 33.5 g/dL (31-35); MEAN CORPUSCULAR VOLUME 102.1 fL (81-99); MONOCYTES # (AUTO) 0.7 (0.2-0.8); MONOCYTES % 7.9 % (4.4-11.3); NEUTROPHILS # (AUTO) 6.3 (2.1-6.9); NEUTROPHILS % 66.9 % (38.7-80.0); PLATELET COUNT 243 x10e3/uL (140-360); RED BLOOD COUNT 5.21 x10e6/uL (4.3-5.7); RED CELL DISTRIBUTION WIDTH 13.3 % (11.7-14.4)
[2022-06-29] MEDS ORDERED: SODIUM CHLORIDE 0.9% 1000ML 1,000 ML IV ONE ×2 (22:30→23:00)
[2022-06-29 22:52] LABS: CREATINE KINASE 27 IU/L (30-200)
[2022-06-29 22:55] LABS: ALBUMIN 3.5 g/dL (3.5-5.0); CALCIUM 8.8 mg/dL (8.4-10.2); CREATININE, SERUM 1.49 mg/dL (0.72-1.25)
[2022-06-29] MEDS ORDERED: SODIUM CHLORIDE 0.9% 1000ML 1,000 ML ONE (23:06)
[2022-06-30] MEDS ORDERED: SODIUM CHLORIDE 0.9% 1000ML 1,000 ML IV ONE
[2022-06-30 02:33] LABS: AMPHETAMINES SCREEN,URINE NEGATIVE (NEGATIVE); BENZODIAZEPINES SCREEN,URINE NEGATIVE (NEGATIVE); CLARITY,URINE SL CLOUDY (CLEAR); COLOR,URINE AMBER (YELLOW); KETONES,URINE TRACE (NEGATIVE); LEUKOCYTE ESTERASE ,URINE NEGATIVE (NEGATIVE); NITRITE,URINE NEGATIVE (NEGATIVE); PHENCYCLIDINE SCREEN,URINE NEGATIVE (NEGATIVE); PROTEIN,URINE DIPSTICK 2+ (NEGATIVE); URINE UROBILINOGEN 0.2 mg/dL (0.2 - 1)
[2022-06-30 02:36] LABS: BACTERIA,URINE FEW /HPF; CALCIUM OXALATE CRYSTALS,UR FEW (FEW); EPITHELIAL CELLS,URINE MANY /LPF; RBC,URINE 0-5 /HPF (0-5); WBC,URINE (MAN) 0-5 /HPF (0-5)
[2022-06-30 02:37] LABS: MUCUS,URINE MODERATE (RARE)
[2022-06-30 03:27] VITALS: BP 116/84
== END 2022-06-30 04:05 | disposition home or self-care (01) ==
LOC: ER 21:49
DX: R42 Dizziness and giddiness (principal); U07.1 COVID-19; I95.9 Hypotension, unspecified; E86.9 Volume depletion, unspecified; I48.20 Chronic atrial fibrillation, unspecified; F10.129 Alcohol abuse with intoxication, unspecified; R19.7 Diarrhea, unspecified; R94.31 Abnormal electrocardiogram [ECG] [EKG]
CPT/HCPCS: 36415; 70450; 71045; 80053; 80307; 80320; 81001; 82550; 82553; 83605; 83880; 84484; 85025; 87040; 93005; 99284; J7030 ×2

== ENCOUNTER 2022-09-14 05:20 | Observation (INO) | payer OTHER ==
[~2022-09-14] VITALS: Ht 188 cm; Wt 119.8 kg
[2022-09-14] MEDS ORDERED: DILTIAZEM HCL 180 MG CAP ER PO STA (05:39)
[2022-09-14] MEDS ORDERED: DIGOXIN 0.125 MG TAB PO ONE (05:45)
[2022-09-14 05:53] LABS: BASOPHILS % 0.4 % (0.0-1.0); EOSINOPHILS # (AUTO) 0.1 (0.0-0.4); HEMATOCRIT 49.3 % (38.2-49.6); HEMOGLOBIN 16.6 g/dL (14.0-18.0); LYMPHOCYTES # (AUTO) 2.7 (1.0-3.2); LYMPHOCYTES % 28.9 % (18.0-39.1); MEAN CORPUSCULAR HEMOGLOBIN 35.2 pg (28-32); MEAN CORPUSCULAR HGB CONC 33.7 g/dL (31-35); MEAN CORPUSCULAR VOLUME 104.4 fL (81-99); MONOCYTES # (AUTO) 0.9 (0.2-0.8); MONOCYTES % 9.8 % (4.4-11.3); NEUTROPHILS # (AUTO) 5.5 (2.1-6.9); NEUTROPHILS % 59.3 % (38.7-80.0); PLATELET COUNT 256 x10e3/uL (140-360); RED BLOOD COUNT 4.72 x10e6/uL (4.3-5.7); RED CELL DISTRIBUTION WIDTH 12.8 % (11.7-14.4)
[2022-09-14] MEDS ORDERED: TETANUS/DIPHTHERIA TOX ADULT 0.5 ML SYR IM ONE (06:00)
[2022-09-14 06:27] LABS: ALBUMIN 3.2 g/dL (3.5-5.0); ANION GAP 18.4 mmol/L (8-16); CALCIUM 9.4 mg/dL (8.4-10.2); CREATININE, SERUM 0.83 mg/dL (0.72-1.25); POTASSIUM 3.4 mmol/L (3.5-5.1)
[2022-09-14 06:30] LABS: SALICYLATE < 5.0 mg/dL (0-30)
[2022-09-14] MEDS ORDERED: DILTIAZEM HCL 5 MG/ML 5 ML VIAL IV STA ×4 (07:07→09:42)
[2022-09-14] MEDS ORDERED: ASPIRIN 81 MG CHEW TAB PO ONE (09:15)
[2022-09-14 13:40] VITALS: BP 149/88
[2022-09-14 14:03] VITALS: BP 149/88
[2022-09-14 14:07] VITALS: BP 149/88
[2022-09-14] MEDS ORDERED: PROAIR HFA INH8.5 GM INH (14:31)
[2022-09-14] MEDS ORDERED: MIRALAX17 GM PO (14:31)
[2022-09-14] MEDS ORDERED: CALCIUM CARBONATE 500 MG CHEWABLE TABS PO PRN (14:45)
[2022-09-14] MEDS ORDERED: PROMETHAZINE 12.5MG/ NACL 0.9% 12.5 MG/50 ML BAG IV PRN (14:45)
[2022-09-14 14:51] LABS: CLARITY,URINE SL CLOUDY (CLEAR); COLOR,URINE AMBER (YELLOW); KETONES,URINE TRACE (NEGATIVE); LEUKOCYTE ESTERASE ,URINE NEGATIVE (NEGATIVE); NITRITE,URINE NEGATIVE (NEGATIVE); PROTEIN,URINE DIPSTICK 1+ (NEGATIVE); URINE UROBILINOGEN 0.2 mg/dL (0.2 - 1)
[2022-09-14 14:59] LABS: AMPHETAMINES SCREEN,URINE NEGATIVE (NEGATIVE); BENZODIAZEPINES SCREEN,URINE NEGATIVE (NEGATIVE); PHENCYCLIDINE SCREEN,URINE NEGATIVE (NEGATIVE)
[2022-09-14 15:06] LABS: AMORPHOUS SEDIMENT,URINE MODERATE (FEW); BACTERIA,URINE FEW /HPF; TRANSITIONAL EPI CELLS,URINE FEW
[2022-09-14 15:26] VITALS: BP 132/76
[2022-09-14] MEDS ORDERED: INFLUENZA VIRUS VAC SPLIT INJ 0.5 ML SYR IM ONE (15:30)
[2022-09-14 15:58] LABS: CREATINE KINASE 52 IU/L (30-200)
[2022-09-14] MEDS ORDERED: SODIUM CHLORIDE 0.9% 250ML 250 ML ONE (16:08)
[2022-09-14 20:00] VITALS: BP 135/83
[2022-09-15] VITALS: BP 131/89
[2022-09-15 04:00] VITALS: BP 136/78
[2022-09-15 04:36] VITALS: BP 131/89
[2022-09-15 06:13] LABS: BASOPHILS % 0.4 % (0.0-1.0); EOSINOPHILS # (AUTO) 0.2 (0.0-0.4); EOSINOPHILS % 1.8 % (0.0-6.0); HEMATOCRIT 43.6 % (38.2-49.6); HEMOGLOBIN 14.8 g/dL (14.0-18.0); LYMPHOCYTES # (AUTO) 2.1 (1.0-3.2); LYMPHOCYTES % 24.1 % (18.0-39.1); MEAN CORPUSCULAR HEMOGLOBIN 34.5 pg (28-32); MEAN CORPUSCULAR HGB CONC 33.9 g/dL (31-35); MEAN CORPUSCULAR VOLUME 101.6 fL (81-99); MONOCYTES # (AUTO) 0.9 (0.2-0.8); MONOCYTES % 10.2 % (4.4-11.3); NEUTROPHILS # (AUTO) 5.4 (2.1-6.9); NEUTROPHILS % 62.9 % (38.7-80.0); PLATELET COUNT 219 x10e3/uL (140-360); RED BLOOD COUNT 4.29 x10e6/uL (4.3-5.7); RED CELL DISTRIBUTION WIDTH 13.4 % (11.7-14.4)
[2022-09-15 06:38] LABS: ANION GAP 13.4 mmol/L (8-16); CALCIUM 8.8 mg/dL (8.4-10.2); CREATININE, SERUM 0.68 mg/dL (0.72-1.25); POTASSIUM 3.4 mmol/L (3.5-5.1)
[2022-09-15] MEDS ORDERED: PANTOPRAZOLE SOD 40 MG TABEC PO SCH (07:30)
[2022-09-15 08:05] VITALS: BP 139/90
[2022-09-15 08:16] VITALS: BP 139/90
[2022-09-15] MEDS ORDERED: SENNA LAX8.6 MG PO (09:36)
[2022-09-15] MEDS ORDERED: ONDANSETRON ODT4 MG PO (09:36)
[2022-09-15] MEDS ORDERED: POTASSIUM CHLORIDE 20 MEQ TAB CR PO ONE (10:30)
[2022-09-15 10:57] LABS: CREATINE KINASE MB 0.7 ng/mL (0-5.0)
== END 2022-09-15 11:18 | disposition home or self-care (01) ==
LOC: ER 05:24 → ERHOLD 09:10 → MED/SURG3 13:26
PROVIDERS: ADMIT Internal Medicine; ATTEND Internal Medicine
DX: S93.312A Subluxation of tarsal joint of left foot, initial encounter (principal); W17.89XA Other fall from one level to another, initial encounter; Z91.81 History of falling; Y93.H9 Activity, other involving exterior property and land maintenance, building and construction; Y92.007 Garden or yard of unspecified non-institutional (private) residence as the place of occurrence of the external cause; E87.6 Hypokalemia; I11.0 Hypertensive heart disease with heart failure; I50.32 Chronic diastolic (congestive) heart failure; E78.5 Hyperlipidemia, unspecified; I25.10 Atherosclerotic heart disease of native coronary artery without angina pectoris
CPT/HCPCS: 0223U; 36415 ×2; 70450; 72125; 73630 ×2; 80048; 80053; 80307; 80320; 80329 ×2; 81001; 82550 ×2; 82553 ×2; 83880; 84484 ×2; 85025 ×2; 90471; 90714; 93005; 94799 ×2; 99284; G0378 ×2; J2550; J7050; S0164

== ENCOUNTER → 2025-08-05 | Day surgery (SDC) | payer OTHER ==
[2025-07-29 12:16] LABS: BASOPHILS % 0.3 % (0.0-1.0); EOSINOPHILS % 1.8 % (0.0-6.0); LYMPHOCYTES % 29.6 % (18.0-39.1); MONOCYTES % 9.9 % (4.4-11.3); NEUTROPHILS % 57.9 % (38.7-80.0); RED CELL DISTRIBUTION WIDTH 14.5 % (11.7-14.4)
[~2025-08-05] MED LIST changes: +ACETAMINOPHEN 1000 MG/100 ML 100 ML IV ONE; +ACETAMINOPHEN 1000 MG/100 ML IV PRN; +ASPIRIN 325 MG TAB PO SCH; +BREZTRI AEROS10.7 GM; +CELECOXIB 100 MG CAP PO SCH; +DIPHENHYDRAMINE HCL INJ 50 MG/ML VIAL IV PRN; +DOCUSATE SODIUM 100 MG CAP PO PRN; +FENTANYL CITRATE/PF 100MCG/2 ML INJ ONE; +HYDROCODONE/APAP 7.5MG-325MG 1 EA TAB PO PRN; +LIDOCAINE HCL 2% LOCAL INJ 5 ML SDV VIAL INJ ONE; +METOPROLOL TARTRATE INJ 1 MG/ML VIAL ONE; +MIDAZOLAM HCL 2 MG/2 ML VIAL ONE; +MIRALAX17 GM PO; +ONDANSETRON HCL INJ 2MG/ML 2ML 2 MG/ML VIAL IV PRN; +ONDANSETRON HCL INJ 2MG/ML 2ML 2 MG/ML VIAL ONE; +ONDANSETRON ODT4 MG PO; +PAROXETINE HCL10 MG PO; +PROAIR HFA INH8.5 GM INH; +PROPOFOL IV EMULSION 10 MG/ML 20 ML VIAL ONE; +ROCURONIUM BROMIDE 1 ML IV ONE; +ROPIVACAINE/EPI/CLONIDINE/KET 50 ML SYRINGE INJ ONE; +SENNA LAX8.6 MG PO; +SEVOFLURANE INHAL SOLN 250 ML PEN BTL ONE; +SODIUM CHLORIDE 0.9% 1000ML 1,000 ML IV SCH; +SOTALOL80 MG PO; +SUGAMMADEX SODIUM 200 MG/2 ML VIAL IV ONE; +XARELTO10 MG PO
[2025-08-05] MEDS: LACTATED RINGER'S 1,000 ML ONE (07:44)
[2025-08-05] MEDS: DEXAMETHASONE SOD PHOS 10 MG/1 ML VIAL ONE (07:44)
[2025-08-05] MEDS: CELECOXIB 200 MG CAP ONE (07:47)
[2025-08-05] MEDS: CEFAZOLIN SODIUM 2 GM ONE (07:47)
[2025-08-05] MEDS: GABAPENTIN 300 MG CAP ONE (07:48)
[2025-08-05] MEDS: HYDROCODONE/APAP 5MG-325MG TAB PO PRN (12:26)
[2025-08-05 15:00] VITALS: BP 104/56; PULSE 65; RESP 17; O2SAT 95
[2025-08-05] MEDS: MIDODRINE HCL 5 MG TABLET PO STA (15:00)
== END | disposition home health service (06) ==
LOC: OR 06:36
PROVIDERS: ATTEND Specialist
DX: M16.11 Unilateral primary osteoarthritis, right hip (principal); I48.91 Unspecified atrial fibrillation; I50.9 Heart failure, unspecified; F41.9 Anxiety disorder, unspecified; Z01.810 Encounter for preprocedural cardiovascular examination; Z01.812 Encounter for preprocedural laboratory examination; Z01.818 Encounter for other preprocedural examination; Z79.02 Long term (current) use of antithrombotics/antiplatelets; Z79.899 Other long term (current) drug therapy; Z87.891 Personal history of nicotine dependence
CPT/HCPCS: 27130; 36415; 71046; 72170; 85025; 86850; 86900; 93005; 97116; 97162; 97530; C1713 ×3; J0131; J1100; J2003; J2250; J2405; J2704; J3010; J7121